=== PATIENT | male | born 1955 | race Caucasian/White ===

== ENCOUNTER 2025-06-30 06:28 | Emergency (ER) | payer MEDICARE, MEDICAID, SELFPAY ==
[2025-06-30] VITALS (9 sets, daily range): BP systolic 146–159; BP diastolic 91–108; PULSE 87–95; RESP 12–25; TEMP 36.4; O2SAT 89–96
--- NOTE | 2025-06-30 07:21 | ECG_ITS ---
Test Date: 2025-06-30 07:41:42 Measurements Intervals [place] Rate: 87 P: 46 WV: 140 QRS: 36 QRSD: 92 T: 89 QT: 381 QTc: 459 Interpretive Statements SINUS RHYTHM DELAYED PRECORDIAL R/S TRANSITION NONSPECIFIC ST & T-WAVE ABNORMALITY- LAT/HIGH LAT LEADS BASELINE ARTIFACT- I, II, AVR, AVL, V1-V2 BORDERLINE ECG Compared to ECG 06/16/2025 10:21:42 HEART RATE HAS DECREASED Possible ischemia no longer present Electronically Signed On 06-30-2025 08:00:09 CDT by Sanjeev Kellogg D.O.
[2025-06-30 07:50] LABS: Hematocrit 38.7 % (42.0-52.0); Hemoglobin 11.8 g/dL (14.0-18.0); Immature Granulocyte Percent A 0.7 % (0-0.5); Lymphocytes Absolute Auto 0.40 K/mm3 (0.9-3.2); Mean Corpuscular HGB Conc 30.5 g/dl (32-36); Mean Corpuscular Hemoglobin 27.1 pg (26-34); Mean Corpuscular Volume 88.8 fl (80-100); Nucleated Red Blood Cells Absolute Auto 0.000 K/mm3 (0.0-0.012); Nucleated Red Blood Cells Perc 0.0 % (0.0-0.2); Platelet Count Result 167 k/mm3 (150-375); Red Blood Count 4.36 M/mm3 (4.6-6.20); White Blood Count 7.5 K/mm3 (4.5-10.0)
[2025-06-30 08:20] LABS: Add Urine Microscopic? YES; Appearance Urine Clear (Clear); Glucose Urine UA Negative (Negative); Leukocyte Esterase Ur Negative LEU/UL (Negative); Nitrate Urine Negative (Negative); Non Pathogenic Casts 0-2; Specific Grav Ur 1.016 (1.001-1.035)
[2025-06-30 08:20] LABS: Alanine Aminotransferase 40 U/L (6-50); Albumin Level 3.3 g/dL (3.5-5.1); Alkaline Phosphatase 103 U/L (38-126); Anion Gap 5 mmol/L (4-12); Aspartate Amino Transferase 59 U/L (17-59); Bilirubin,Total 0.3 mg/dL (0.2-1.3); Blood Urea Nitrogen 45 mg/dL (9-20); Calcium 8.9 mg/dL (8.4-10.2); Carbon Dioxide 35 mmol/L (22-30); Chloride 100 mmol/L (98-107); Estimated CRCL calculation 47 ml/min; Estimated Glomerular Filt Rate 49; Glucose 130 mg/dL (65-110); Potassium 4.5 mmol/L (3.4-5.0); Sodium 140 mmol/L (137-145); Total Protein 6.9 g/dL (6.3-8.2)
[2025-06-30 08:40] LABS: INR 1.2; Prothrombin Time 15.3 Seconds (11.1-14.7)
[2025-06-30 08:41] LABS: Partial Thromboplastin Time 33.4 Seconds (22.3-36.8)
--- OUTSIDE RECORDS SUMMARY | 2025-06-30 09:14 | XMS_ITS | Data Portability ---
Author Organization [facility] Address [address] [place] [address] Care Team Providers Care Day Light Relief Operator Name Role Phone ANUJA BAUMAN Primary Care Provider [phone] Assessment No assessment recorded. Plan of Treatment Reminders Order Date Submit Date Provider Last Modified By Organization Details Last Modified Time Details Appointments None recorded. Lab CBC w/ auto diff 2020 PAULGABRIEL Pang, [address], [address], [place], [address], 11:11:31 ESR (erythrocy te sedimentat ion rate), blood 2020 [facility], 20[address], [address], [place], [address], 11:11:33 C reactive protein, QN, serum or plasma 2020 [facility], 20[address], [address], [place], [address], 11:11:34 HbA1c (hemoglobi n A1c), blood 2020 MARANA Bird, 2022 [address], [address], [place], [address], 11:11:32 basic metabolic 1998 panel, serum or plasma 2020 MARANA Bird, 2022 [address], [address], [place], [address], 1 11:11:31 PSA, total, serum or plasma 2020 021 [facility], 2022 [address], [address], [place], [address], 1 11:11:33 HbA1c (hemoglobi n A1c), blood 2020 021 [facility], 2022 [address] Clarke, [address], [place], [address], 1 18:46:18 BMP, serum or plasma 2020 021 [facility], 2022 Ivan Clarke, [address], [place], [address], 1 18:46:17 glucose, fasting, QN, serum or plasma 2019 020 [facility], 2022 Ivan Clarke, [address], [place], [address], 0 03:04:11 noninvasiv e colorectal cancer DNA + occult blood screening, stool 2019 020 MARANA [facility], [address], [address], [place], [address], 0 10:19:45 hemoglobin + hematocrit , blood 2019 020 [facility], 2022 Ivan Clarke, [address], [place], [address], 0 03:04:11 TSH + free T4, serum 2019 020 [facility], 2022 Ivan Clarke, [address], [place], [address], 0 03:04:11 drug screen, urine 2019 020 [facility], 2022 Ivan Clarke, [address], [place], [address], 0 13:09:03 CBC w/ auto diff 2019 020 [facility], 2022 Ivan Clarke, [address], [place], [address], 0 11:11:10 magnesium, serum or plasma 2019 [facility], 2022 Ivan Clarke, [address], [place], [address], 0 11:11:14 PSA, total, serum or plasma 2019 [facility], 2022 Ivan Clarke, [address], [place], [address], 0 11:11:13 HbA1c (hemoglobi n A1c), blood 2019 020 [facility], 2022 Ivan Clarke, [address], [place], [address], 0 11:11:12 lipid panel, serum 2019 [facility], 2022 Ivan Clarke, [address], [place], [address], 0 11:11:11 microalbum in, urine 2019 [facility], 2022 Ivan Clarke, [address], [place], [address], 0 13:09:05 CMP, serum or plasma 2019 020 [facility], 2022 Ivan Clarke, [address], [place], [address], 0 11:11:10 Referral plasma table operator referral - DM foot ulcer; Please contact pt to schedule an appointmen t. 2020 [facility], [address], [place], [address], 1 09:50:12 diabetic ophthalmol ogy referral 2020 021 kyle Durán MD, [address] , [place], [address], 2 09:03:50 diabetic ophthalmol ogy referral - Please call patient to schedule appt. Thank you 2019 020 cathy Durán MD, [address] , [place], [address], 0 12:50:[address] referral - Please call patient to schedule appt. Thank you 2019 020 cathy Merida (), [address], [place], [address], 0 11:18:45 counseling referral 2019 020 santana Olsen PROJECT ACCOUNT MANAGER, [address] [place], [address], 0 16:54:13 Procedures None recorded. Surgeries None recorded. Imaging XR, foot, 3 or more view - Ulcer, mid plantar aspect of the right foot 2020 021 [facility] ([facility]), [address] [place], [address], 1 15:46:57 LDCT, chest, for lung cancer screening [address] ([facility]), [address] [place], [address], 1 17:23:00 Medication Orders Bactrim DS 800 mg-160 mg tablet 2020 021 [facility], [address] [place], [address], 1 17:04:41 rosuvastat in 10 mg tablet 2020 [facility], [address] [place], [address], 1 17:04:21 losartan 25 mg tablet 2020 [facility], [address] [place] [address], [address], 1 06:12:42 Basaglar KwikPen U-100 Insulin 100 unit/mL (3 mL) [facility] 2020 021 INTERFACE- [id number] [facility], [address] [place] [address], [address], 1 09:37:15 Basaglar KwikPen U-100 Insulin 100 unit/mL (3 mL) [facility] 2019 INTERFACE- [id number] [facility], [address] [place] [address], [address], 1 09:37:15 venlafaxin e ER 37.5 mg capsule,ex tended release 24 hr 2019 [facility], [address] [place] [address], [address], 1 16:34:09 Viagra 100 mg tablet 2019 [facility], [address] [place] [id number], 0 12:56:05 magnesium 400 mg (as magnesium oxide) tablet 2019 [facility], [address] [place], [address], 0 12:21:49 magnesium citrate oral solution 2019 [facility], [address] [place], [address], 0 12:21:57 DOK 100 mg capsule 2019 [facility], [address] [place] [address], [address], 0 12:41:53 OneTouch Verio test strips 2019 [facility], [address] [place] [address], [address], 0 13:52:08 Patient TargetsNo targets recorded. Patient Instructions Encounter Date Encounter Id Patient Instructions Last Modified By Organization Details Last Modified Time 05/06/2020 [id number] Erection Problems: Care Instructions oajao Not available 05/06/2020 12:59:59 HH D/C summary from the October 2019 admission and the most recent discharge (April). Labs Follow up Shower chair oacheyanneo Not available 05/06/2020 13:53:00 Detailed visit oajao Not available 0 05/06/2020 13:50:43 06/10/2020 [id number] type 2 diabetes: care instructions oajao Not available 06/10/2020 12:46:07 anemia: care instructions oajao Not available 06/10/2020 12:46:07 Labs Ophthamolog y Counseling/Psychi atry Restart Effexor, side effects were discussed Increase Basaglar to 8 units HS Follow up in 2 months Follow up on the order for a ROHO cushion Addendum Cologuard oajao Not available 06/10/2020 13:02:02 Detailed visit With regards to his need for assistance at home he has contacted [facility] and the dept of Aging oacheyanneo Not available 06/10/2020 14:10:09 08/24/2020 [id number] Labs as previusl y ordered Adult pull ups Follow up in 3 months oajao Not available 08/24/2020 13:48:12 12/04/2020 [id number] type 2 diabetes: care instructions oajao Not available 12/04/2020 16:17:44 Labs, new and ol d orders Follow up in 4 weeks oajao Not available 12/04/2020 18:45:55 09/10/2021 [id number] Quitting Tobacco : Care Instructions oajao Not available 09/10/2021 17:04:21 type 2 diabetes: care instructions oajao Not available 09/10/2021 17:04:21 high blood pressure: care instructions oajao Not available 09/10/2021 17:04:22 learning about high blood pressure oajao Not available 09/10/2021 17:04:22 Podiatry RYAN Start Bactrim, side effects were discussed Labs today Follow up in 2 weeks LDCT Start Rosuvastatin Start Losartan oajao Not available 09/10/2021 19:18:02 Reason for Referral Diabetic Ophthalmology Refer ral for Uncontrolled type 2 diabetes mellitus Please call patient to schedule appt. Thank you Referring Physician: Reji Macario Internal Medicine, Encounter Date: 06/10/2020 Psychiatrist Referral for Mi xed anxiety and depressive disorder Please call patient to schedule appt. Thank you Referring Physician: Reji Macario Internal Medicine, Encounter Date: 06/10/2020 Counseling Referral for Mixe d anxiety and depressive disorder Referring Physician: Reji Macario Internal Medicine, Encounter Date: 06/10/2020 Diabetic Ophthalmology Refer ral for Uncontrolled type 2 diabetes mellitus Referring Physician: Reji Macario Internal Medicine, Encounter Date: 09/10/2021 Wood Panel Inspector Referral for 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 DM foot ulcer DM foot ulcer; Please contact pt to schedule an appointment. Referring Physician: Reji Macario Internal Medicine, Encounter Date: 09/10/2021 Results Created Date Observation Date Name Description Value Unit Range Abnormal Flag Note LastModifiedBy Organization Detail LastModifiedTime 04/08/20 20 04/08/2020 gluco se, QN, test strip , auto, blood POC glucose 142 mg/dL 70-99 high Not Available [facility] [address], [place], [address], 04/08/2020 10:49:18 05/19/20 20 05/20/2020 CBC w/ auto diff WBC 5.1 x10e3 /uL 3.4-10 .8 Not Available [facility] ([facility]) [address] [place], [address], 05/20/2020 11:11:09 05/19/20 20 05/20/2020 CBC w/ auto diff RBC 4.29 x10e6 /uL 4.14-5 .80 Not Available [facility] ([facility]) [address] [place], [address], 05/20/2020 11:11:09 05/19/20 20 05/20/2020 CBC w/ auto diff hemoglobin 11.8 g/dL 13.0-1 7.7 below low normal Not Available [facility] ([facility]) [address] [place], [address], 05/20/2020 11:11:09 05/19/20 20 05/20/2020 CBC w/ auto diff hematocrit 36.8 % 37.5-5 1.0 below low normal Not Available [facility] ([facility]) [address] [place], [address], 05/20/2020 11:11:09 05/19/20 20 05/20/2020 CBC w/ auto diff MCV 86 fL 79-97 Not Available [facility] ([facility]) [address] [place], [address], 05/20/2020 11:11:09 05/19/20 20 05/20/2020 CBC w/ auto diff MCH 27.5 pg 26.6-3 3.0 Not Available [facility] ([facility]) [address] [place], [address], 05/20/2020 11:11:09 05/19/20 20 05/20/2020 CBC w/ auto diff MCHC 32.1 g/dL 31.5-3 5.7 Not Available [facility] ([facility]) [address] [facility], [place], [address], 05/20/2020 11:11:09 05/19/20 20 05/20/2020 CBC w/ auto diff RDW 17.1 % 11.6-1 5.4 above high normal Not Available [facility] ([facility]) [address] [place], [address], 05/20/2020 11:11:09 05/19/20 20 05/20/2020 CBC w/ auto diff platelets 299 x10e3 /uL 150-45 0 Not Available [facility] ([facility]) [address] [place], [address], 05/20/2020 11:11:09 05/19/20 20 05/20/2020 CBC w/ auto diff neutrophils 50 % not estab. Not Available [facility] ([facility]) [address] [place], [address], 05/20/2020 11:11:09 05/19/20 20 05/20/2020 CBC w/ auto diff lymphs 35 % not estab. Not Available [facility] ([facility]) [address] [place], [address], 05/20/2020 11:11:09 05/19/20 20 05/20/2020 CBC w/ auto diff monocytes 9 % not estab. Not Available [facility] ([facility]) [address] [place], [address], 05/20/2020 11:11:09 05/19/20 20 05/20/2020 CBC w/ auto diff eos 5 % not estab. Not Available [facility] ([facility]) [address] [place], [address], 05/20/2020 11:11:09 05/19/20 20 05/20/2020 CBC w/ auto diff basos 1 % not estab. Not Available [facility] ([facility]) [address] [facility], [place], [address], 05/20/2020 11:11:09 05/19/20 20 05/20/2020 CBC w/ auto diff immature cells EXPRESS MANAGER Not Available [facility] ([facility]) [address] [place], [address], 05/20/2020 11:11:09 05/19/20 20 05/20/2020 CBC w/ auto diff neutrophils (absolute) 2.6 x10e3 /uL 1.4-7. 0 Not Available [facility] ([facility]) [address] [place], [address], 05/20/2020 11:11:09 05/19/20 20 05/20/2020 CBC w/ auto diff lymphs (absolute) 1.8 x10e3 /uL 0.7-3. 1 Not Available [facility] ([facility]) [address] [place], [address], 05/20/2020 11:11:09 05/19/20 20 05/20/2020 CBC w/ auto diff monocytes(ab solute) 0.4 x10e3 /uL 0.1-0. 9 Not Available [facility] ([facility]) [address] [place], [address], 05/20/2020 11:11:09 05/19/20 20 05/20/2020 CBC w/ auto diff eos (absolute) 0.3 x10e3 /uL 0.0-0. 4 Not Available [facility] ([facility]) [address] [place], [address], 05/20/2020 11:11:09 05/19/20 20 05/20/2020 CBC w/ auto diff baso (absolute) 0.0 x10e3 /uL 0.0-0. 2 Not Available [facility] ([facility]) [address] [place], [address], 05/20/2020 11:11:09 05/19/20 20 05/20/2020 CBC w/ auto diff immature granulocytes 0 % not estab. Not Available [facility] ([facility]) [address] [facility], [place], [address], 05/20/2020 11:11:09 05/19/20 20 05/20/2020 CBC w/ auto diff immature grans (abs) 0.0 x10e3 /uL 0.0-0. 1 Not Available [facility] ([facility]) [address] [place], [address], 05/20/2020 11:11:09 05/19/20 20 05/20/2020 CBC w/ auto diff NRBC EXPRESS MANAGER Not Available [facility] ([facility]) [address] [place], [address], 05/20/2020 11:11:09 05/19/20 20 05/20/2020 CBC w/ auto diff hematology comments: EXPRESS MANAGER Not Available [facility] ([facility]) [address] [place], [address], 05/20/2020 11:11:09 05/19/20 20 05/20/2020 CMP, serum or plasm a glucose 182 mg/dL 65-99 above high normal Not Available [facility] ([facility]) [address] [place], [address], 05/20/2020 11:11:10 05/19/20 20 05/20/2020 CMP, serum or plasm a BUN 18 mg/dL 8-27 Not Available [facility] ([facility]) [address] [place], [address], 05/20/2020 11:11:10 05/19/20 20 05/20/2020 CMP, serum or plasm a creatinine 0.67 mg/dL 0.76-1 .27 below low normal Not Available [facility] ([facility]) [address] [facility] [place], [address], 05/20/2020 11:11:10 05/19/20 20 05/20/2020 CMP, serum or plasm a eGFR if nonafricn AM 102 mL/mi n/1.7 3 >59 Not Available [facility] ([facility]) [address] [facility] [place], [address], 05/20/2020 11:11:10 05/19/20 20 05/20/2020 CMP, serum or plasm a eGFR if africn AM 118 mL/mi n/1.7 3 >59 Not Available [facility] ([facility]) [address] [facility] [place], [address], 05/20/2020 11:11:10 05/19/20 20 05/20/2020 CMP, serum or plasm a BUN/creatini ne ratio 27 10-24 above high normal Not Available [facility] ([facility]) [address] [facility] [place], [address], 05/20/2020 11:11:10 05/19/20 20 05/20/2020 CMP, serum or plasm a sodium 140 mmol/ L 134-14 4 Not Available [facility] ([facility]) [address] [place], [address], 05/20/2020 11:11:10 05/19/20 20 05/20/2020 CMP, serum or plasm a potassium 4.6 mmol/ L 3.5-5. 2 Not Available [facility] ([facility]) [address] [place], [address], 05/20/2020 11:11:10 05/19/20 20 05/20/2020 CMP, serum or plasm a chloride 102 mmol/ L 96-106 Not Available [facility] ([facility]) [address] [place], [address], 05/20/2020 11:11:10 05/19/20 20 05/20/2020 CMP, serum or plasm a carbon dioxide, total 23 mmol/ L Not Available [facility] ([facility]) [address] [facility] [place], [address], 05/20/2020 11:11:10 05/19/20 20 05/20/2020 CMP, serum or plasm a calcium 9.4 mg/dL 8.6-10 .2 Not Available [facility] ([facility]) [address] [facility] [place], [address], 05/20/2020 11:11:10 05/19/20 20 05/20/2020 CMP, serum or plasm a protein, total 7.7 g/dL 6.0-8. 5 Not Available [facility] ([facility]) [address] [place], [address], 05/20/2020 11:11:10 05/19/20 20 05/20/2020 CMP, serum or plasm a albumin 3.7 g/dL 3.8-4. 8 below low normal Not Available [facility] ([facility]) [address] [place], [address], 05/20/2020 11:11:10 05/19/20 20 05/20/2020 CMP, serum or plasm a globulin, total 4.0 g/dL 1.5-4. 5 Not Available [facility] ([facility]) [address] [place], [address], 05/20/2020 11:11:10 05/19/20 20 05/20/2020 CMP, serum or plasm a A/G ratio 0.9 1.2-2. 2 below low normal Not Available [facility] ([facility]) [address] [place], [address], 05/20/2020 11:11:10 05/19/20 20 05/20/2020 CMP, serum or plasm a bilirubin, total 0.2 mg/dL 0.0-1. 2 Not Available [facility] ([facility]) [address] [facility] [place], [address], 05/20/2020 11:11:10 05/19/20 20 05/20/2020 CMP, serum or plasm a alkaline phosphatase 97 IU/L 39-117 Not Available [facility] ([facility]) [address] [facility] [place], [address], 05/20/2020 11:11:10 05/19/20 20 05/20/2020 CMP, serum or plasm a AST (SGOT) 53 IU/L 0-40 above high normal Not Available [facility] ([facility]) [address] [facility] [place], [address], 05/20/2020 11:11:10 05/19/20 20 05/20/2020 CMP, serum or plasm a ALT (SGPT) 54 IU/L 0-44 above high normal Not Available [facility] ([facility]) [address] [facility] [place], [address], 05/20/2020 11:11:10 05/19/20 20 05/20/2020 lipid panel , serum cholesterol, total 146 mg/dL 100-19 9 Not Available [facility] ([facility]) [address] [facility] [place], [address], 05/20/2020 11:11:11 05/19/20 20 05/20/2020 lipid panel , serum triglyceride s 112 mg/dL 0-149 Not Available [facility] ([facility]) [address] [facility] [place], [address], 05/20/2020 11:11:11 05/19/20 20 05/20/2020 lipid panel , serum HDL cholesterol 38 mg/dL >39 below low normal Not Available [facility] ([facility]) [address] [facility] [place], [address], 05/20/2020 11:11:11 05/19/20 20 05/20/2020 lipid panel , serum VLDL cholesterol jt 22 mg/dL 5-40 Not Available [facility] ([facility]) [address] [facility], [place], [address], 05/20/2020 11:11:11 05/19/20 20 05/20/2020 lipid panel , serum LDL cholesterol calc 86 mg/dL 0-99 Eff ectiv e Augus t 2019, [facility] is imple menti ng an impro patel equat ion to calcu late Low Densi ty Lipop rotei n Saniya stero l (LDL- C) drea ntrat ions, to be used in all lipid panel s that repor t calcu lated LDL-C . This equat ion was devel oped throu gh a colla borat ion with the [facility] ([facility]) .[1] The [facility] calcu latio n overc omes the limit ation s of the exist ing Fried leo LDL-C equat ion and perfo jaxson equal ly well in both fasti ng and non-f astin g indiv idual s. 1. Nati emery M, Snehal Barbosa, Sravanthi Q, et al. A new equat ion for calcu latio n of low-d ensit y lipop rotei n saniya stero l in patie nts with normo lipid emia and/o r hyper trigl yceri demia . ROYER Cardi ol. 2019Nov 20. doi:1 0.100 Miguel/juan ramon romero io.20 20.00 13 Not Available [facility] ([facility]) [address] [facility], [place], [address], 05/20/2020 11:11:11 05/19/20 20 05/20/2020 lipid panel , serum comment: EXPRESS MANAGER Not Available [facility] ([facility]) [address] [facility], [place], [address], 05/20/2020 11:11:11 05/19/20 20 05/20/2020 lipid panel , serum LDL/HDL ratio 2.3 ratio 0.0-3. 6 LDL/H DL Ratio Men Women 1/2 Avg.R isk 1.0 1.5 Avg.R isk 3.6 3.2 2X Avg.R isk 6.2 5.0 3X Avg.R isk 8.0 6.1 Not Available [facility] ([facility]) [address] [facility], [place], [address], 05/20/2020 11:11:11 05/19/20 20 05/20/2020 HbA1c (hemo globi n A1c), blood hemoglobin A1C 7.3 % 4.8-5. 6 above high normal Predi abete s: 5.7 - 6.4 Diabe juana: >6.4 Glyce christine contr ol for adult s with diabe juana: <7.0 Not Available [facility] ([facility]) [address] [facility], [place], [address], 05/20/2020 11:11:12 05/19/20 20 05/20/2020 PSA, total , serum or plasm a prostate specific Ag, serum 0.5 NG/mL 0.0-4. 0 Tami ECLIA metho dolog y. Accor ding to the Ameri can Urolo gical Assoc iatio n, Serum PSA shoul d decre ase and remai n at undet ectab le level s after radic al prost atect silvia. The AUA defin es bioch emica l recur rence as an initi al PSA value 0.2 ng/mL or great er follo wed by a subse quent confi rmato ry PSA value 0.2 ng/mL or great er. Value s obtai gordy with diffe rent assay metho ds or kits canno t be used inter forrester eably . Resul ts canno t be inter prete d as absol jackson evide nce of the prese nce or absen ce of nolan ruby se. Not Available [facility] ([facility]) [address] [facility], [place], [address], 05/20/2020 11:11:13 05/19/20 20 05/20/2020 magne sium, serum or plasm a magnesium 1.6 mg/dL 1.6-2. 3 Not Available [facility] ([facility]) [address] [facility], [place], [address], 05/20/2020 11:11:14 05/19/20 20 05/20/2020 diabe juana patie nt educa tion pdf . Not Available [facility] ([facility]) [address] [facility], [place], [address], 05/20/2020 11:11:15 06/24/20 20 06/24/2020 nonin vasiv e color ectal cance r DNA + occul t blood scree ric, stool cologuard result reportable NEGATI VE not applic able A negat karis resul t indic ates a low likel ihood that a color ectal cance r (CRC) or an advan mariely adeno ma (shemar omato us polyp s with more advan mariely pre-m align ant featu res) is prese nt. The [facility] e that a perso n with a negat karis Colog uard test has a color ectal cance r is less than 1 in 1500 (nega tive predi ctive value >99.9 %) or has an advan mariely adeno ma is less than 5.3% (nega tive predi ctive value 94.7% ). These data are based on a prosp ectiv e cross -sect ional scree ric study of 10,00 0 indiv idual s at [facility] risk for color ectal cance r who were scree gordy with both Colog uard and colon oscop y. (Murphy Akbar et al, N Engl J Med 2014; 370(1 4):12 86-12 97) The jorge l l value (refe rence range ) for this assay is negat karis. COLOG UARD RE-SC REENI NG RECOM MENDA TION: Perio dic routi ne color ectal cance r scree ric is an impor tant part of preve ntive healt hcare for asymp tomat ic perso ns at [facility] risk for color ectal cance r. Follo wing a negat karis Colog uard resul t, the Ameri can Cance r Socie ty and U.S. Multi -Soci ety Task Force scree ric guide lines recom mend a Colog uard re-sc marcellus li inter cara of 3 years . Refer ences : Ameri can Cance r Socie ty (ACS) . Color ectal cance r preve ntion and early detec tion. Coty moreno [place]: Ameri can Cance r Socie ty; [upda reyes 2015Jan 16]. https ://ww w.can cer.o rg/ca ncer/ colon -rect al-ca ncer/ detec tion- diagn osis- stagi ng/ac s-rec ommen datio ns.ht ml. Acces sed Augus t 2017; Brendan BALDERAS, Kaushik RICH, Edouard MENJIVAR, Color ectal Cance r Scree ric: Recom menda tions for Physi cians and Patie nts from the U.S. Multi -Soci ety Task Force on Color ectal Cance r Scree ric, Abe Gar Gastr soto dunbar y 2017; 112:1 016-1 030. TEST TYPE: [place] site algor ithmi c roberto sis of stool DNA-b iojose kers with hemog lobin immun oassa y. Quant itati ve value s of indiv idual bioma rkers are not repor table and are not assoc iated with indiv idual bioma rker resul t refer ence range s. PRECA UTION S AND LIMIT ATION S: Colog uard is inten ded for color ectal cance r scree ric of adult s of eithe r sex, 45 years or older , who are at [facility] for color ectal cance r (CRC) . Colog uard has been appro patel for use by the U.S. FDA. Colog uard may produ ce a false negat karis or false posit karis resul t. A negat karis Colog uard test resul t does not guara ntee the absen ce of CRC or advan mariely adeno ma (pre- cance r). Patie nts with a negat karis Colog uard test resul t elías d be advis ed to mildred nue parti cipat ing in a color ectal cance r scree ric progr am. The scree ric inter cara for Colog uard is curre ntly recom bhavya d at an inter cara of every 3 years by the Ameri can Cance r Socie ty and [place].S. Multi -Soci ety Task Force . A false posit karis resul t occur s when Colog uard produ pradeep a posit karis resul t, even thoug h a colon oscop y may not find color ectal cance r or preca ncero us polyp s. The perfo rmanc e of Colog uard has been estab lishe d in a cross secti onal study (i.e. , singl e point in time) of [facility] adult s aged 50-84 . Colog uard perfo rmanc e in patie nts ages 45 to 49 years was estim ated by sub-g roup roberto sis of near- age group s. Colog uard perfo rmanc e data in a 10,00 0 patie nt pivot al study using colon oscop y as the refer ence metho d can be acces sed at the follo wing locat ion: www.e xactl abs.c om/re suldanelle . Addit ional descr iptio n of the Colog uard test proce ss, warni ngs and preca ution s can be found at www.[facility]. Rx only. Not Available [facility] [address], [place], [address], 06/30/2020 10:19:45 09/14/20 21 09/15/2021 CBC WITH DIFFE RENTI AL/PL ATELE T WBC 6.9 x10e3 /uL 3.4-10 .8 Not Available [facility] ([facility]) [address] [facility], [place], [address], 09/15/2021 11:11:31 09/14/20 21 09/15/2021 CBC WITH DIFFE RENTI AL/PL ATELE T RBC 5.02 x10e6 /uL 4.14-5 .80 Not Available [facility] ([facility]) [address] [facility], [place], [address], 09/15/2021 11:11:31 09/14/20 21 09/15/2021 CBC WITH DIFFE RENTI AL/PL ATELE T hemoglobin 14.7 g/dL 13.0-1 7.7 Not Available [facility] ([facility]) [address] [facility], [place], [address], 09/15/2021 11:11:31 09/14/20 21 09/15/2021 CBC WITH DIFFE RENTI AL/PL ATELE T hematocrit 43.9 % 37.5-5 1.0 Not Available [facility] ([facility]) [address] [facility], [place], [address], 09/15/2021 11:11:31 09/14/20 21 09/15/2021 CBC WITH DIFFE RENTI AL/PL ATELE T MCV 88 fL 79-97 Not Available [facility] ([facility]) [address] [facility], [place], [address], 09/15/2021 11:11:31 09/14/20 21 09/15/2021 CBC WITH DIFFE RENTI AL/PL ATELE T MCH 29.3 pg 26.6-3 3.0 Not Available [facility] ([facility]) [address] [place], [address], 09/15/2021 11:11:31 09/14/20 21 09/15/2021 CBC WITH DIFFE RENTI AL/PL ATELE T MCHC 33.5 g/dL 31.5-3 5.7 Not Available [facility] ([facility]) [address] [place], [address], 09/15/2021 11:11:31 09/14/20 21 09/15/2021 CBC WITH DIFFE RENTI AL/PL ATELE T RDW 13.3 % 11.6-1 5.4 Not Available [facility] ([facility]) [address] [facility], [place], [address], 09/15/2021 11:11:31 09/14/20 21 09/15/2021 CBC WITH DIFFE RENTI AL/PL ATELE T platelets 235 x10e3 /uL 150-45 0 Not Available [facility] ([facility]) [address] [facility], [place], [address], 09/15/2021 11:11:31 09/14/20 21 09/15/2021 CBC WITH DIFFE RENTI AL/PL ATELE T neutrophils 62 % not estab. Not Available [facility] ([facility]) [address] [facility], [place], [address], 09/15/2021 11:11:31 09/14/20 21 09/15/2021 CBC WITH DIFFE RENTI AL/PL ATELE T lymphs 25 % not estab. Not Available [facility] ([facility]) [address] [facility], [place], [address], 09/15/2021 11:11:31 09/14/20 21 09/15/2021 CBC WITH DIFFE RENTI AL/PL ATELE T monocytes 8 % not estab. Not Available [facility] ([facility]) [address] [facility], [place], [address], 09/15/2021 11:11:31 09/14/20 21 09/15/2021 CBC WITH DIFFE RENTI AL/PL ATELE T eos 4 % not estab. Not Available [facility] ([facility]) [address] [facility], [place], [address], 09/15/2021 11:11:31 09/14/20 21 09/15/2021 CBC WITH DIFFE RENTI AL/PL ATELE T basos 1 % not estab. Not Available [facility] ([facility]) [address] [facility], [place], [address], 09/15/2021 11:11:31 09/14/20 21 09/15/2021 CBC WITH DIFFE RENTI AL/PL ATELE T immature cells EXPRESS MANAGER Not Available [facility] ([facility]) [address] [place], [address], 09/15/2021 11:11:31 09/14/20 21 09/15/2021 CBC WITH DIFFE RENTI AL/PL ATELE T neutrophils (absolute) 4.3 x10e3 /uL 1.4-7. 0 Not Available [facility] ([facility]) [address] [place], [address], 09/15/2021 11:11:31 09/14/20 21 09/15/2021 CBC WITH DIFFE RENTI AL/PL ATELE T lymphs (absolute) 1.7 x10e3 /uL 0.7-3. 1 Not Available [facility] ([facility]) [address] [place], [address], 09/15/2021 11:11:31 09/14/20 21 09/15/2021 CBC WITH DIFFE RENTI AL/PL ATELE T monocytes(ab solute) 0.6 x10e3 /uL 0.1-0. 9 Not Available [facility] ([facility]) [address] [place], [address], 09/15/2021 11:11:31 09/14/20 21 09/15/2021 CBC WITH DIFFE RENTI AL/PL ATELE T eos (absolute) 0.2 x10e3 /uL 0.0-0. 4 Not Available [facility] ([facility]) [address] [place], [address], 09/15/2021 11:11:31 09/14/20 21 09/15/2021 CBC WITH DIFFE RENTI AL/PL ATELE T baso (absolute) 0.1 x10e3 /uL 0.0-0. 2 Not Available [facility] ([facility]) [address] [place], [address], 09/15/2021 11:11:31 09/14/20 21 09/15/2021 CBC WITH DIFFE RENTI AL/PL ATELE T immature granulocytes 0 % not estab. Not Available [facility] ([facility]) [address] [facility], [place], [address], 09/15/2021 11:11:31 09/14/20 21 09/15/2021 CBC WITH DIFFE RENTI AL/PL ATELE T immature grans (abs) 0.0 x10e3 /uL 0.0-0. 1 Not Available [facility] ([facility]) [address] [facility], [place], [address], 09/15/2021 11:11:31 09/14/20 21 09/15/2021 CBC WITH DIFFE RENTI AL/PL ATELE T NRBC EXPRESS MANAGER Not Available [facility] ([facility]) [address] [facility], [place], [address], 09/15/2021 11:11:31 09/14/20 21 09/15/2021 CBC WITH DIFFE RENTI AL/PL ATELE T hematology comments: EXPRESS MANAGER Not Available [facility] ([facility]) [address] [facility], [place], [address], 09/15/2021 11:11:31 09/14/20 21 09/15/2021 BASIC METAB OLIC PANEL (7) glucose 192 mg/dL 65-99 above high normal Not Available [facility] ([facility]) [address] [place], [address], 09/15/2021 11:11:31 09/14/20 21 09/15/2021 BASIC METAB OLIC PANEL (7) BUN 29 mg/dL 8-27 above high normal Not Available [facility] ([facility]) [address] [place], [address], 09/15/2021 11:11:31 09/14/20 21 09/15/2021 BASIC METAB OLIC PANEL (7) creatinine 0.85 mg/dL 0.76-1 .27 Not Available [facility] ([facility]) [address] [facility], [place], [address], 09/15/2021 11:11:31 09/14/20 21 09/15/2021 BASIC METAB OLIC PANEL (7) eGFR if nonafricn AM 92 mL/mi n/1.7 3 >59 Not Available [facility] ([facility]) [address] [facility], [place], [address], 09/15/2021 11:11:31 09/14/20 21 09/15/2021 BASIC METAB OLIC PANEL (7) eGFR if africn AM 106 mL/mi n/1.7 3 >59 In accor dance with recom menda tirodri from the NKF-A SN Task force , [facility] is in the proce ss of updat ing its eGFR calcu latio n to the 2020 CKD-E PI creat inine equat ion that estim ates kidne y funct ion witho ut a race varia ble. Not Available [facility] ([facility]) [address] [facility], [place], [address], 09/15/2021 11:11:31 09/14/20 21 09/15/2021 BASIC METAB OLIC PANEL (7) BUN/creatini ne ratio 34 10-24 above high normal Not Available [facility] ([facility]) [address] [facility], [place], [address], 09/15/2021 11:11:31 09/14/20 21 09/15/2021 BASIC METAB OLIC PANEL (7) sodium 137 mmol/ L 134-14 4 Not Available [facility] ([facility]) [address] [facility], [place], [address], 09/15/2021 11:11:31 09/14/20 21 09/15/2021 BASIC METAB OLIC PANEL (7) potassium 5.0 mmol/ L 3.5-5. 2 Not Available [facility] ([facility]) [address] [place], [address], 09/15/2021 11:11:31 09/14/20 21 09/15/2021 BASIC METAB OLIC PANEL (7) chloride 97 mmol/ L 96-106 Not Available [facility] ([facility]) [address] [place], [address], 09/15/2021 11:11:31 09/14/20 21 09/15/2021 BASIC METAB OLIC PANEL (7) carbon dioxide, total 24 mmol/ L 20-29 Not Available [facility] ([facility]) [address] [place], [address], 09/15/2021 11:11:31 09/14/20 21 09/15/2021 HEMOG LOBIN A1C hemoglobin A1C 10.5 % 4.8-5. 6 above high normal Predi abete s: 5.7 - 6.4 Diabe juana: >6.4 Glyce christine contr ol for adult s with diabe juana: <7.0 Not Available [facility] ([facility]) [address] [facility], [place], [address], 09/15/2021 11:11:32 09/14/20 21 09/15/2021 PROST ATE-S PECIF IC AG prostate specific Ag 0.8 NG/mL 0.0-4. 0 Tami ECLIA metho dolog y. Accor ding to the Ameri can Urolo gical Assoc iatio n, Serum PSA shoul d decre ase and remai n at undet ectab le level s after radic al prost atect silvia. The AUA defin es bioch emica l recur rence as an initi al PSA value 0.2 ng/mL or great er follo wed by a subse quent confi rmato ry PSA value 0.2 ng/mL or great er. Value s obtai gordy with diffe rent assay metho ds or kits canno t be used inter forrester eably . Resul ts canno t be inter prete d as absol jackson evide nce of the prese nce or absen ce of nolan ruby se. Not Available [facility] ([facility]) [address] [facility], [place], [address], 09/15/2021 11:11:33 09/14/20 21 09/15/2021 SEDIM ENTAT ION RATE- WESTE RGREN sedimentatio n rate-westerg rocio 15 mm/HR 0-30 Not Available [facility] ([facility]) [address] [facility], [place], [address], 09/15/2021 11:11:33 09/14/20 21 09/15/2021 C-MACARENA CTIVE PROTE IN, QUANT C-reactive protein, quant 6 mg/L 0-10 Not Available [facility] ([facility]) [address] [facility], [place], [address], 09/15/2021 11:11:34 09/14/20 21 09/15/2021 DIABE JUANA PATIE NT EDUCA TION pdf . Not Available [facility] ([facility]) [address] [facility], [place], [address], 09/15/2021 11:11:35 10/28/19 21 10/18/2020 XR, chest , 2 view No observ ation record ed. [address], [place], [address], 12/04/2020 16:15:37 05/24/20 21 05/17/2021 XR, foot No observ ation record ed. [place] [id number] [facility] [address], [place], [address], 06/01/2021 17:15:01 09/14/20 21 09/14/2021 XR, foot, 3 or more view No observ ation record ed. [facility] ([facility]) [address] [place], [address], 09/23/2021 10:32:21 Result Notes None recorded. Problems Name Problem SNOMED Code Status Onset Date Resolution Date Notes Provider Name and Address Organization Details Recorded Time Carcinoma of prostate 807771685 Active Not Available [facility] 1 09:37:15 Impotence Active Not Available [facility] 09:37:15 Malignant neoplasm of prostate 182772140 Active 2012 Not Available [facility] 1 09:37:15 Uncontroll ed type 2 diabetes mellitus 835804072 Active 2019 Not Available [facility] 1 09:37:15 History of heroin abuse 9718891135501 05 Active 2019 Not Available [facility] 1 09:37:15 Disorder of electrolyt es 725388179 Active 2019 Not Available [facility] 1 09:37:15 Constipati on 91125408 Active 2019 Not Available [facility] 1 09:37:15 Non-compli ant behavior 693776779 Active 2019 Not Available [facility] 1 09:37:15 Amputated below knee 805946984 Active 2019 Not Available [facility] 1 09:37:15 Influenza vaccinatio n declined 513905182 Active 2019 Not Available [facility] 1 09:37:15 Urinary incontinen ce 053656105 Active 2019 Not Available [facility] 1 09:37:15 History of malignant neoplasm of prostate 696644885 Active 2020 Not Available [facility] 1 09:37:15 Problem Notes None recorded. Procedures Surgical History Date Name Laterality Status Provider Name and Address Organization Details Recorded Time 05/01/20 20 amputation of lower limb completed Reji Macario MD Attn: Accounting,[address] [facility], [place], [address], [facility] 05/07/2020 08:34:43 04/03/20 20 amputation of hallux completed Reji Macario MD Attn: Accounting,[address] [facility], [place], [address], [facility] - [facility] 05/06/2020 12:38:22 07/19/20 13 Prostate biopsy, any mthd completed Maria De Jesus [place] - [facility] 10/20/2014 11:15:01 Appendectomy completed Radha Combs [place] - [facility] 02/01/2019 14:43:29 Imaging Results None recorded. Procedure Notes None recorded. Medical Equipment None Reported. Allergies No known drug allergies Medications Name Sig Start Date Stop Date Status Note LastModified by Organization Details LastModified Time losartan 50 mg tablet 2020 active Not Available Not Available Not Avai lable metformin 500 mg tablet Take 1 tablet every day by oral route. 03/27 completed Not Available Not Available Not Available venlafaxi ne ER 37.5 mg capsule,e xtended release 24 hr TAKE 1 CAPSULE BY MOUTH ONCE DAILY 09/10 completed Not Available Not Available Not Available atorvasta tin 20 mg tablet 02/01 completed Not Available Not Available Not Available hydrocodo ne 5 mg-acetam inophen 325 mg tablet 06/10 completed Not Available Not Available Not Available glipizide ER 10 mg tablet, extended release 24 hr 02/01 completed Not Available Not Available Not Available lisinopri l 20 mg tablet active Not Available Not Available Not Available glipizide 10 mg tablet 02/01 completed Not Available Not Available Not Available atenolol 25 mg tablet 02/01 completed Not Available Not Available Not Available Lantus U-100 Insulin 100 unit/mL subcutane ous solution 6 units HS 08/24 completed Not Available Not Available Not Available metronida zole 500 mg tablet 05/06 completed Not Available Not Available Not Available ciproflox acin 500 mg tablet 02/01 completed Not Available Not Available Not Available sulfameth oxazole 800 mg-trimet hoprim 160 mg tablet Take 1 tablet every 12 hours by oral route as directed for 7 days. active Not Available Not Available No t Available magnesium oxide 400 mg (241.3 mg magnesium ) tablet 06/10 completed Not Available Not Available Not Available pravastat in 10 mg tablet TAKE 1 TABLET BY MOUTH ONCE DAILY DIRECTED FOR 90 DAYS 09/10 completed Not Available Not Available Not Available DOK 100 mg capsule Take 1 capsule every day by oral route around the clock for 30 days. 06/10 completed Not Available Not Available Not Available Humalog U-100 Insulin 100 unit/mL subcutane ous solution 05/06 completed Not Available Not Available Not Available metformin 1,000 mg tablet TAKE 1 TABLET BY MOUTH TWICE DAILY DIRECTED FOR 90 DAYS 09/10 completed GI symptoms Not Available Not Available Not Available glimepiri de 4 mg tablet Take 1 tablet every day by oral route as directed for 90 days. 05/06 completed Not Available Not Available Not Available losartan 25 mg tablet Take 1 tablet every day by oral route as directed for 90 days. 2020 active Not Available Not Available Not Avai lable magnesium citrate oral solution Take 150 mL every day by oral route as directed for 2 days. 06/10 completed Not Available Not Available Not Available Viagra 100 mg tablet Take 1 TABLET 1 HOUR PRIOR TO SEXUAL ACTIVITY DIRECTED , BUT NOT TO EXCEED MORE THAN 1 IN 24 HOURS. MUST LAST 30 DAYS active Not Available Not Available No t Available levofloxa pete 500 mg tablet 12/04 completed Not Available Not Available Not Available amoxicill in 500 mg-potass ium clavulana te 125 mg tablet 05/06 completed Not Available Not Available Not Available insulin lispro (U-100) 100 unit/mL subcutane ous pen 7 units with meals active Not Available Not Available No t Available rosuvasta tin 10 mg tablet Take 1 tablet every day by oral route as directed for 90 days. active Not Available Not Available No t Available oxycodone 10 mg tablet Take 1 tablet every 6 hours by oral route as directed for 5 days. 06/10 completed Not Available Not Available Not Available Suprep Bowel Prep Kit 17.5 gram-3.13 gram-1.6 gram oral solution Take 300 mL by oral route for 1 day. 05/06 completed Not Available Not Available Not Available OneTouch Verio test strips USE 1 STRIP TO CHECK GLUCOSE THREE TIMES DAILY active Not Available Not Available No t Available Narcan 4 mg/actuat ion nasal spray 08/24 completed Not Available Not Available Not Available Basaglhanna SotoPen U-100 Insulin 100 unit/mL (3 mL) subcutane ous INJECT 13 UNITS SUBCUTAN EOUSLY ONCE DAILY DIRECTED active 11 Not Available Not Available No t Available TRUEplus Pen Needle 31 gauge x 02/07 USE 1 ONCE DAILY active Not Available Not Available No t Available Dexcom G6 Sensor device 2020 active Not Available Not Available Not Avai lable Dexcom G6 Insert Operator 2020 active Not Available Not Available Not Avai lable Dexcom G6 Transmitt er device 2020 active Not Available Not Available Not Avai lable magnesium 400 mg (as magnesium oxide) tablet Take 1 tablet twice a day by oral route as directed for 5 days. 06/10 completed Not Available Not Available Not Available OneTouch Delica Plus Lancet 33 gauge active Not Available Not Available Not Available Vitals Date Recorded Body height Provider Name an d Address Organization Details Last Updated DateTime 01/14/2021 185.42 cm Radha Combs MA [facility] 021 15:19:44 Date Recorded Systolic And Diastolic Provider Name and Address Organization Details Last Updated DateTime 09/10/2021 130/90 mm[Hg] Reji Macario MD Attn: Accounting,[address] [place], [address], [facility] 09/10/2021 16:47:25 Date Recorded Body height Body mass index (BMI) Body weight Heart rate Oxygen saturation Oxygen saturation in Arterial blood by Pulse oximetry Respiratory rate Body temperature Systolic And Diastolic Provider Name and Address Organization Details Last Updated DateTime 185.42 cm 25.1 kg/m2 83080.9 9 g 106 /min 97 % 97 % 14 /min 97.8 [degF] 146/80 mm[Hg] Radha Combs MA [facility] 1 16:21:49 Social History Question Answer Notes LastModified by Organizat ion Details LastModified Time Tobacco Smoking Status Current Every Day Smoker Maria De Jesus [place], [facility] 10/20/2014 11:15:00 Are You Blind Or Do You Have Difficulty Seeing? No Information not available 12/04/2020 What Is Your Level Of Caffeine Consumption? Occasional Information not available 05/06/2020 How Much Tobacco Do You Chew? None Information not available 05/06/2020 Have You Been To An Area Known To Be High Risk For COVID-19? No Information not available 05/06/2020 Are You Deaf Or Do You Have Serious Difficulty Hearing? No Information not available 12/04/2020 What Type Of Diet Are You Following? REGULAR Information not available 02/01/2019 Are There Any Guns Present In Your Home? No Information not available 02/01/2019 Hard Of Hearing Or Deaf In One Or Both Ears? No Information not available 02/01/2019 Legally Blind In One Or Both Eyes? No Information not available 02/01/2019 What Was The Date Of Your Most Recent Tobacco Screening? 09/10/2021 Information not available 09/10/2021 Performs Monthly Self-breast Exam? No Information not available 05/06/2020 Seat Belts Used Routinely Yes Information not available 02/01/2019 Smoke Alarm In Home Yes Information not available 02/01/2019 Do You Have Smoke And Carbon Monoxide Detectors In Your Home? Yes Information not available 12/04/2020 How Much Tobacco Do You Smoke? 1 PPD [email or web address] Information not available 10/20/2014 Has Tobacco Cessation Counseling Been Provided? Yes [email or web address] Information not available 02/01/2019 On What Date Was Tobacco Cessation Counseling Provided? 09/10/2021 Information not available 09/10/2021 How Many Years Have You Smoked Tobacco? 51 Information not available 02/01/2019 Sex: Unknown Functional Status Question Answer Note LastModified by Organizat ion Details LastModified Time What is your level of alcohol consumption? None Information not available 02/01/2019 Are you currently employed? No Information not available 12/04/2020 Do you or have you ever used e-cigarettes or vape? Never used electronic cigarettes Information not available 05/06/2020 Mental Status None recorded. Family History Relationship Description Onset Age of this Age Resolved Age Notes LastModified by Organization Details LastModified Time Unspecified Relation Diabetes mellitus [email or web address] Not available 2014 11:15:00 Medical History Condition Response Cancer Y Diabetes Y Hepatitis Y Immunizations Vaccine Type Date Status Note Provider Nam e and Address Organization Details Recorded Time pneumococcal polysaccharide PPV23 05/10/201 9 completed Not Available [facility] 10/12/2019 02:50:30 Tdap 1 completed Radha Combs MA [facility] 09/10/2021 17:21:25 Past Encounters Encounter ID Performer Location Encounter Start Date Encounter Closed Date Diagnosis/Indication Diagnosis SNOMED-CT Code Diagnosis ICD10 Code Diagnosis IMO Codes Diagnosis Note [id number] James Siegel MD [facility] [address] [place] [address] 10/20/2014 10:46:25 10/20/2014 11:45:01 Carcinoma of prostate 790600240 Impotence 800606522 [id number] MD Geno Clark (Adult Med) [address] [place] [id number] 02/01/2019 14:28:05 02/04/2019 11:01:37 General examination of patient 002119237 Z00.01 Carcinoma of prostate 25 8833125 C61 Type 2 janell betes mellitus without complication 816251048 E11.9 Nicotine dependence 5629 4008 F17.200 Chronic hepatitis C 1283 40964 B18.2 Nicotine user 789695031 Z87.891 Administra tion of pneumococcal vaccine 83674854 Z23 Screening for malignant neoplasm of colon 930343802 Z12.11 Abscess 360869743 L02.91 Foot callus 761244542 L8 4 Thyroid di sorder screening 864515912 Z13.29 [id number] MD Geno Clark (Adult Med) [address] [place] [id number] 03/27/2019 15:44:02 03/27/2019 16:33:16 Uncontrolled type 2 diabetes mellitus 382977895 E11.65 Continue MetforminS tart AmarylStar t Basaglar 6 units HSStart Pravastati [facility] was very reluctant about SGLT2-Brenda tor blood sugarsEndo crinologis t to see Carcinoma of prostate 25 3807010 C61 Impotence 675678033 N52. 9 Chronic hepatitis C 1283 76623 B18.2 [id number] MD Geno Clark (Adult Med) [address] [place] [id number] 05/06/2020 08:23:27 05/07/2020 12:23:13 Constipation 21778120 K59.00 Possibly related to the Oxycodone, although he is yet to get the colonoscop y done as previously ordered. Disorder o f electrolytes 605563866 E87.8 History of heroin abuse 1406124457 42670 F11.11 Not a candidate for narcotics, he was advised that he needs to be discontinu e this. My impression is that this is for his post op pain. Non-compli ant behavior 497756101 R46.89 Impotence 898651882 N52. 9 Amputated below knee 299 149287 Z89.519 Uncontroll ed type 2 diabetes mellitus 234177709 E11.65 Continue MetforminEstiven chavez was discontinu ed as an inpatientC ontinue Pravastati n Continue Lantus Medication monitoring 39 1063438 Z51.81 Follow-up visit 49182991 9 Z09 Carcinoma of prostate 25 8784472 C61 [id number] MD Geno Clark (Adult Med) [address] [place] [id number] 06/10/2020 08:13:55 06/15/2020 17:50:21 Anemia [id number] D64.9 Multifacto rial Uncontroll ed type 2 diabetes mellitus [id number] E11.65 Continue MetforminEstiven chavez was discontinu ed as an inpatientC margarita Prasiobhan n Increase Basaglar to 8 units, he apparently has been taking 6 units and not 4. Influenza vaccination declined [id number] Z28.21 Impotence [id number] N52. 9 Mixed anxi ety and depressive disorder [id number] F41.8 Screening for malignant neoplasm of colon [id number] Z12.11 [id number] MD Geno Clark (Adult Med) [address] [place] [phone] 08/24/2020 09:47:38 08/25/2020 07:40:01 Needs influenza immunization 259238122 Z28.3 Urinary incontinence 165 628849 R32 Carcinoma of prostate 25 2690893 C61 S/p radiation [id number] MD Geno Clark (Adult Med) [address] [place] [address] 12/04/2020 08:01:08 12/07/2020 11:01:02 Uncontrolled type 2 diabetes mellitus [id number] E11.65 Continue MetforminA kathy was discontinu ed as an inpatientC ontinue Pravastati n Increase Basaglar to 13 units, he apparently has been taking 8 units and on his discharge summary, they recommende d 24 units. Medication monitoring 39 1730576 Z51.81 [id number] MD Geno [facility] (Adult Med) [address] [place] [phone] 09/10/2021 16:06:32 09/10/2021 17:22:57 Uncontrolled type 2 diabetes mellitus [id number] E11.65 He has discontinu ed his Metformin due to GI intoleranc Amira was discontinu ed as an inpatientH e discontinu ed the Pravastati n on his ownHe needs to start Rosuvastat in, side effects were discussedO n his last PV, he was told to increase Basaglar to 13 units, he apparently has been taking 11units as well as 7 units of short acting InsulinLab s as previously orderedCGM to help him monitor his blood sugars Immunization advised 310 557070 Z71.9 Influenza vaccination declined 888390151 Z28.21 Requires a tetanus booster 551127414 Z28.3 History of malignant neoplasm of prostate 647130394 Z85.46 Nicotine dependence 5629 4008 Z87.891 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 [id number] 100 E11.621 Benign ess ential hypertension 0870943 I10 Start Losartan, side effects were discussed Amputated below knee 299 076007 Z89.512 See the message from 05/11/2020 Non-compli ant behavior [id number] R46.89 Urinary incontinence 165 249905 R32 Health Concerns Section Related Observation LastModified by Organization Detai ls LastModified Time None Recorded Concern Status LastModified by Organization Details LastModified Time None Recorded Advance Directives Directive None Recorded Payers Insurance Date Sequence Insurance Name Policy Number Policy Yuan Covered Member ID Yuan Member ID Guarantor Name 09/13/2021 1 [facility] - DOS PRIOR TO 2021 (MEDICAID REPLACEMENT - HMO) David Pires [id number] David Pires 10/03/2021 1 [facility] - DOS ON OR AFTER 21 (MEDICAID REPLACEMENT - HMO) David Pires [id number] David Pires Notes Date Note Type Note Provider Name and Address Organization Details Recorded Time 0 text/html ROS as noted in the HPI Phone visit due to the Covid 19 pandemic I spoke to the patient, and he also handed the phone to his Granddaughter, Nicole and another gentleman. I am just calling in, I need some referralsI had my leg amputatedI went to rehab and the redness, they decided to take me off below the kneeConstipation Mr Pires was last seen in the office on 03/27/2019, in the interim he was in the ER/admitted;04/[place]/2019 [place] [address]/26/2019-10/30/2019 Cellulitis of the toe, Anxiety03/29/2020 Heroin addiction, Diabetic foot infection and he signed out AMA04/01/2020-04/18/2020 OM s/p amputation of the left hallux?-? OM s/p L BKA He needs home health nursing to resume his care and a medication for his constipation as well as a prescription for Pen needles and MgOx. He is also requesting a refill of his Sildenafil. He has an appointment with his Vascular surgeon, Dr Alfredo on 05/16/2020 I do not have the most recent discharge summary, but the one from his 04/18/2020 discharge confirms electrolyte abnormalities (Hyponatremia & Hypomagnesemia), Osteomyelitis of the toe, s/p amputation.It appears that after his discharge to rehab/long term, his OM worsened prompting a readmission to [facility] and a left BKA. Reji Macario MD Attn: Accounting,[address] [facility], [place], [address], [facility] 05/06/2020 13:55:28 0 text/html Diabetes F/UReported by PatientHPIFor review finger sticks, patient reportsfastin (mid 100's). For context, patient reportstaking aspirin daily,not missing doses of medications, andno side effects from medications. For associated symptoms, patient reportsno weight gain,no weight loss,no dizziness,no sweats,no headaches,no confusion,no increased thirst,no increased appetite,no increased urination,no blurred vision,no numbness of feet, andno calluses on feet.ROS as noted in the HPI Phone visit due to the Covid 19 pandemic As good as I can Paul don't take Flu shotsI need home help and I have talked o [facility] and the Dept of AgingMy depression and anxiety is worse Mr Pires is doing well but his MDD/CARLOS are both worse, his space officer has encouraged him to get back in at [facility]. His eyesight is also not the best and he needs refills of his Sildenafil. Reji Macario MD Attn: Accounting, [address] [facility], [place], [address], [facility] 06/10/2020 14:10:19 0 text/html ROS as noted in the HPI Phone visit due to the Covid pandemic I am alrightI got my legs last I go through a pack a weekSince I had the Prostate radiation... Mr Pires has had urinary incontinence since he had radiation for his prostate cancer, he currently uses ~ 5 pull ups a day. Reji Macario MD Attn: Accounting, [address] [facility], [place], [address], [facility] 08/24/2020 13:48:28 1 text/html Diabetes F/UReported by PatientHPIFor context, patient reportshome blood sugar range highbut reportsseeing eye doctor regularlyandchecking feet regularly. For review finger sticks, patient reportspost dinner: 250. For labs, patient reportslast a1c result: 7.3. For associated symptoms, patient reportsno weight gain,no weight loss,no dizziness,no sweats,no headaches,no confusion,no increased thirst,no increased appetite,no increased urination,no blurred vision,no numbness of feet, andno calluses on feet.ROS as noted in the HPI Phone visit due to the Covid 19 pandemic I am alrightA while back I had a urinary tract and it messed up my Diabetes a little bitThey are still high In the interim, Mr Pires was admitted to 10/18/20-10/20/20? with Klebsiella UTI and Uncontrolled DM. Reji Macario MD Attn: Accounting,[address] [facility], [place], [address], [facility] 12/04/2020 18:46:08 1 text/html ROS as noted in the HPI They took my leg, they took the middle toe. Now, I got something going on on the sideReferral to the dentist or something, I am losing my teethI pee myself a lot, I had that Prostate cancerJust about the testing equipment, can I get that? Mr Pires developed an ulcer on the plantar aspect of his right foot about three weeks ago. He would also like a CGM to monitor his blood sugars and adult diapers as he has urinary incontinence ever since he had treatment of his prostate cancer. Reji Macario MD Attn: Accounting,[address] [facility], [place], [address], [facility] 09/10/2021 19:31:05
--- NOTE | 2025-06-30 11:42 | ED_ITS ---
HPI - General Adult General Chief complaint: Recheck/Abnormal Lab/Rx Stated complaint: AMS, hypoglycemic Time Seen by Provider: 06/30/25 07:37 History of Present Illness HPI narrative: Patient is a 69-year-old male who presents ER with low blood sugar. Patient was given his morning insulin and then found unresponsive. Blood sugar was in the 30s. He received oral correction at the facility and also IV dextrose by EMS. Here he is awake and alert at his normal baseline which is x2. Has no complaints of pain. Related Data Home Medications ?Medication ?Instructions ?Recorded ?Confirmed ?Last Taken ?Type metformin 500 mg tablet 500 mg PO BID 03/17/2306/16 Unknown History Allergies Allergy/AdvReac Type Severity Reaction Status Date / Time No Known Allergies Allergy Mild Verified 06/16/25 18:35 Review of Systems 2 Review of Systems: ROS unobtainable: Yes unobtainable due to mental status PMFSH Past Medical History Medical History Insulin dependent diabetes mellitus Hyperlipidemia Hypertension Tobacco dependence Polysubstance abuse Paroxysmal atrial fibrillation Prostate cancer Status post radiation. Gastroesophageal reflux disease Tuberculosis (2014) Diabetic retinopathy Hepatitis C Anxiety Depression Surgical History Surgical History History of right below knee amputation History of appendectomy History of tonsillectomy History of left below knee amputation Family History Family History Father Diabetes mellitus Son Heart disease Mother Heart disease Sibling Cerebral aneurysm Social History Social History Social History: Surrogate medical decision maker: Margarita Vegas, daughter. Code status: Full code. Smoking packs per day: 0.5 Smoking cigarettes per day: 10.0 Years smoked: 54 Smoking pack-years: 27.00 Smoking status: Light tobacco smoker Tobacco type: cigarettes Second hand tobacco smoke exposure: Yes Alcohol intake: never Drinks per week: 14 Substance use: never Substance use type: marijuana and amphetamines Lack of Transportation: YES Lack of Food: Often True Current Housing: I Have Housing Concerned About Future Housing: YES Difficulty Paying Gas/Electric Bills: YES Difficulty Paying for Meds: YES Currently Unemployed: No Education: High School Diploma/GED Difficulty w/ Childcare or Family Care: No Living arrangements: with friend(s) Additional living arrangements comments: Currently staying with a friend. Occupation/Education: retired Additional occupation/education comments: [employer]. Spiritual care concerns: No Agree to blood products: Yes Exam 2 Narrative: GENERAL: Well-appearing, well-nourished, and in no acute distress. HEAD: Normocephalic, atraumatic. ENT: Mucous membranes moist. CHEST: Clear to auscultation. No respiratory distress. HEART: Regular rate and rhythm. Normal peripheral pulses. ABDOMEN: Soft, nontender, nondistended. EXTREMITIES: Normal range of motion. No edema. SKIN: Warm, dry, no rash. NEURO: Alert and oriented x2. PSYCH: Normal mood and affect. Course Course Emergency Course: Patient resting comfortably. He has been eating and drinking. Blood sugars stable. Appropriate for discharge back to his facility. Vital Signs Vital signs: Vital Signs Pulse Rate 92 06/30/25 06:30 Respiratory Rate 25 H 06/30/25 06:30 Blood Pressure 157/108 H 06/30/25 06:30 Pulse Oximetry 89 L 06/30/25 06:30 Oxygen Delivery Room Air 06/30/25 06:30 Temperature 97.6 F 06/30/25 07:45 Pulse Rate 92 06/30/25 11:15 Respiratory Rate 17 06/30/25 11:15 Blood Pressure 159/99 H 06/30/25 11:15 Pulse Oximetry 95 06/30/25 11:15 Oxygen Delivery Nasal Cannula 06/30/25 06:39 Oxygen Flow Rate 2 06/30/25 06:41 Medical Decision Making Vital Signs Vital Signs: Vital Signs Pulse Rate 92 06/30/25 06:30 Respiratory Rate 25 H 06/30/25 06:30 Blood Pressure 157/108 H 06/30/25 06:30 Pulse Oximetry 89 L 06/30/25 06:30 Oxygen Delivery Room Air 06/30/25 06:30 Temperature 97.6 F 06/30/25 07:45 Pulse Rate 92 06/30/25 11:15 Respiratory Rate 17 06/30/25 11:15 Blood Pressure 159/99 H 06/30/25 11:15 Pulse Oximetry 95 06/30/25 11:15 Oxygen Delivery Nasal Cannula 06/30/25 06:39 Oxygen Flow Rate 2 06/30/25 06:41 Lab Data 06/30/25 07:44 06/30/25 07:44 Labs: Lab Results 06/30/25 06/30/25 06/30/25 Range/Units 06:38 07:44 08:08 WBC 7.5 (4.5-10.0) K/mm3 RBC 4.36 L (4.6-6.20) M/mm3 Hgb 11.8 L (14.0-18.0) g/dL Hct 38.7 L (42.0-52.0) % MCV 88.8 (80-100) fl MCH 27.1 (26-34) pg MCHC 30.5 L (32-36) g/dl RDW 15.3 H (11.5-14.5) % Plt Count 167 (150-375) k/mm3 MPV 11.1 H (7.4-10.4) fl Immature Gran % (Auto) 0.7 H (0-0.5) % Neut % (Auto) 88.7 H (45.5-73.1) % Lymph % (Auto) 5.3 L (18.3-44.2) % [place] % (Auto) 4.9 (2.6-8.5) % Eos % (Auto) 0.0 (0-4.4) % Baso % (Auto) 0.4 (0.2-1.2) % Lymph # (Auto) 0.40 L (0.9-3.2) K/mm3 [place] # (Auto) 0.4 (0.1-0.6) K/mm3 Eos # (Auto) 0.0 (0-0.3) K/mm3 Baso # (Auto) 0.0 (0.0-0.1) K/mm3 Abs Immat Gran (auto) 0.05 H (0.00-0.031) K/mm3 Absolute Neuts (auto) 6.6 (1.3-6.7) K/mm3 Absolute Nucleated RBC 0.000 (0.0-0.012) K/mm3 Nucleated RBC % 0.0 (0.0-0.2) % PT 15.3 H (11.1-14.7) Seconds INR 1.2 APTT 33.4 (22.3-36.8) Seconds Sodium 140 (137-145) mmol/L Potassium 4.5 (3.4-5.0) mmol/L Chloride 100 (98-107) mmol/L Carbon Dioxide 35 H (22-30) mmol/L Anion Gap 5 (4-12) mmol/L BUN 45 H (9-20) mg/dL Creatinine 1.43 H (0.7-1.3) mg/dL Estim Creat Clear Calc 47 ml/min Estimated GFR 49 L (59 - ) Glucose 130 H (65-110) mg/dL POC Capillary Glucose 154 H (65-105) mg/dl Calcium 8.9 (8.4-10.2) mg/dL Total Bilirubin 0.3 (0.2-1.3) mg/dL AST 59 (17-59) U/L ALT 40 (6-50) U/L Alkaline Phosphatase 103 (38-126) U/L Total Protein 6.9 (6.3-8.2) g/dL Albumin 3.3 L (3.5-5.1) g/dL Urine Color Yellow (Yellow) Urine Appearance Clear (Clear) Urine pH 7.0 (5.0-9.0) Ur Specific [place] 1.016 (1.001-1.035) Urine Protein 3+ H (Negative) mg/dL Urine Glucose (UA) Negative (Negative) mg/dL Urine Ketones Negative (Negative) mg/dL Ur Blood (Man) Negative (Negative) Urine Nitrate Negative (Negative) Urine Bilirubin Negative (Negative) Urine Urobilinogen 1.0 (<2.0) mg/dL Leukocyte Esterase Rfl Negative (Negative) LEONARDO/UL Urine RBC 0-2 (0-2) /hpf Urine WBC 0-5 (0-3) /hpf Ur Squamous Epith Cells None seen (Few) /hpf Urine Bacteria None seen /hpf Urine Casts 0-2 06/30/25 06/30/25 06/30/25 Range/Units 10:03 10:32 11:26 WBC (4.5-10.0) K/mm3 RBC (4.6-6.20) M/mm3 Hgb (14.0-18.0) g/dL Hct (42.0-52.0) % MCV (80-100) fl MCH (26-34) pg MCHC (32-36) g/dl RDW (11.5-14.5) % Plt Count (150-375) k/mm3 MPV (7.4-10.4) fl Immature Gran % (Auto) (0-0.5) % Neut % (Auto) (45.5-73.1) % Lymph % (Auto) (18.3-44.2) % [place] % (Auto) (2.6-8.5) % Eos % (Auto) (0-4.4) % Baso % (Auto) (0.2-1.2) % Lymph # (Auto) (0.9-3.2) K/mm3 [place] # (Auto) (0.1-0.6) K/mm3 Eos # (Auto) (0-0.3) K/mm3 Baso # (Auto) (0.0-0.1) K/mm3 Abs Immat Gran (auto) (0.00-0.031) K/mm3 Absolute Neuts (auto) (1.3-6.7) K/mm3 Absolute Nucleated RBC (0.0-0.012) K/mm3 Nucleated RBC % (0.0-0.2) % PT (11.1-14.7) Seconds INR APTT (22.3-36.8) Seconds Sodium (137-145) mmol/L Potassium (3.4-5.0) mmol/L Chloride (98-107) mmol/L Carbon Dioxide (22-30) mmol/L Anion Gap (4-12) mmol/L BUN (9-20) mg/dL Creatinine (0.7-1.3) mg/dL Estim Creat Clear Calc ml/min Estimated GFR (59 - ) Glucose (65-110) mg/dL POC Capillary Glucose 61 L 89 109 H (65-105) mg/dl Calcium (8.4-10.2) mg/dL Total Bilirubin (0.2-1.3) mg/dL AST (17-59) U/L ALT (6-50) U/L Alkaline Phosphatase (38-126) U/L Total Protein (6.3-8.2) g/dL Albumin (3.5-5.1) g/dL Urine Color (Yellow) Urine Appearance (Clear) Urine pH (5.0-9.0) Ur Specific [place] (1.001-1.035) Urine Protein (Negative) mg/dL Urine Glucose (UA) (Negative) mg/dL Urine Ketones (Negative) mg/dL Ur Blood (Man) (Negative) Urine Nitrate (Negative) Urine Bilirubin (Negative) Urine Urobilinogen (<2.0) mg/dL Leukocyte Esterase Rfl (Negative) LEONARDO/UL Urine RBC (0-2) /hpf Urine WBC (0-3) /hpf Ur Squamous Epith Cells (Few) /hpf Urine Bacteria /hpf Urine Casts ECG Data EKG #1: ECG completion date: 06/30/25 ECG completion time: 07:41 EKG Interpretation: normal rate (87), sinus rhythm, no ectopy, non- specific ST changes, normal QRS, normal QT and NL axis Discharge Plan Discharge Clinical Impression: Hypoglycemia Patient Disposition: Home Condition: Stable Instructions: Hypoglycemia in a Person with Diabetes (ED) Additional Instructions: Return the ER if he continue have issues with low blood sugars, you develop fever over 100.4? F, or you have additional concerns. Patient Language: Croatian Prescriptions: No Action metformin 500 mg tablet 500 mg PO BID sertraline [Zoloft] 50 mg Tablet 25 mg PO QAM Qty: 30 0RF insulin glargine [Lantus Solostar U-100 Insulin] 100 unit/mL (3 mL) insulin pen 15 unit subcut HS Qty: 15 0RF insulin lispro 100 unit/mL insulin pen 4 unit subcut AC Qty: 15 0RF Rx Instructions: Before meals, hold for a glucose <150 amlodipine [Norvasc] 5 mg Tablet 5 mg PO DAILY 30 Days Qty: 30 0RF Eliquis 5 mg Tablet 5 mg PO Q12HR 30 Days Qty: 60 0RF furosemide 40 mg Tablet 40 mg PO DAILY 30 Days Qty: 30 0RF umeclidinium-vilanterol [Anoro Ellipta] 62.5-25 mcg/actuation Blister With Device 1 inh inhalation DAILYRT 30 Days Qty: 1 2RF Follow-up/Referrals: UNKNOWN,DOCTOR [Primary Care Provider] - 1 Week
== END 2025-06-30 14:40 | disposition home or self-care (01) ==
PROVIDERS: Emergency Provider Emergency Medicine
DX: E11.649 Type 2 diabetes mellitus with hypoglycemia without coma (principal); I10 Essential (primary) hypertension; I48.0 Paroxysmal atrial fibrillation; E78.5 Hyperlipidemia, unspecified; E11.319 Type 2 diabetes mellitus with unspecified diabetic retinopathy without macular edema; K21.9 Gastro-esophageal reflux disease without esophagitis; F41.9 Anxiety disorder, unspecified; F32.A Depression, unspecified; F17.210 Nicotine dependence, cigarettes, uncomplicated; Z85.038 Personal history of other malignant neoplasm of large intestine; Z86.19 Personal history of other infectious and parasitic diseases; Z89.511 Acquired absence of right leg below knee; Z89.512 Acquired absence of left leg below knee; R94.31 Abnormal electrocardiogram [ECG] [EKG]; Z79.4 Long term (current) use of insulin; Z79.84 Long term (current) use of oral hypoglycemic drugs; Z79.01 Long term (current) use of anticoagulants; Z79.899 Other long term (current) drug therapy
CPT/HCPCS: 36415; 80053; 81001; 82948; 85025; 85610; 85730; 93005; 99284

== ENCOUNTER 2025-08-14 16:54 | Inpatient (IN) | payer MEDICARE, MEDICAID, SELFPAY ==
[2025-08-14] VITALS (21 sets, daily range): BP systolic 132–160; BP diastolic 56–99; PULSE 89–94; RESP 13–20; TEMP 36.6; O2SAT 96–100
--- NOTE | ~2025-08-14 | XR_ITS ---
MODIFIED ESOPHAGRAM HISTORY: Referred from bedside swallow evaluation TECHNIQUE: Modified barium esophagram was performed on 08/18/2025. I administered fluoroscopy and performed the exam with speech pathologist. Patient was seated for lateral fluoroscopic imaging for ingestion of thin liquids, pudding, solids and quantified amounts, followed by thin liquids in uncontrolled amounts. This was recorded on tape. A single fluoroscopic spot image was also recorded. The DAP for this procedure was 0.883 Gycm2. The amount of fluoroscopy time used during this procedure was 1.6 minutes. FINDINGS: Oral stage: Adequate function. Pharyngeal stage: Adequate function. Cervical/esophageal stage: Adequate function. IMPRESSION: Patient tolerated regular consistency oral feedings in the upright position. Please correlate with speech pathologist findings and specific feeding recommendations. Reviewed, dictated and finalized at location A. ER ASSEMBLER IMPRESSION: Patient tolerated regular consistency oral feedings in the upright position. Please correlate with speech pathologist findings and specific feedi ng recommendations.
--- NOTE | ~2025-08-14 | CT_ITS ---
EXAMINATION:CT diagnostic chest wo con DATE: 08/14/2025 20:51 INDICATION: History of heart failure. Possible pneumonia TECHNIQUE: Computed tomography (CT) of the chest was performed without intravenous contrast. Automated exposure control and iterative reconstruction technique were employed. The dose-length product (DLP) was 218.36 mGy-cm. COMPARISON: Chest x-ray dated 08/14/2025. FINDINGS: Evidence of large right pleural effusion. Moderate size left pleural effusion. No pulmonary consolidation. Cardiomegaly with severe multivessel coronary artery calcifications. No pericardial effusion. Severe degenerative disc disease at multiple thoracic disc levels. IMPRESSION: 1. Cardiomegaly with severe multivessel coronary artery calcifications. 2. Large right pleural effusion and moderate left pleural effusion due to congestive heart failure. 3. No evidence of pulmonary consolidation or atelectasis, except for compression atelectasis of right lower lobe due to the pleural effusion. Reviewed, dictated and finalized at location T. CTOR OF SUPPLY CHAIN IMPRESSION: 1. Cardiomegaly with severe multivessel coronary artery calcifications. 2. Large right pleural effusion and moderate left pleural effusion due to conge stive heart failure. 3. No evidence of pulmonary consolidation or atelectasis, except for compressio n atelectasis of right lower lobe due to the pleural effusion.
--- NOTE | ~2025-08-14 | XR_ITS ---
EXAMINATION: XR chest 1V portable DATE: 08/14/2025 17:40 INDICATION: Shortness of breath. TECHNIQUE: A single frontal view of the chest was obtained. COMPARISON: Chest x-ray dated 06/07/2025. FINDINGS: Cardiomegaly and atherosclerotic aorta. Congestion of the lung bases with small to moderate bilateral pleural effusions right more than the left. Airspace opacity of the perihilar region of the lungs especially on the right side. IMPRESSION: 1. Cardiomegaly, bilateral pleural effusion and congestion of the lungs with possible pulmonary edema in the perihilar region on both sides. Findings suggestive of congestive heart failure. Reviewed, dictated and finalized at location T. CULTURAL APPRAISER IMPRESSION: 1. Cardiomegaly, bilateral pleural effusion and congestion of the lungs with po ssible pulmonary edema in the perihilar region on both sides. Findings suggesti ve of congestive heart failure.
--- NOTE | ~2025-08-14 | US_ITS ---
EXAMINATION: US thoracentesis DATE: 08/15/2025 14:55 INDICATION: Right pleural effusion TECHNIQUE: The procedure and its risks and benefits were discussed with the patient. Potential risks discussed included bleeding, infection, and pneumothorax. The patient understood the risks and agreed to proceed. The skin was prepped and draped in sterile fashion. 1% lidocaine was used for local anes thesia. Under ultrasound guidance, a 5 Fr catheter with trochar was advanced into the right pleural effusion. Fluid was aspirated. The catheter was removed, and a dressing was applied. There were no immediate complications. FINDINGS: Ultrasound images demonstrate a moderate-sized right pleural effusion and the catheter within the fluid. IMPRESSION: 1. Successful ultrasound-guided thoracentesis yielding 1100 mL of clear straw- colored fluid. Reviewed, dictated and finalized at location A. UCTION INSPECTOR
--- NOTE | ~2025-08-14 | XR_ITS ---
EXAMINATION: AP portable chest: DATE: 08/15/2025 INDICATION: Postthoracentesis, right side with ultrasound guidance TECHNIQUE: Portable AP upright chest were obtained. COMPARISON: CT dated 08/14/2025. FINDINGS: Cardiomegaly is noted again. Patchy airspace opacities of lower lung garcia on both sides suggesting possible pulmonary edema. Reduction in the amount of pleural effusion on the right side compared with prior CT. No evidence of pneumothorax. IMPRESSION: 1. No evidence of pneumothorax on the right side. Reduction in the amount of pleural effusion compared with CT scan. 2. Cardiomegaly. Patchy airspace opacity in the lower lung garcia, suspicious of pulmonary edema. Reviewed, dictated and finalized at location T. CAL INSURANCE VERIFIER IMPRESSION: 1. No evidence of pneumothorax on the right side. Reduction in the amount of pl eural effusion compared with CT scan. 2. Cardiomegaly. Patchy airspace opacity in the lower lung garcia, suspicious o f pulmonary edema.
--- NOTE | ~2025-08-14 | CT_ITS ---
CT HEAD NON-CONTRAST Clinical History: AMS Comparison: CT head 06/16/2025 Technique: Unenhanced axial images skull base to vertex Coronal, sagittal reformats CT images acquired with automatic exposure control for dose reduction DLP: 681 mGy-cm Findings: Chronic white matter microvascular ischemic changes. Small chronic infarct right centrum semiovale, posterior left temporal lobe, right cerebellum. Sulci, ventricles: Unremarkable. No intracerebral hemorrhage. No evidence acute territorial infarct. No mass effect, midline shift. Bony calvarium intact. Visualized paranasal sinuses: Clear. Mastoid air cells: Fluid left side. IMPRESSION: 1. No acute intracranial findings. Reviewed, dictated and finalized at location R. E WEIGHER
--- NOTE | 2025-08-14 17:14 | ECG_ITS ---
Test Date: 2025-08-14 19:19:59 Measurements Intervals [place] Rate: 90 P: 59 DC: 149 QRS: 31 QRSD: 88 T: 133 QT: 354 QTc: 435 Interpretive Statements SINUS RHYTHM ST DEVIATION AND MODERATE T-WAVE ABNORMALITY, CONSIDER LATERAL ISCHEMIA [-0.1+ mV T-WAVE IN I/aVL/V5/V6] ABNORMAL ECG No previous ECG available for comparison Electronically Signed On 08-15-2025 07:53:24 [employer]ANDSCAPE ARTIST by Gerard Mabry M.D.
[2025-08-14 17:59] LABS: Hematocrit 35.8 % (42.0-52.0); Hemoglobin 10.7 g/dL (14.0-18.0); Immature Granulocyte Percent A 0.5 % (0-0.5); Lymphocytes Absolute Auto 0.53 K/mm3 (0.9-3.2); Mean Corpuscular HGB Conc 29.9 g/dl (32-36); Mean Corpuscular Hemoglobin 26.3 pg (26-34); Mean Corpuscular Volume 88.0 fl (80-100); Nucleated Red Blood Cells Absolute Auto 0.000 K/mm3 (0.0-0.012); Nucleated Red Blood Cells Perc 0.0 % (0.0-0.2); Platelet Count Result 167 k/mm3 (150-375); Red Blood Count 4.07 M/mm3 (4.6-6.20); White Blood Count 4.3 K/mm3 (4.5-10.0)
[2025-08-14 18:10] LABS: INR 1.1; Prothrombin Time 14.0 Seconds (11.1-14.7)
[2025-08-14 18:11] LABS: Partial Thromboplastin Time 30.6 Seconds (22.3-36.8)
[2025-08-14 18:16] LABS: Hypochromasia 1+; Schistocytes None Seen
[2025-08-14 18:20] LABS: Alanine Aminotransferase 25 U/L (6-50); Albumin Level 4.0 g/dL (3.5-5.1); Alkaline Phosphatase 144 U/L (38-126); Anion Gap 9 mmol/L (4-12); Aspartate Amino Transferase 31 U/L (17-59); Bilirubin,Total 0.4 mg/dL (0.2-1.3); Blood Urea Nitrogen 56 mg/dL (9-20); Calcium 8.9 mg/dL (8.4-10.2); Carbon Dioxide 25 mmol/L (22-30); Chloride 106 mmol/L (98-107); Estimated CRCL calculation 43 ml/min; Estimated Glomerular Filt Rate 44; Glucose 150 mg/dL (65-110); Potassium 5.1 mmol/L (3.4-5.0); Sodium 140 mmol/L (137-145); Total Protein 8.1 g/dL (6.3-8.2)
[2025-08-14 18:27] LABS: NT Pro B Type Natriuretic Pept 21300 pg/mL (19.9-100); Troponin I 0.014 ng/mL (0.000-0.034)
[2025-08-14 18:33] LABS: Add Urine Microscopic? YES; Appearance Urine Cloudy (Clear); Glucose Urine UA Negative (Negative); Leukocyte Esterase Ur Negative LEU/UL (Negative); Need Manual Microscopic Reviewed; Nitrate Urine Negative (Negative); Specific Grav Ur 1.020 (1.001-1.035)
--- NOTE | 2025-08-14 21:39 | ED.GENADULT ---
HPI - General Adult General Chief complaint: Shortness of Breath/Dyspnea Stated complaint: increased SOB x days Time Seen by Provider: 08/14/25 19:38 History of Present Illness HPI narrative: 69-year-old male with history of CHF and bilateral BKA. Family states patient has been more fatigued and confused lately. Patient is ill-appearing at time of evaluation. Patient states he prefers to be discharged home but daughter states she does not feel he can be cared for at home in this state. Patient is normally on 3 L of oxygen by nasal cannula. Related Data Home Medications ?Medication ?Instructions ?Recorded ?Confirmed ?Last Taken ?Type metformin 500 mg tablet 500 mg PO BID 03/17/23 07/22/25 Unknown History amlodipine 5 mg tablet 5 mg PO DAILY 08/15/25 08/15/25 Unknown History apixaban 5 mg tablet (Eliquis) 5 mg PO Q12H 08/15/25 08/15/25 Unknown History furosemide 40 mg tablet (Lasix) 40 mg PO DAILY 08/15/25 08/15/25 Unknown History insulin glargine 100 unit/mL (3 15 unit subcut HS 08/15/25 08/15/25 Unknown History mL) subcutaneous pen (Basaglar KwikPen U-100 Insulin) insulin lispro 100 unit/mL 4 unit subcut TIDWM 08/15/25 08/15/25 Unknown History subcutaneous pen metformin 500 mg tablet 500 mg PO BID 08/15/25 08/15/25 Unknown History sertraline 25 mg tablet 25 mg PO DAILY 08/15/25 08/15/25 Unknown History umeclidinium 62.5 mcg-vilanterol 1 inh inhalation DAILY 08/15/25 08/15/25 Unknown History 25 mcg/actuation powdr for inhalation (Anoro Ellipta) Allergies Allergy/AdvReac Type Severity Reaction Status Date / Time No Known Allergies Allergy Verified 08/15/25 08:59 Review of Systems Review of Systems: All systems reviewed & are unremarkable except as noted in HPI and below PMFSH Past Medical History Medical History (Updated 08/17/25 @ 08:12 by Mesfin Whitley MD) Tobacco dependence Polysubstance abuse Paroxysmal atrial fibrillation Prostate cancer Status post radiation. Gastroesophageal reflux disease Tuberculosis (2014) Hyperlipidemia Hypertension Insulin dependent diabetes mellitus Diabetic retinopathy Hepatitis C Anxiety Depression Hypertension COPD (chronic obstructive pulmonary disease) Below knee amputation Bilateral Congestive heart failure Diabetic acidosis, type II Surgical History Surgical History History of right below knee amputation History of appendectomy History of tonsillectomy History of left below knee amputation Family History Family History Mother Congestive heart failure Father Diabetes mellitus Son Myocardial infarction Son Diabetes mellitus Sibling Myocardial infarction Father Diabetes mellitus Son Heart disease Mother Heart disease Sibling Cerebral aneurysm Social History Social History Social History: The patient stated that he has 3 children. He lives with his daughter. He is retired. Code status: Full code Smoking packs per day: 1 Smoking cigarettes per day: 20.0 Years smoked: 59 Smoking pack-years: 59.00 Smoking status: Current every day smoker Tobacco type: cigarettes Second hand tobacco smoke exposure: Yes Alcohol intake: never Drinks per week: 14 Substance use: never Lack of Transportation: YES Lack of Food: Often True Current Housing: I Have Housing Concerned About Future Housing: YES Difficulty Paying Gas/Electric Bills: YES Difficulty Paying for Meds: YES Currently Unemployed: No Education: High School Diploma/GED Difficulty w/ Childcare or Family Care: No Living arrangements: with friend(s) Occupation/Education: retired Spiritual care concerns: No Agree to blood products: Yes Exam Narrative: APPEARANCE: Ill-appearing HEAD: normocephalic, atraumatic. EYES: PERRLA/EOMI, conjunctivae clear. NOSE: Normal no drainage EARS:TMS clear with good light reflex. THROAT: Pharynx clear, no exudate. NECK: Supple. No adenopathy, no masses. RESPIRATORY: Congestive block sounds bilaterally CARDIOVASCULAR: Regular rate and rhythm without murmurs rubs or gallops. ABDOMINAL: Soft, nontender, nondistended, normal bowel sounds MUSCULOSKELETAL: Bilateral BKA with pitting bilateral stumps NEURO: Alert. Cranial nerves II through XII intact. SKIN: Warm, dry. Normal Color Course Vital Signs Vital signs: Vital Signs Temperature 97.9 F 08/14/25 16:56 Pulse Rate 90 08/14/25 16:56 Respiratory Rate 19 08/14/25 16:56 Blood Pressure 151/89 H 08/14/25 16:56 Pulse Oximetry 97 08/14/25 16:56 Oxygen Delivery Nasal Cannula 08/14/25 16:56 Oxygen Flow Rate 3 08/14/25 16:56 Temperature 97.5 F L 08/17/25 08:00 Pulse Rate 87 08/17/25 08:00 Respiratory Rate 22 H 08/17/25 08:00 Blood Pressure 157/76 H 08/17/25 08:00 Pulse Oximetry 93 08/17/25 08:00 Oxygen Delivery High Flow Nasal Cannula 08/17/25 07:57 Oxygen Flow Rate 5 08/17/25 07:57 Medical Decision Making MDM Narrative Medical decision making narrative: 69-year-old male present to the emergency department for evaluation for worsening fatigue. Patient is currently afebrile with no leukocytosis hemoglobin of 10.7. Patient has an INR 1.1. Patient's ABG does show hypercapnia and hypoxia. Patient was placed on BiPAP. Patient does have a hyperkalemia 5.1 but patient was treated with IV Lasix. Patient's creatinine is 1.59 with no known baseline. Patient's proBNP is elevated 21,000. UA was negative for infection. Chest x-ray does show pulmonary edema. Chest CT was ordered to evaluate for underlying pneumonia and does confirm pulmonary edema. Case was discussed with the hospitalist, patient will be admitted to the IMU. Patient was agreeable with plan for admission. At time of sign-out CT head is pending. Differential Diagnosis Differential Diagnosis: Pneumonia, CHF, hypercapnia, UTI, COVID, RSV, influenza Vital Signs Vital Signs: Vital Signs Temperature 97.9 F 08/14/25 16:56 Pulse Rate 90 08/14/25 16:56 Respiratory Rate 19 08/14/25 16:56 Blood Pressure 151/89 H 08/14/25 16:56 Pulse Oximetry 97 08/14/25 16:56 Oxygen Delivery Nasal Cannula 08/14/25 16:56 Oxygen Flow Rate 3 08/14/25 16:56 Temperature 97.5 F L 08/17/25 08:00 Pulse Rate 87 08/17/25 08:00 Respiratory Rate 22 H 08/17/25 08:00 Blood Pressure 157/76 H 08/17/25 08:00 Pulse Oximetry 93 08/17/25 08:00 Oxygen Delivery High Flow Nasal Cannula 08/17/25 07:57 Oxygen Flow Rate 5 08/17/25 07:57 Lab Data 08/17/25 03:52 08/17/25 03:52 Labs: Lab Results 08/14/25 08/14/25 08/14/25 Range/Units 17:48 18:15 22:02 WBC 4.3 L (4.5-10.0) K/mm3 RBC 4.07 L (4.6-6.20) M/mm3 Hgb 10.7 L (14.0-18.0) g/dL Hct 35.8 L (42.0-52.0) % MCV 88.0 (80-100) fl MCH 26.3 (26-34) pg MCHC 29.9 L (32-36) g/dl RDW 16.2 H (11.5-14.5) % Plt Count 167 (150-375) k/mm3 MPV 10.4 (7.4-10.4) fl Immature Gran % (Auto) 0.5 (0-0.5) % Neut % (Auto) 81.3 H (45.5-73.1) % Lymph % (Auto) 12.3 L (18.3-44.2) % Bennett % (Auto) 4.9 (2.6-8.5) % Eos % (Auto) 0.5 (0-4.4) % Baso % (Auto) 0.5 (0.2-1.2) % Lymph # (Auto) 0.53 L (0.9-3.2) K/mm3 Bennett # (Auto) 0.2 (0.1-0.6) K/mm3 Eos # (Auto) 0.0 (0-0.3) K/mm3 Baso # (Auto) 0.0 (0.0-0.1) K/mm3 Abs Immat Gran (auto) 0.02 (0.00-0.031) K/mm3 Absolute Neuts (auto) 3.5 (1.3-6.7) K/mm3 Absolute Nucleated RBC 0.000 (0.0-0.012) K/mm3 Band Neutrophils % Not Reportable Nucleated RBC % 0.0 (0.0-0.2) % Platelet Estimate Adequate (Adequate) Hypochromasia 1+ Schistocytes None seen PT 14.0 (11.1-14.7) Seconds INR 1.1 APTT 30.6 (22.3-36.8) Seconds Methemoglobin 0.3 (0-1.5) %THb Sodium 140 (137-145) mmol/L Potassium 5.1 H (3.4-5.0) mmol/L Chloride 106 (98-107) mmol/L Carbon Dioxide 25 (22-30) mmol/L Anion Gap 9 (4-12) mmol/L BUN 56 H (9-20) mg/dL Creatinine 1.59 H (0.7-1.3) mg/dL Estim Creat Clear Calc 43 ml/min Estimated GFR 44 L (59 - ) Glucose 150 H (65-110) mg/dL POC Capillary Glucose (65-105) mg/dl Hemoglobin A1c 7.0 H (<5.7) % Calcium 8.9 (8.4-10.2) mg/dL Phosphorus (2.5-4.5) mg/dL Magnesium (1.6-2.3) mg/dL Total Bilirubin 0.4 (0.2-1.3) mg/dL AST 31 (17-59) U/L ALT 25 (6-50) U/L Alkaline Phosphatase 144 H (38-126) U/L Troponin I 0.014 (0.000-0.034) ng/mL NT-Pro-B Natriuret Pep 18232 H (19.9-100) pg/mL Total Protein 8.1 (6.3-8.2) g/dL Albumin 4.0 (3.5-5.1) g/dL Vitamin B12 (239-931) pg/mL Vitamin D 25-Hydroxy ng/mL Folate (2.76->20) ng/mL TSH (Reflex) (0.465-4.68) uIU/mL Urine Color Yellow (Yellow) Urine Appearance Cloudy H (Clear) Urine pH 5.0 (5.0-9.0) Ur Specific [place] 1.020 (1.001-1.035) Urine Protein 3+ H (Negative) mg/dL Urine Glucose (UA) Negative (Negative) mg/dL Urine Ketones Negative (Negative) mg/dL Ur Blood (Man) Trace (Negative) Urine Nitrate Negative (Negative) Urine Bilirubin Negative (Negative) Urine Urobilinogen 1.0 (<2.0) mg/dL Add Ur Microanalysis Reviewed Leukocyte Esterase Rfl Negative (Negative) LEONARDO/UL Urine RBC 0-2 (0-2) /hpf Urine WBC 0-5 (0-3) /hpf Ur Squamous Epith Cells None seen (Few) /hpf Urine Bacteria None seen /hpf Urine Casts -08/15/25 08/15/25 08/15/25 Range/Units 07:12 08:15 11:15 WBC 4.3 L (4.5-10.0) K/mm3 RBC 3.41 L (4.6-6.20) M/mm3 Hgb 9.1 L (14.0-18.0) g/dL Hct 30.0 L (42.0-52.0) % MCV 88.0 (80-100) fl MCH 26.7 (26-34) pg MCHC 30.3 L (32-36) g/dl RDW 16.1 H (11.5-14.5) % Plt Count 148 L (150-375) k/mm3 MPV 10.5 H (7.4-10.4) fl Immature Gran % (Auto) 0.5 (0-0.5) % Neut % (Auto) 74.8 H (45.5-73.1) % Lymph % (Auto) 15.7 L (18.3-44.2) % Bennett % (Auto) 7.1 (2.6-8.5) % Eos % (Auto) 1.4 (0-4.4) % Baso % (Auto) 0.5 (0.2-1.2) % Lymph # (Auto) 0.68 L (0.9-3.2) K/mm3 Bennett # (Auto) 0.3 (0.1-0.6) K/mm3 Eos # (Auto) 0.1 (0-0.3) K/mm3 Baso # (Auto) 0.0 (0.0-0.1) K/mm3 Abs Immat Gran (auto) 0.02 (0.00-0.031) K/mm3 Absolute Neuts (auto) 3.3 (1.3-6.7) K/mm3 Absolute Nucleated RBC 0.000 (0.0-0.012) K/mm3 Band Neutrophils % Nucleated RBC % 0.0 (0.0-0.2) % Platelet Estimate (Adequate) Hypochromasia Schistocytes PT (11.1-14.7) Seconds INR APTT (22.3-36.8) Seconds Methemoglobin (0-1.5) %THb Sodium 138 (137-145) mmol/L Potassium 4.8 (3.4-5.0) mmol/L Chloride 108 H (98-107) mmol/L Carbon Dioxide 24 (22-30) mmol/L Anion Gap 6 (4-12) mmol/L BUN 57 H (9-20) mg/dL Creatinine 1.52 H (0.7-1.3) mg/dL Estim Creat Clear Calc 43 ml/min Estimated GFR 46 L (59 - ) Glucose 137 H (65-110) mg/dL POC Capillary Glucose 110 H 138 H (65-105) mg/dl Hemoglobin A1c (<5.7) % Calcium 8.9 (8.4-10.2) mg/dL Phosphorus 4.7 H (2.5-4.5) mg/dL Magnesium 1.7 (1.6-2.3) mg/dL Total Bilirubin 0.4 (0.2-1.3) mg/dL AST 30 (17-59) U/L ALT 23 (6-50) U/L Alkaline Phosphatase 139 H (38-126) U/L Troponin I (0.000-0.034) ng/mL NT-Pro-B Natriuret Pep (19.9-100) pg/mL Total Protein 6.5 (6.3-8.2) g/dL Albumin 3.1 L (3.5-5.1) g/dL Vitamin B12 643.0 (239-931) pg/mL Vitamin D 25-Hydroxy < 12.8 ng/mL Folate 5.0 (2.76->20) ng/mL TSH (Reflex) 1.590 (0.465-4.68) uIU/mL Urine Color (Yellow) Urine Appearance (Clear) Urine pH (5.0-9.0) Ur Specific [place] (1.001-1.035) Urine Protein (Negative) mg/dL Urine Glucose (UA) (Negative) mg/dL Urine Ketones (Negative) mg/dL Ur Blood (Man) (Negative) Urine Nitrate (Negative) Urine Bilirubin (Negative) Urine Urobilinogen (<2.0) mg/dL Add Ur Microanalysis Leukocyte Esterase Rfl (Negative) LEONARDO/UL Urine RBC (0-2) /hpf Urine WBC (0-3) /hpf Ur Squamous Epith Cells (Few) /hpf Urine Bacteria /hpf Urine Casts ABG Data ABG results: 08/14/25 22:02 Puncture Site Left radial ABG pH 7.286 L* ABG pCO2 48.6 H ABG pO2 55.0 L ABG PO2/FiO2 Ratio 2.29 ABG HCO3 22.6 ABG O2 Saturation 84.7 L* ABG O2 Content 12.1 L ABG Base Excess -4.0 A-a Gradient 58.3 Oxyhemoglobin 84.9 L* Carboxyhemoglobin 1.7 Reduced Hemoglobin 13.1 H Total Hemoglobin 10.1 L O2 Delivery Device Nasal cannula O2 Liters/Min 1.0 FiO2 24 Discharge Plan Discharge Clinical Impression: CHF (congestive heart failure), Adult failure to thrive, Pleural effusion Patient Disposition: Still a Patient Condition: Serious
--- NOTE | 2025-08-14 21:52 | PCRCNOTE ---
ABG delayed due to patient being at CT.
[2025-08-14] MEDS: FUROSEMIDE INJ 40 MG/4 ML VIAL IV PUSH (21:56)
[2025-08-14 22:20] LABS: Alveolar/Arterial O2 Gradient 58.3 mmHg; Carboxyhemoglobin 1.7 % THb (0-2.0); Fractional Inspired Oxygen 24 %; HCO3 ABG 22.6 mEq/l (22.0-26.0); Methemoglobin ABG 0.3 %THb (0-1.5); Oxygen Content ABG 12.1 %vol (16.0-22.0); PCO2 ABG 48.6 mmHg (35.0-45.0); PO2 ABG 55.0 mmHg (80.0-100.0); PO2 FiO2 Ratio Arterial Blood 2.29 %; Reduced Hemoglobin 13.1 %THb (0-5.0)
[2025-08-14 22:36] LABS: Liters per Minute 1.0 LPM; Modified Allen's Test Pass; Oxygen Saturation ABG 84.7 % (95.0-100.0); Site Drawn LEFT RADIAL
--- NOTE | 2025-08-14 23:16 | PC.NURSE ---
Report to breanna LOGAN
--- NOTE | 2025-08-14 23:23 | PC.NURSE ---
Report received from Missy LOGAN
[2025-08-15] VITALS (27 sets, daily range): BP systolic 146–156; BP diastolic 72–96; PULSE 83–91; RESP 14–22; TEMP 36.4–36.8; O2SAT 91–98; BMI 21.2
--- NOTE | 2025-08-15 | ECHO_ITS ---
Patient Info Name: David Pires Age: 69 years : 1955 Gender: Male Ht: 71 in Wt: 161 lbs BSA: 1.91 m2 HR: 87 bpm BP: 150 / 81 mmHg Technical Quality: Good Exam Date: 08/15/2025 8:57 AM Patient Status: I Admit Date: 08/14/2025 Exam Type: CA echo doppler color flow Complete two-dimensional, color flow and Doppler transthoracic echocardiogram is performed. Staff Referring Physician: Mariel Garnica NP High Speed Warper Tender: Denis Eudardo III Attending Provider: Blair Zuluaga MD Summary 1. Complete two-dimensional, color flow and Doppler transthoracic echocardiogram is performed. 2. Left ventricular chamber dimension is moderately enlarged. 3. Left ventricular systolic function is moderately globally reduced, estimated at 40-45. 4. There is mild concentric increased left ventricular wall thickness. 5. The left ventricular diastolic function is grade III diastolic dysfunction. 6. E/e' 22 is elevated. 7. Left atrial chamber dimension is moderately enlarged. 8. There is moderate aortic valve sclerosis. 9. The mitral valve has a mildly calcified annulus. 10. There is mild to moderate mitral valve regurgitation. 11. There is trace tricuspid valve regurgitation. 12. There is small circumferential pericardial effusion. 13. Pleural effusion noted. Left Ventricle E/e' 22 is elevated. Left ventricular chamber dimension is moderately enlarged. Left ventricular systolic function is moderately globally reduced, estimated at 40-45. There is mild concentric increased left ventricular wall thickness. The left ventricular diastolic function is grade III diastolic dysfunction. Right Ventricle Right ventricular chamber dimension is not well visualized. Right ventricular systolic function is normal based on normal TAPSE 2.2 cm. Left Atria Left atrial chamber dimension is moderately enlarged. Right Atria Right atrial chamber dimension is normal. Aortic Valve The aortic valve is trileaflet. There is moderate aortic valve sclerosis. There is no aortic valve stenosis. There is no aortic valve regurgitation. Pulmonic Valve There is no pulmonic regurgitation. Mitral Valve The mitral valve has a mildly calcified annulus. There is no mitral valve stenosis. There is mild to moderate mitral valve regurgitation. Tricuspid Valve There is trace tricuspid valve regurgitation. RVSP is not measured due to an inadequate TR jet. Pericardium/Pleural There is small circumferential pericardial effusion. No cardiac tamponade. Pleural effusion noted. Inferior Vena Cava Normal inferior vena cava with >50% collapse upon inspiration consistent with normal right atrial pressure, 5 mmHg. Aorta The aortic root size at the sinus of Valsalva is normal. Left Ventricular Outflow Tract Name Value Normal LVOT 2D LVOT Diameter 2.3 cm LVOT Doppler LVOT Peak Velocity 74 cm/s LVOT Peak Gradient 2 mmHg LVOT Mean Gradient 1 mmHg LVOT VTI 13 cm LVOT VTI/AV VTI Ratio 0.7 LVOT Stroke Volume 56 ml Pulmonic Valve Name Value Normal PV Doppler PV Peak Velocity 82 cm/s PV Peak Gradient 3 mmHg PV Mean Gradient 1 mmHg Mitral Valve Name Value Normal MV Doppler MV Peak Gradient 7 mmHg MV Mean Gradient 3 mmHg MV Area (Cont Eq VTI) 2.3 cm2 MV Regurgitation Doppler MR Peak Gradient 42 mmHg MV Diastolic Function MV E Peak Velocity 133 cm/s MV A Peak Velocity 64 cm/s MV E/A 2.1 MV Decel Time (PW) 168 ms MV Annular TDI MV E/e' (Septal) 31.0 MV E/e' (Lateral) 18.3 MV E/e' (Average) 24.6 Tricuspid Valve Name Value Normal Estimated PAP/RSVP RA Pressure 5 mmHg <=5 TV Annular TDI TV Lateral Nancy s' Velocity 11.4 cm/s >=9.5 Aortic Valve Name Value Normal AV Doppler AV Peak Velocity 124 cm/s AV Peak Gradient 6 mmHg AV Mean Gradient 3 mmHg AV VTI 20 cm AV Area (Cont Eq VTI) 2.8 cm2 >=3.0 AV Area (Cont Eq Jaron) 2.5 cm2 AV DI (Jaron) 0.60 AV Regurgitation 2D LVOT Area 4.2 cm2 Ventricles Name Value Normal LV Dimensions 2D/MM IVS Diastolic Thickness (2D) 1.2 cm 0.6-1.0 LVID Diastole (2D) 4.7 cm 4.2-5.8 LVIW Diastolic Thickness (2D) 1.3 cm 0.6-1.0 LVID Systole (2D) 3.8 cm 2.5-4.0 LVOT Diameter 2.3 cm LV Mass (2D Cubed) 235.45 g 88.00-224.00 LV Mass Index (2D Cubed) 123 g/m2 49-115 Relative Wall Thickness (2D) 0.57 <=0.42 LV Fractional Shortening/Ejection Fraction 2D/MM LV Fractional Shortening (2D) 20 % 25-43 LV EF (2D Teichholz) 41 % LV Diastolic Volume (4C MOD) 152 ml LV EF (4C MOD) 34 % LV Diastolic Volume (2C MOD) 170 ml LV EF (2C MOD) 25 % LV Diastolic Volume (BP MOD) 161 ml 62-150 LV Diastolic Volume Index (BP MOD) 84 ml/m2 34-74 LV Systolic Volume (BP MOD) 112 ml 21-61 LV Systolic Volume Index (BP MOD) 59 ml/m2 11-31 LV EF (BP MOD) 30 % 52-72 LV Diastolic Length (4C) 9.2 cm LV Systolic Length (4C) 8.6 cm LV Stroke Volume (4C MOD) 52 ml Atria Name Value Normal LA Dimensions LA Volume (4C A-L) 77 ml LA Volume (BP A-L) 81 ml RA Dimensions RA Systolic Major [place] Length (4C) 5.8 cm 2.1-2.7 RA Area (4C) 18.9 cm2 <=18.0 Report Signatures
--- NOTE | 2025-08-15 00:50 | WPCEDHO ---
ED Hand Off Checklist All vitals saved:Y IV Site documented:Y All med administrations documented:Y Triage Note Triage Note Patient here from home by Chau 08/14/25 17:34 EMS with increasing Shortness of breath, weakness. Is on home O2 at 3L-patient is a smoker and has no plans to stop. Alleged sepsis history back in May with Pneumonia family told EMS 1720--update by family--patient has been more confused and not acting right-she reported last time he was like this he also had a UTI---patient does have a strong urine smell Family also reported that patient fell 2 days ago and was complaining of left stump pain. Family reports when they tried to reposition him they felt a pop in his left side Administered/Completed Medications Discontinued Medications Furosemide (Furosemide Inj 40 Mg/4 Ml Vial) 40 mg IV PUSH ONCE STA Stop: 08/14/25 21:40 Last Admin: 08/14/25 21:56 Dose: 40 mg Documented By: TLB Notes 08/14/25 23:23 Nurse Note by Asia Brown Report received from Missy LOGAN Initialized on 08/14/25 23:23 - END OF NOTE 08/14/25 23:16 Nurse Note by Missy Snider Report to asia LOGAN Initialized on 08/14/25 23:16 - END OF NOTE 08/14/25 21:52 Respiratory Therapy Note by Diego Kaufman ABG delayed due to patient being at CT. Initialized on 08/14/25 21:52 - END OF NOTE Interventions/Assessments Cardiac Monitoring Start: 08/14/25 16:55 Freq: Status: Active Protocol: Document 08/14/25 17:10 TLB (Rec: 08/14/25 17:10 TLB [id number]) Chief Gauger Assessment Chief Gauger Yes Applied Pulse Rate (60-100) 94 EKG Rythm Sinus Rhythm IV / Saline Lock, Insert Start: 08/14/25 16:55 Freq: Status: Active Protocol: Document 08/14/25 17:32 TLB (Rec: 08/14/25 17:33 TLB [id number]) IV Assessment Peripheral Access Right Distal Forearm IV Catheter Access Initiated IV Insertion Date 08/14/25 IV Insertion Time 17:30 Catheter Gauge 18 IV Insertion 1 Attempts IV Site Assessment WNL IV Care and Access Locked Maintenance PA: Cardiovascular Assessment Start: 08/14/25 16:55 Freq: Status: Active Protocol: Document 08/14/25 17:10 TLB (Rec: 08/14/25 17:13 TLB [id number]) Cardiovascular Assessment Cardiovascular Dyspnea Symptoms Skin Description Normal Color Jugular Vein None Distention PA: Integumentary Assessment Start: 08/14/25 18:23 Freq: Status: Active Protocol: Document 08/14/25 18:23 TLB (Rec: 08/14/25 18:25 TLB [id number]) Closed Skin Problem Scrotum Color Red Description Tender Distribution Diffuse Exudate Amount Scant Exudate Color Clear Additional Closed Perianal area also reddened Skin Problem Comment PA: Respiratory Assessment Start: 08/14/25 16:55 Freq: Status: Active Protocol: Document 08/14/25 17:10 TLB (Rec: 08/14/25 17:13 TLB [id number]) Respiratory Assessment Symptoms Shortness of Breath at Rest,Shortness of Breath With Exertion Effort Short of Breath Chest Expansion Symmetrical Posterior Right Bases Lung Sounds Diminished Cough Description None Additional Patient reports that he smokes 1 pack cigarettes per Respiratory Comments day Oxygen Delivery Oxygen Delivery Nasal Cannula Oxygen Flow Rate 3 Pulse Oximetry (90- 97 100) Last Vital Signs Temperature 97.9 F 08/14/25 16:56 Pulse Rate 88 08/15/25 00:45 Respiratory Rate 17 08/15/25 00:45 Pulse Oximetry 92 08/15/25 00:06 Blood Pressure 149/88 H 08/15/25 00:16 Blood Pressure Mean 106 08/15/25 00:16 Oxygen Delivery Nasal Cannula 08/14/25 23:26 Oxygen Flow Rate 3 08/14/25 17:15 Weight 76.2 kg 08/14/25 17:34 Last Result - Abnormals Only WBC 4.3 K/mm3 (4.5-10.0) L 08/14/25 17:48 RBC 4.07 M/mm3 (4.6-6.20) L 08/14/25 17:48 Hgb 10.7 g/dL (14.0-18.0) L 08/14/25 17:48 Hct 35.8 % (42.0-52.0) L 08/14/25 17:48 MCHC 29.9 g/dl (32-36) L 08/14/25 17:48 RDW 16.2 % (11.5-14.5) H 08/14/25 17:48 Neut % (Auto) 81.3 % (45.5-73.1) H 08/14/25 17:48 Lymph % (Auto) 12.3 % (18.3-44.2) L 08/14/25 17:48 Lymph # (Auto) 0.53 K/mm3 (0.9-3.2) L 08/14/25 17:48 ABG pH 7.286 (7.350-7.450) L* 08/14/25 22:02 ABG pCO2 48.6 mmHg (35.0-45.0) H 08/14/25 22:02 ABG pO2 55.0 mmHg (80.0-100.0) L 08/14/25 22:02 ABG O2 Saturation 84.7 % (95.0-100.0) L* 08/14/25 22:02 ABG O2 Content 12.1 %vol (16.0-22.0) L 08/14/25 22:02 Oxyhemoglobin 84.9 % THb (90.0-100.0) L* 08/14/25 22:02 Reduced Hemoglobin 13.1 %THb (0-5.0) H 08/14/25 22:02 Total Hemoglobin 10.1 g/dL (12.0-18.0) L 08/14/25 22:02 Potassium 5.1 mmol/L (3.4-5.0) H 08/14/25 17:48 BUN 56 mg/dL (9-20) H 08/14/25 17:48 Creatinine 1.59 mg/dL (0.7-1.3) H 08/14/25 17:48 Estimated GFR 44 (59-) L 08/14/25 17:48 Glucose 150 mg/dL (65-110) H 08/14/25 17:48 Alkaline Phosphatase 144 U/L (38-126) H 08/14/25 17:48 NT-Pro-B Natriuret Pep 28258 pg/mL (19.9-100) H 08/14/25 17:48 Urine Appearance Cloudy (Clear) H 08/14/25 18:15 Urine Protein 3+ mg/dL (Negative) H 08/14/25 18:15 Most Recent Suicide Severity Rating Suicide Severity Rating NO RISK INDICATED 08/14/25 17:34
--- NOTE | 2025-08-15 01:59 | ADMGEN ---
This patient, David Pires, was admitted to IMU Room 203-01. Patient/family oriented to hospital policies and general routines including ID bracelet, bed and alarms, visiting hours, pain management, procedures, bathroom and other care routines, personal items, smoking policy, room service/diet, and visiting hours. Information on how to activate the Rapid Response Team has been discussed. Patient/Family are encouraged to report perceived risks to care and to ask questions if they do not understand what they are told or what they should do.
--- NOTE | 2025-08-15 05:48 | PC.NURSE ---
This RN offered BiPAP to patient many times, pt refusing to wear BiPAP.
--- NOTE | 2025-08-15 06:26 | PM.IMHP ---
H&P: HPI History of Present Illness Date/Time: 08/15/25 06:26 Chief Complaint: Shortness breath and dyspnea Narrative: This is 69-year-old male patient who is very hard of hearing and is a poor historian. The patient has a history of bilateral BKA and congestive heart failure. Patient has been more fatigued and confused lately. As per ed ,the daughter stated that she is not able to take care of him at this time. The patient is normally on oxygen at 3 L per nasal cannula. His white count was low at 4.2. H&H is 10.7 and 35.8. I have no previous labs for comparison. His pH was 7.286, CO2 was 48.6, PO2 was 55, O2 saturation 84.7. The patient was placed on a BiPAP and the patient refused. However after I talked to the patient again he stated he would wear it. Chest CT was read as a followingMPRESSION: 1. Cardiomegaly with severe multivessel coronary artery calcifications. 2. Large right pleural effusion and moderate left pleural effusion due to congestive heart failure. 3. No evidence of pulmonary consolidation or atelectasis, except for compression atelectasis of right lower lobe due to the pleural effusion. Chest x-ray was read as. Cardiomegaly, bilateral pleural effusion and congestion of the lungs with possible pulmonary edema in the perihilar region on both sides. Findings suggestive of congestive heart failure. Head CT was taken. Preliminary was read as no acute intracranial abnormality. The patient is being admitted to observation status on the date of service of 04/14/2025 Review of Systems Review of Systems: The patient was having difficulty talking in full sentences. ROS unobtainable: Yes unobtainable due to medical condition [facility] Past Medical History Medical History (Updated 08/16/25 @ 00:28 by Mariel Garnica APRN) Tobacco dependence Polysubstance abuse Paroxysmal atrial fibrillation Prostate cancer Status post radiation. Gastroesophageal reflux disease Tuberculosis (2015) Hyperlipidemia Hypertension Insulin dependent diabetes mellitus Diabetic retinopathy Hepatitis C Anxiety Depression Hypertension COPD (chronic obstructive pulmonary disease) Below knee amputation Bilateral Congestive heart failure Diabetic acidosis, type II Surgical History Surgical History History of right below knee amputation History of appendectomy History of tonsillectomy History of left below knee amputation Family History Family History Mother Congestive heart failure Father Diabetes mellitus Son Myocardial infarction Son Diabetes mellitus Sibling Myocardial infarction Father Diabetes mellitus Son Heart disease Mother Heart disease Sibling Cerebral aneurysm Social History Social History Social History: The patient stated that he has 3 children. He lives with his daughter. He is retired. Code status: Full code Smoking packs per day: 1 Smoking cigarettes per day: 20.0 Years smoked: 59 Smoking pack-years: 59.00 Smoking status: Current every day smoker Tobacco type: cigarettes Second hand tobacco smoke exposure: Yes Alcohol intake: never Drinks per week: 14 Substance use: never Lack of Transportation: YES Lack of Food: Often True Current Housing: I Have Housing Concerned About Future Housing: YES Difficulty Paying Gas/Electric Bills: YES Difficulty Paying for Meds: YES Currently Unemployed: No Education: High School Diploma/GED Difficulty w/ Childcare or Family Care: No Living arrangements: with friend(s) Occupation/Education: retired Spiritual care concerns: No Agree to blood products: Yes Comments The patient is a poor historian it was difficult to get information from the patient Meds Home Medications and Allergies Home Medications ?Medication ?Instructions ?Recorded ?Confirmed ?Type metformin 500 mg tablet 500 mg PO BID 03/17/23 07/22/25 History insulin glargine 100 unit/mL (3 15 unit (0.15 mL) subcut HS #15 mL 03/24/23 07/22/25 Rx mL) subcutaneous pen (Lantus Solostar U-100 Insulin) insulin lispro 100 unit/mL 4 unit (0.04 mL) subcut AC #15 mL 03/24/23 07/22/25 Rx subcutaneous pen sertraline 50 mg tablet (Zoloft) 25 mg (1/2 x 50 mg) PO QAM #30 tabs 03/24/23 07/22/25 Rx amlodipine 5 mg tablet (Norvasc) 5 mg PO DAILY 30 days #30 tabs 06/26/25 07/22/25 Rx apixaban 5 mg tablet (Eliquis) 5 mg PO Q12HR 30 days #60 tabs 06/26/25 07/22/25 Rx furosemide 40 mg tablet 40 mg PO DAILY 30 days #30 tabs 06/26/25 07/22/25 Rx umeclidinium 62.5 mcg-vilanterol 1 inh inhalation DAILYRT 30 days 06/26/25 07/22/25 Rx 25 mcg/actuation powdr for #1 ea inhalation (Anoro Ellipta) amlodipine 5 mg tablet 5 mg PO DAILY 08/15/25 08/15/25 History apixaban 5 mg tablet (Eliquis) 5 mg PO Q12H 08/15/25 08/15/25 History furosemide 40 mg tablet (Lasix) 40 mg PO DAILY 08/15/25 08/15/25 History insulin glargine 100 unit/mL (3 15 unit subcut HS 08/15/25 08/15/25 History mL) subcutaneous pen (Basaglar KwikPen U-100 Insulin) insulin lispro 100 unit/mL 4 unit subcut TIDWM 08/15/25 08/15/25 History subcutaneous pen metformin 500 mg tablet 500 mg PO BID 08/15/25 08/15/25 History sertraline 25 mg tablet 25 mg PO DAILY 08/15/25 08/15/25 History umeclidinium 62.5 mcg-vilanterol 1 inh inhalation DAILY 08/15/25 08/15/25 History 25 mcg/actuation powdr for inhalation (Anoro Ellipta) Allergies Allergy/AdvReac Type Severity Reaction Status Date / Time No Known Allergies Allergy Verified 08/15/25 08:59 Vital Signs Vital Signs - 24 hr 08/14/25 16:56 08/14/25 17:10 08/14/25 17:10 Temperature 97.9 F Pulse Rate 90 94 Respiratory Rate 19 Blood Pressure 151/89 H Pulse Oximetry 97 97 Oxygen Delivery Nasal Cannula Nasal Cannula Oxygen Flow Rate 3 3 08/14/25 17:15 08/14/25 18:00 08/14/25 18:30 Temperature Pulse Rate 92 90 Respiratory Rate 17 20 Blood Pressure 152/87 H 135/56 L Pulse Oximetry 97 96 99 Oxygen Delivery Nasal Cannula Oxygen Flow Rate 3 08/14/25 19:00 08/14/25 19:31 08/14/25 20:16 Temperature Pulse Rate 92 91 92 Respiratory Rate 15 13 16 Blood Pressure 150/86 H 160/95 H 145/99 H Pulse Oximetry 98 Oxygen Delivery Oxygen Flow Rate 08/14/25 20:41 08/14/25 20:55 08/14/25 21:00 Temperature Pulse Rate 92 91 Respiratory Rate 18 18 Blood Pressure 143/79 H 154/92 H Pulse Oximetry 98 100 Oxygen Delivery Oxygen Flow Rate 08/14/25 21:01 08/14/25 21:30 08/14/25 21:46 Temperature Pulse Rate 91 91 93 Respiratory Rate 15 17 14 Blood Pressure 154/90 H 149/86 H Pulse Oximetry 96 100 99 Oxygen Delivery Oxygen Flow Rate 08/14/25 22:30 08/14/25 22:30 08/14/25 22:40 Temperature Pulse Rate 91 90 90 Respiratory Rate 18 15 16 Blood Pressure 152/95 H Pulse Oximetry 96 96 98 Oxygen Delivery BiPAP Oxygen Flow Rate 08/14/25 22:45 08/14/25 22:47 08/14/25 23:00 Temperature Pulse Rate 89 89 89 Respiratory Rate 18 16 17 Blood Pressure 132/76 Pulse Oximetry 97 97 98 Oxygen Delivery Oxygen Flow Rate 08/14/25 23:26 08/14/25 23:30 08/14/25 23:50 Temperature Pulse Rate 91 90 Respiratory Rate 15 15 Blood Pressure Pulse Oximetry 99 Oxygen Delivery Nasal Cannula Oxygen Flow Rate 08/15/25 00:01 08/15/25 00:06 08/15/25 00:15 Temperature Pulse Rate 90 91 90 Respiratory Rate 19 16 14 Blood Pressure 153/96 H Pulse Oximetry 92 Oxygen Delivery Oxygen Flow Rate 08/15/25 00:16 08/15/25 00:30 08/15/25 00:45 Temperature Pulse Rate 90 87 88 Respiratory Rate 17 14 17 Blood Pressure 149/88 H Pulse Oximetry Oxygen Delivery Oxygen Flow Rate 08/15/25 01:00 08/15/25 01:01 08/15/25 01:35 Temperature 97.8 F Pulse Rate 90 90 90 Respiratory Rate 17 17 18 Blood Pressure 150/92 H 151/85 H Pulse Oximetry 91 Oxygen Delivery Oxygen Flow Rate 08/15/25 02:00 08/15/25 03:48 08/15/25 03:57 Temperature 98.2 F Pulse Rate 89 87 Respiratory Rate 18 Blood Pressure 150/81 H Pulse Oximetry 98 93 Oxygen Delivery Nasal Cannula Oxygen Flow Rate 3 08/15/25 04:00 08/15/25 06:00 Temperature Pulse Rate 88 87 Respiratory Rate Blood Pressure Pulse Oximetry Oxygen Delivery Oxygen Flow Rate Exam Const: General: cooperative, no acute distress, well developed, awake, Physically active, average body habitus and well nourished Nutritional Appearance: average body habitus and well nourished Orientation/consciousness: oriented to person HENMT: Head: normal to inspection, No palpable skull fracture present, normocephalic, atraumatic and abrasion Ears: hearing grossly normal bilaterally Eyes: General: appearance normal, both eyes and all related structures Alignment and Position: alignment normal Periorbital: periorbital findings normal Eyelids: eyelids normal Neck: Neck: normal visual inspection and full ROM Chest: Chest palpation & inspection: normal inspection of the chest Resp: Effort & Inspection: normal respiratory effort Cardio: Palpation: normal PMI Rate: regular rate Rhythm: regular rhythm Heart sounds: S1 normal heart sound present and S2 normal heart sound present GI: Inspection: normal to inspection Percussion: Yes normal to percussion Auscultation: normal bowel sounds Rectal Exam: deferred : General: Yes no CVA tenderness Skin: General skin exam: normal color Lesions: no lesions Rashes: no rashes Trauma: no lacerations or abrasions Neuro: General: oriented to person Extrem: General: normal to inspection Right upper extremity: normal to inspection and shoulder/upper arm Left upper extremity: normal to inspection and shoulder/upper arm Other: Bilateral [id number] amputation Psych: Appearance: grossly normal Mental Status: mental status grossly normal Affect: normal affect H&P: Results Labs Labs: Short CBC 08/14/25 Range/Units 17:48 WBC 4.3 L (4.5-10.0) K/mm3 Hgb 10.7 L (14.0-18.0) g/dL Hct 35.8 L (42.0-52.0) % Plt Count 167 (150-375) k/mm3 BMP 08/14/25 17:48 Sodium 140 Potassium 5.1 H Chloride 106 Carbon Dioxide 25 BUN 56 H Creatinine 1.59 H Glucose 150 H Calcium 8.9 Cardiac Enzymes 08/14/25 Range/Units 17:48 Troponin I 0.014 (0.000-0.034) ng/mL Liver Function 08/14/25 Range/Units 17:48 Total Bilirubin 0.4 (0.2-1.3) mg/dL AST 31 (17-59) U/L ALT 25 (6-50) U/L Alkaline Phosphatase 144 H (38-126) U/L Albumin 4.0 (3.5-5.1) g/dL Urine 08/14/25 Range/Units 18:15 Urine Color Yellow (Yellow) Urine Appearance Cloudy H (Clear) Urine pH 5.0 (5.0-9.0) Ur Specific [place] 1.020 (1.001-1.035) Urine Protein 3+ H (Negative) mg/dL Urine Glucose (UA) Negative (Negative) mg/dL ECG Interpretation: SINUS RHYTHM ST DEVIATION AND MODERATE T-WAVE ABNORMALITY, CONSIDER LATERAL ISCHEMIA [-0.1+ mV T-WAVE IN I/aVL/V5/V6] No previous ECG available for comparison Imaging CT scan - head: Radiologist's impression: Impressions Chest X-Ray 08/14/25 17:41 IMPRESSION: 1. Cardiomegaly, bilateral pleural effusion and congestion of the lungs with possible pulmonary edema in the perihilar region on both sides. Findings suggestive of congestive heart failure. Chest CT 08/14/25 21:02 IMPRESSION: 1. Cardiomegaly with severe multivessel coronary artery calcifications. 2. Large right pleural effusion and moderate left pleural effusion due to congestive heart failure. 3. No evidence of pulmonary consolidation or atelectasis, except for compression atelectasis of right lower lobe due to the pleural effusion. Head CT 08/15/25 06:33 IMPRESSION: 1. No acute intracranial findings. Assessment and Plan Assessment and plan (1) Congestive heart failure: Code(s): I50.9 - Heart failure, unspecified Status: Acute Assessment and Plan: -an echo has been ordered. -continue IV Lasix. -patient has a large pleural effusion I did order for a thoracentesis. -however the patient is currently on Eliquis for unknown reasons. The Eliquis was placed on hold for possible thoracentesis. -the patient has been ordered a BiPAP. It was reported that he refused earlier. I explained to him about his ABGs and he stated that he would allow the placement of the bipap. However when staff attempted to place the BiPAP the patient again refused. He also refused repeat ABGs. He cussed at the respiratory clinician when she attempted to draw the ABGs. -ABG on admission 7.286/49/55 on 1L. Normally wears 3L O2 chronically. (2) Diabetic acidosis, type II: Code(s): E11.10 - Type 2 diabetes mellitus with ketoacidosis without coma Status: Acute Assessment and Plan: -check A1c. -hold metformin. -Pharmacy to titrate his long-acting insulin to 20% of his home dose. --Accu-Cheks AC and HS. (3) COPD (chronic obstructive pulmonary disease): Code(s): J44.9 - Chronic obstructive pulmonary disease, unspecified Status: Acute Assessment and Plan: -continue with home inhalers. (4) Hypertension: Code(s): I10 - Essential (primary) hypertension Status: Acute Assessment and Plan: -continue with amlodipine if blood pressure allows. -current blood pressure 150/81. (5) Atrial fibrillation: Code(s): I48.91 - Unspecified atrial fibrillation Status: Acute Assessment and Plan: -the patient is currently in sinus rhythm. -his paroxysmal atrial fibrillation. The patient is not on any rate lowering agents. Patient is on telemetry. Continue to monitor on telemetry. The patient has been on Eliquis but is on hold for a thoracentesis pain (6) DVT (deep venous thrombosis): Code(s): I82.409 - Acute embolism and thrombosis of unspecified deep veins of unspecified lower extremity Status: Acute Assessment and Plan: -the patient has Eliquis 2 ordered but is currently on hold for thoracentesis. (7) CKD (chronic kidney disease): Code(s): N18.9 - Chronic kidney disease, unspecified Status: Acute Assessment and Plan: -Baseline Cr around 1.4-1.8 range. Cr here 1.5 and stable on Lasix. COntinue to monitor. Quality VTE Prophylaxis VTE prophylaxis: pharmacologic ordered (When able to go back on Eliquis.)
--- NOTE | 2025-08-15 07:28 | PCRCNOTE ---
Addendum entered by Jaye Pete, [employer] 08/15/25 07:43: Provider aware. Original Note: Attempted one time to draw 0730 ABG, patient refused any other attempts. RN aware.
[2025-08-15] MEDS: UMECLIDINIUM/VILANTEROL 62.5-25 MCG ELLIPTA 1 PUFF INHALATION (07:40)
[2025-08-15 08:22] LABS: Hematocrit 30.0 % (42.0-52.0); Hemoglobin 9.1 g/dL (14.0-18.0); Immature Granulocyte Percent A 0.5 % (0-0.5); Lymphocytes Absolute Auto 0.68 K/mm3 (0.9-3.2); Mean Corpuscular HGB Conc 30.3 g/dl (32-36); Mean Corpuscular Hemoglobin 26.7 pg (26-34); Mean Corpuscular Volume 88.0 fl (80-100); Nucleated Red Blood Cells Absolute Auto 0.000 K/mm3 (0.0-0.012); Nucleated Red Blood Cells Perc 0.0 % (0.0-0.2); Platelet Count Result 148 k/mm3 (150-375); Red Blood Count 3.41 M/mm3 (4.6-6.20); White Blood Count 4.3 K/mm3 (4.5-10.0)
[2025-08-15 08:42] LABS: Alanine Aminotransferase 23 U/L (6-50); Albumin Level 3.1 g/dL (3.5-5.1); Alkaline Phosphatase 139 U/L (38-126); Anion Gap 6 mmol/L (4-12); Aspartate Amino Transferase 30 U/L (17-59); Bilirubin,Total 0.4 mg/dL (0.2-1.3); Blood Urea Nitrogen 57 mg/dL (9-20); Calcium 8.9 mg/dL (8.4-10.2); Carbon Dioxide 24 mmol/L (22-30); Chloride 108 mmol/L (98-107); Estimated CRCL calculation 43 ml/min; Estimated Glomerular Filt Rate 46; Glucose 137 mg/dL (65-110); Magnesium 1.7 mg/dL (1.6-2.3); Potassium 4.8 mmol/L (3.4-5.0); Sodium 138 mmol/L (137-145); Total Protein 6.5 g/dL (6.3-8.2)
[2025-08-15] MEDS: FUROSEMIDE INJ 40 MG/4 ML VIAL IV PUSH ×2 (09:09→21:41)
[2025-08-15] MEDS: SERTRALINE HCL 25 MG TABLET PO (09:09)
[2025-08-15 09:12] LABS: Thyroid Stimulating Hormone Reflex 1.590 uIU/mL (0.465-4.68)
[2025-08-15 09:16] LABS: Hemoglobin A1C 7.0 % (<5.7)
[2025-08-15 09:53] LABS: Vitamin B12 643.0 pg/mL (239-931)
--- NOTE | 2025-08-15 14:20 | CY_PTH ---
PATIENT: David Pires LOC: [id number] U#:[id number] AGE/SX: 69/M ROOM: 341 RE08/15/[address]: Ervin Marcum MD : [id number] BED: 01 DIS: 08/22/2025 SPEC #: [id number] RECD: 08/18/25 08:43 STATUS: SHAMA REQ #: [id number] SVETLANA: 08/15/25 14:[address]: Mariel Garnica DEPT: [facility] Cytology RECD BY: Maricarmen Olsen ENTERED: 08/18/25 08:44 SP TYPE: Cytology OTHR DR: MD Jeff Roger MD Todd R. Mitchell, MD Tissues: A - Pleural Fluid Procedures: Hematoxylin and Eosin Stain Cell Block Cytopathology Cytospin
[2025-08-15 16:10] LABS: Appearance Pleural Fluid Clear (Clear); Color Pleural Fluid Yellow (Colorless); Nucleated Cell Pleural Fluid 152 /uL (0-1000)
[2025-08-15 16:11] LABS: Lymphocytes Pleural Fluid 33 %; Macrophages Pleural Fluid 11 %; Monocytes Pleural Fluid 48 %; Neutrophils Pleural Fluid 8 % (0-25)
--- NOTE | 2025-08-15 16:22 | PM.IMPN ---
Progress Note: A&P Assessment and Plan (1) Congestive heart failure: Code(s): I50.9 - Heart failure, unspecified Status: Acute Assessment and Plan: Patient presents with SOB. BNP 21K. CXR showing cardiomegaly, bilateral pleural effusion and congestion of the lungs with possible pulmonary edema CT Chest showing cardiomegaly with severe multivessel coronary artery calcifications, R>L pleural effusions but no pulm consolidation or atelectasis, except for compression atelectasis of RLL due to the pleural effusion. Started on IV Lasix. Echo showing EF 40-45% with G3DD, mild concentric LVH, mild-moderate MR and small pericardial effusion. Renal function stable. Continue IV Lasix today. Cardiology consult Monitor urine output, daily weights and I/Os. (2) Acute on chronic respiratory failure with hypoxia and hypercapnia: Code(s): J96.21 - Acute and chronic respiratory failure with hypoxia; J96.22 - Acute and chronic respiratory failure with hypercapnia Status: Acute Assessment and Plan: ABG on admission 7.286/49/55 on 1L. Normally wears 3L O2 chronically. BiPAP started last night but now refusing this. Repeat ABG (3) COPD (chronic obstructive pulmonary disease): Code(s): J44.9 - Chronic obstructive pulmonary disease, unspecified Status: Acute Assessment and Plan: No wheezing. Stable on his 3L. Continue with home inhalers. (4) Pleural effusion: Code(s): J90 - Pleural effusion, not elsewhere classified Status: Acute Assessment and Plan: Patient with bilateral R>L pleural effusions. [place] related to CHF Thoracentesis this morning with removal of 1100mL of straw colored urine. Studies sent. pH normal. <2000 RBC and 152 WBC with normal differential. Plan home with diuretics. (5) Altered mental status: Code(s): R41.82 - Altered mental status, unspecified Status: Acute Assessment and Plan: Patient confused today. Not clear on his baseline mental function. No focal weakness. B12, folate and TSH normal. Vit D low so will replace Repeat ABG (6) Paroxysmal atrial fibrillation: Code(s): I48.0 - Paroxysmal atrial fibrillation Status: Chronic Assessment and Plan: Patient with pAFib on Eliquis. ALso has hx of DVT. Not on rate lowering agents. Monitor on tele (7) Diabetic acidosis, type II: Code(s): E11.10 - Type 2 diabetes mellitus with ketoacidosis without coma Status: Acute Assessment and Plan: A1c 7.0%. The patient's blood glucose was reviewed on 08/15 Glucose remains well controlled. Lantus resumed at lower dose. Continue AccuCheks covering with sliding scale. Hypoglycemia protocol available as needed. Continue to monitor (8) Hypertension: Code(s): I10 - Essential (primary) hypertension Status: Acute Assessment and Plan: Patient's blood pressure was reviewed on 08/15 Blood pressure remains mildly elevated Will continue to monitor for now (9) CKD (chronic kidney disease): Code(s): N18.9 - Chronic kidney disease, unspecified Status: Acute Assessment and Plan: Baseline Cr around 1.4-1.8 range. Cr here 1.5 and stable on Lasix. COntinue to monitor. Plan Code status - full DVT prophylaxis - Subjective Date/time seen: 08/15/25 16:22 Interval history: 69yo male with CHF, COPD, HTN, Chronic resp failure on 3L, DM and bilateral BKAs here for shortness of breath. Patient refusing BiPAP now. No problems overnight. No nausea or vomiting. No chest pain or shortness of breath. Patient is awake, alert but confused. Exam Narrative: AF 97.6 148/72 86 22 96% 3L Gen - NARD Chest -decreased breath sounds left greater than right bases. CV - RRR S1/S2. Telemetry showing no significant dysrhythmias Abd - Soft, NT/ND, Positive BS Ext -bilateral BKA. Neuro - Alert but confused. Appears slow to respond. Follows commands. No focal weakness. Psych -normal mood. Skin - Warm and dry. Small dried around eschar right BKA site. Objective Data Vital Signs Vital Signs: Vital Signs - 24 hr 08/14/25 16:56 08/14/25 17:10 08/14/25 17:10 Temperature 97.9 F Pulse Rate 90 94 Respiratory Rate 19 Blood Pressure 151/89 H Pulse Oximetry 97 97 Oxygen Delivery Nasal Cannula Nasal Cannula Oxygen Flow Rate 3 3 08/14/25 17:15 08/14/25 18:00 08/14/25 18:30 Temperature Pulse Rate 92 90 Respiratory Rate 17 20 Blood Pressure 152/87 H 135/56 L Pulse Oximetry 97 96 99 Oxygen Delivery Nasal Cannula Oxygen Flow Rate 3 08/14/25 19:00 08/14/25 19:31 08/14/25 20:16 Temperature Pulse Rate 92 91 92 Respiratory Rate 15 13 16 Blood Pressure 150/86 H 160/95 H 145/99 H Pulse Oximetry 98 Oxygen Delivery Oxygen Flow Rate 08/14/25 20:41 08/14/25 20:55 08/14/25 21:00 Temperature Pulse Rate 92 91 Respiratory Rate 18 18 Blood Pressure 143/79 H 154/92 H Pulse Oximetry 98 100 Oxygen Delivery Oxygen Flow Rate 08/14/25 21:01 08/14/25 21:30 08/14/25 21:46 Temperature Pulse Rate 91 91 93 Respiratory Rate 15 17 14 Blood Pressure 154/90 H 149/86 H Pulse Oximetry 96 100 99 Oxygen Delivery Oxygen Flow Rate 08/14/25 22:30 08/14/25 22:30 08/14/25 22:40 Temperature Pulse Rate 91 90 90 Respiratory Rate 18 15 16 Blood Pressure 152/95 H Pulse Oximetry 96 96 98 Oxygen Delivery BiPAP Oxygen Flow Rate 08/14/25 22:45 08/14/25 22:47 08/14/25 23:00 Temperature Pulse Rate 89 89 89 Respiratory Rate 18 16 17 Blood Pressure 132/76 Pulse Oximetry 97 97 98 Oxygen Delivery Oxygen Flow Rate 08/14/25 23:26 08/14/25 23:30 08/14/25 23:50 Temperature Pulse Rate 91 90 Respiratory Rate 15 15 Blood Pressure Pulse Oximetry 99 Oxygen Delivery Nasal Cannula Oxygen Flow Rate 08/15/25 00:01 08/15/25 00:06 08/15/25 00:15 Temperature Pulse Rate 90 91 90 Respiratory Rate 19 16 14 Blood Pressure 153/96 H Pulse Oximetry 92 Oxygen Delivery Oxygen Flow Rate 08/15/25 00:16 08/15/25 00:30 08/15/25 00:45 Temperature Pulse Rate 90 87 88 Respiratory Rate 17 14 17 Blood Pressure 149/88 H Pulse Oximetry Oxygen Delivery Oxygen Flow Rate 08/15/25 01:00 08/15/25 01:01 08/15/25 01:35 Temperature 97.8 F Pulse Rate 90 90 90 Respiratory Rate 17 17 18 Blood Pressure 150/92 H 151/85 H Pulse Oximetry 91 Oxygen Delivery Oxygen Flow Rate 08/15/25 02:00 08/15/25 03:48 08/15/25 03:57 Temperature 98.2 F Pulse Rate 89 87 Respiratory Rate 18 Blood Pressure 150/81 H Pulse Oximetry 98 93 Oxygen Delivery Nasal Cannula Oxygen Flow Rate 3 08/15/25 04:00 08/15/25 06:00 08/15/25 08:00 Temperature Pulse Rate 88 87 88 Respiratory Rate Blood Pressure Pulse Oximetry Oxygen Delivery Oxygen Flow Rate 08/15/25 08:12 08/15/25 10:00 08/15/25 11:29 Temperature 97.8 F Pulse Rate 87 87 83 Respiratory Rate 20 Blood Pressure 156/80 H Pulse Oximetry 97 Oxygen Delivery Oxygen Flow Rate 08/15/25 11:57 08/15/25 14:00 Temperature 97.6 F Pulse Rate 87 86 Respiratory Rate 22 H Blood Pressure 148/72 H Pulse Oximetry 96 Oxygen Delivery Oxygen Flow Rate Intake/Output Intake/Output: Intake & Output 08/12/25 08/13/25 08/14/25 08/15/25 23:59 23:59 23:59 23:59 Intake Total 236 Output Total 1250 Balance -1014 Meds/Results Medications: Active Medications Generic Name Dose Route Start Last Admin Trade Name Freq PRN Reason Stop Dose Admin Amlodipine Besylate 5 mg 08/15/25 09:00 08/15/25 09:09 Amlodipine Besylate 5 Mg Tablet PO 5 mg DAILY KAYCE Administration Dextrose 12.5 gm 08/15/25 06:34 Dextrose 50% 25 Gm/50 Ml Syringe IV PUSH PRN PRN Hypoglycemia Protocol Furosemide 40 mg 08/15/25 09:00 08/15/25 09:09 Furosemide Inj 40 Mg/4 Ml Vial IV PUSH 40 mg Q12HR KAYCE Administration Glucagon 1 mg 08/15/25 06:34 Glucagon For Inj 1 Mg Vial IM PRN PRN Hypoglycemia Protocol Glucose 15 gm 08/15/25 06:34 Glucose Oral Gel 15 Gm Of Glucse In 37.5 Gm Tube PO PRN PRN Hypoglycemia Protocol Dextrose 1,000 mls @ 100 mls/hr 08/15/25 06:34 Dextrose 5% 1,000 Ml IVPB PRN PRN Hypoglycemia Protocol Insulin Aspart 2 - 5 units 08/15/25 08:00 08/15/25 12:22 Insulin Aspart (*Bkc) 100 Units/Ml SUB-Q Not Given TIDWM KAYCE Protocol Insulin Glargine 12 units 08/15/25 21:00 Insulin Glargine (*Bkc) 100 Units/Ml SUB-Q HS KAYCE Perflutren Lipid Microsphere 0 ml 08/15/25 06:42 Perflutren Lipid Microspheres 1.5 Ml Vial Diluted To 10 Ml Total Volume IV PUSH 08/18/25 06:42 ONCE PRN adequate visualization Protocol Sertraline HCl 25 mg 08/15/25 09:00 08/15/25 09:09 Sertraline Hcl 25 Mg Tablet PO 25 mg DAILY KAYCE Administration Umeclidinium/Vilanterol 1 puff 08/15/25 08:00 08/15/25 07:40 Umeclidinium/Vilanterol 62.5-25 Mcg Ellipta INHALATION 1 puff DAILYRT KAYCE Administration Radiology Results: ITS Impressions Chest CT 08/14/25 21:02 IMPRESSION: 1. Cardiomegaly with severe multivessel coronary artery calcifications. 2. Large right pleural effusion and moderate left pleural effusion due to congestive heart failure. 3. No evidence of pulmonary consolidation or atelectasis, except for compression atelectasis of right lower lobe due to the pleural effusion. Head CT 08/15/25 06:33 IMPRESSION: 1. No acute intracranial findings. Chest X-Ray 08/15/25 14:48 IMPRESSION: 1. No evidence of pneumothorax on the right side. Reduction in the amount of pleural effusion compared with CT scan. 2. Cardiomegaly. Patchy airspace opacity in the lower lung garcia, suspicious of pulmonary edema. Thoracentesis Ultrasound 08/15/25 15:06 IMPRESSION: 1. Successful ultrasound-guided thoracentesis yielding 1100 mL of clear straw-colored fluid. Labs Labs: Laboratory Results - last 24 hr 08/14/25 08/14/25 08/14/25 17:48 18:15 22:02 WBC 4.3 L RBC 4.07 L Hgb 10.7 L Hct 35.8 L MCV 88.0 MCH 26.3 MCHC 29.9 L RDW 16.2 H Plt Count 167 MPV 10.4 Immature Gran % (Auto) 0.5 Neut % (Auto) 81.3 H Lymph % (Auto) 12.3 L [place] % (Auto) 4.9 Eos % (Auto) 0.5 Baso % (Auto) 0.5 Lymph # (Auto) 0.53 L [place] # (Auto) 0.2 Eos # (Auto) 0.0 Baso # (Auto) 0.0 Abs Immat Gran (auto) 0.02 Absolute Neuts (auto) 3.5 Absolute Nucleated RBC 0.000 Band Neutrophils % Not Reportable Nucleated RBC % 0.0 Platelet Estimate Adequate Hypochromasia 1+ Schistocytes None seen PT 14.0 INR 1.1 APTT 30.6 Puncture Site Left radial ABG pH 7.286 L* ABG pCO2 48.6 H ABG pO2 55.0 L ABG PO2/FiO2 Ratio 2.29 ABG HCO3 22.6 ABG O2 Saturation 84.7 L* ABG O2 Content 12.1 L ABG Base Excess -4.0 A-a Gradient 58.3 Oxyhemoglobin 84.9 L* Carboxyhemoglobin 1.7 Methemoglobin 0.3 Reduced Hemoglobin 13.1 H Total Hemoglobin 10.1 L O2 Delivery Device Nasal cannula O2 Liters/Min 1.0 FiO2 24 Sodium 140 Potassium 5.1 H Chloride 106 Carbon Dioxide 25 Anion Gap 9 BUN 56 H Creatinine 1.59 H Estim Creat Clear Calc 43 Estimated GFR 44 L Glucose 150 H POC Capillary Glucose Hemoglobin A1c 7.0 H Calcium 8.9 Phosphorus Magnesium Total Bilirubin 0.4 AST 31 ALT 25 Alkaline Phosphatase 144 H Troponin I 0.014 NT-Pro-B Natriuret Pep 63372 H Total Protein 8.1 Albumin 4.0 Vitamin B12 Vitamin D 25-Hydroxy Folate TSH (Reflex) Urine Color Yellow Urine Appearance Cloudy H Urine pH 5.0 Ur Specific [place] 1.020 Urine Protein 3+ H Urine Glucose (UA) Negative Urine Ketones Negative Ur Blood (Man) Trace Urine Nitrate Negative Urine Bilirubin Negative Urine Urobilinogen 1.0 Add Ur Microanalysis Reviewed Leukocyte Esterase Rfl Negative Urine RBC 0-2 Urine WBC 0-5 Ur Squamous Epith Cells None seen Urine Bacteria None seen Urine Casts 11-20 Pleural Fluid Source Pleural Color Pleural Appearance Pleural pH Pleural RBC Pleural Nuc Cells Pleural Neutrophils Pleural Lymphocytes Pleural Monocytes Pleural Macrophages 08/15/25 08/15/25 08/15/25 07:12 08:15 11:15 WBC 4.3 L RBC 3.41 L Hgb 9.1 L Hct 30.0 L MCV 88.0 MCH 26.7 MCHC 30.3 L RDW 16.1 H Plt Count 148 L MPV 10.5 H Immature Gran % (Auto) 0.5 Neut % (Auto) 74.8 H Lymph % (Auto) 15.7 L [place] % (Auto) 7.1 Eos % (Auto) 1.4 Baso % (Auto) 0.5 Lymph # (Auto) 0.68 L [place] # (Auto) 0.3 Eos # (Auto) 0.1 Baso # (Auto) 0.0 Abs Immat Gran (auto) 0.02 Absolute Neuts (auto) 3.3 Absolute Nucleated RBC 0.000 Band Neutrophils % Nucleated RBC % 0.0 Platelet Estimate Hypochromasia Schistocytes PT INR APTT Puncture Site ABG pH ABG pCO2 ABG pO2 ABG PO2/FiO2 Ratio ABG HCO3 ABG O2 Saturation ABG O2 Content ABG Base Excess A-a Gradient Oxyhemoglobin Carboxyhemoglobin Methemoglobin Reduced Hemoglobin Total Hemoglobin O2 Delivery Device O2 Liters/Min FiO2 Sodium 138 Potassium 4.8 Chloride 108 H Carbon Dioxide 24 Anion Gap 6 BUN 57 H Creatinine 1.52 H Estim Creat Clear Calc 43 Estimated GFR 46 L Glucose 137 H POC Capillary Glucose 110 H 138 H Hemoglobin A1c Calcium 8.9 Phosphorus 4.7 H Magnesium 1.7 Total Bilirubin 0.4 AST 30 ALT 23 Alkaline Phosphatase 139 H Troponin I NT-Pro-B Natriuret Pep Total Protein 6.5 Albumin 3.1 L Vitamin B12 643.0 Vitamin D 25-Hydroxy < 12.8 Folate 5.0 TSH (Reflex) 1.590 Urine Color Urine Appearance Urine pH Ur Specific [place] Urine Protein Urine Glucose (UA) Urine Ketones Ur Blood (Man) Urine Nitrate Urine Bilirubin Urine Urobilinogen Add Ur Microanalysis Leukocyte Esterase Rfl Urine RBC Urine WBC Ur Squamous Epith Cells Urine Bacteria Urine Casts Pleural Fluid Source Pleural Color Pleural Appearance Pleural pH Pleural RBC Pleural Nuc Cells Pleural Neutrophils Pleural Lymphocytes Pleural Monocytes Pleural Macrophages 08/15/25 08/15/25 14:49 16:16 WBC RBC Hgb Hct MCV MCH MCHC RDW Plt Count MPV Immature Gran % (Auto) Neut % (Auto) Lymph % (Auto) [place] % (Auto) Eos % (Auto) Baso % (Auto) Lymph # (Auto) [place] # (Auto) Eos # (Auto) Baso # (Auto) Abs Immat Gran (auto) Absolute Neuts (auto) Absolute Nucleated RBC Band Neutrophils % Nucleated RBC % Platelet Estimate Hypochromasia Schistocytes PT INR APTT Puncture Site ABG pH ABG pCO2 ABG pO2 ABG PO2/FiO2 Ratio ABG HCO3 ABG O2 Saturation ABG O2 Content ABG Base Excess A-a Gradient Oxyhemoglobin Carboxyhemoglobin Methemoglobin Reduced Hemoglobin Total Hemoglobin O2 Delivery Device O2 Liters/Min FiO2 Sodium Potassium Chloride Carbon Dioxide Anion Gap BUN Creatinine Estim Creat Clear Calc Estimated GFR Glucose POC Capillary Glucose 105 Hemoglobin A1c Calcium Phosphorus Magnesium Total Bilirubin AST ALT Alkaline Phosphatase Troponin I NT-Pro-B Natriuret Pep Total Protein Albumin Vitamin B12 Vitamin D 25-Hydroxy Folate TSH (Reflex) Urine Color Urine Appearance Urine pH Ur Specific [place] Urine Protein Urine Glucose (UA) Urine Ketones Ur Blood (Man) Urine Nitrate Urine Bilirubin Urine Urobilinogen Add Ur Microanalysis Leukocyte Esterase Rfl Urine RBC Urine WBC Ur Squamous Epith Cells Urine Bacteria Urine Casts Pleural Fluid Source Pleural fluid Pleural Color Yellow Pleural Appearance Clear Pleural pH 7.393 Pleural RBC < 2000 Pleural Nuc Cells 152 Pleural Neutrophils 8 Pleural Lymphocytes 33 Pleural Monocytes 48 Pleural Macrophages 11
--- NOTE | 2025-08-15 20:31 | PCRCNOTE ---
Patient refused ABG again.
[2025-08-15] MEDS: APIXABAN 5 MG TABLET PO (21:41)
[2025-08-15] MEDS: INSULIN GLARGINE (*BKC) 100 UNITS/ML 12 UNITS SUB-Q (21:43)
[2025-08-16] VITALS (22 sets, daily range): BP systolic 128–147; BP diastolic 62–77; PULSE 83–112; RESP 16–24; TEMP 36.1–37.1; O2SAT 92–98
[2025-08-16 04:45] LABS: Hematocrit 30.8 % (42.0-52.0); Hemoglobin 9.1 g/dL (14.0-18.0); Immature Granulocyte Percent A 0.5 % (0-0.5); Lymphocytes Absolute Auto 0.88 K/mm3 (0.9-3.2); Mean Corpuscular HGB Conc 29.5 g/dl (32-36); Mean Corpuscular Hemoglobin 26.4 pg (26-34); Mean Corpuscular Volume 89.3 fl (80-100); Nucleated Red Blood Cells Absolute Auto 0.000 K/mm3 (0.0-0.012); Nucleated Red Blood Cells Perc 0.0 % (0.0-0.2); Platelet Count Result 173 k/mm3 (150-375); Red Blood Count 3.45 M/mm3 (4.6-6.20); White Blood Count 4.4 K/mm3 (4.5-10.0)
[2025-08-16 05:12] LABS: Albumin Level 3.2 g/dL (3.5-5.1); Anion Gap 6 mmol/L (4-12); Blood Urea Nitrogen 61 mg/dL (9-20); Calcium 8.4 mg/dL (8.4-10.2); Carbon Dioxide 24 mmol/L (22-30); Chloride 107 mmol/L (98-107); Estimated CRCL calculation 39 ml/min; Estimated Glomerular Filt Rate 41; Glucose 122 mg/dL (65-110); Magnesium 1.7 mg/dL (1.6-2.3); Potassium 4.7 mmol/L (3.4-5.0); Sodium 137 mmol/L (137-145)
[2025-08-16 05:51] LABS: Anisocytosis 1+; Hypochromasia 1+
[2025-08-16 05:52] LABS: Macrocytosis Occasional (NORMAL); Schistocytes None Seen
[2025-08-16] MEDS: UMECLIDINIUM/VILANTEROL 62.5-25 MCG ELLIPTA 1 PUFF INHALATION (08:17)
[2025-08-16] MEDS: CHOLECALCIFEROL (VITAMIN D3) 25 MCG (1,000 UNITS) TABLET PO (08:34)
[2025-08-16] MEDS: SERTRALINE HCL 25 MG TABLET PO (08:34)
[2025-08-16] MEDS: FUROSEMIDE INJ 40 MG/4 ML VIAL IV PUSH (08:34)
[2025-08-16] MEDS: APIXABAN 5 MG TABLET PO ×2 (08:34→20:47)
[2025-08-16 09:06] LABS: Alveolar/Arterial O2 Gradient 97.4 mmHg; Fractional Inspired Oxygen 32 %; HCO3 ABG 23.8 mEq/l (22.0-26.0); Oxygen Content ABG 13.3 %vol (16.0-22.0); Oxygen Saturation ABG 92.6 % (95.0-100.0); PCO2 ABG 50.2 mmHg (35.0-45.0); PO2 ABG 72.0 mmHg (80.0-100.0); PO2 FiO2 Ratio Arterial Blood 2.25 %
[2025-08-16 09:08] LABS: Liters per Minute 3.0 LPM; Modified Allen's Test Pass; Site Drawn LEFT RADIAL
--- NOTE | 2025-08-16 10:47 | PM.CNCAR ---
Assessment and Plan Assessment and plan (1) Congestive heart failure: Qualifiers: Heart failure type: unspecified Heart failure chronicity: acute Qualified Code(s): I50.9 - Heart failure, unspecified Code(s): I50.9 - Heart failure, unspecified Status: Suspected Plan Acute on chronic diastolic heart failure chronic currently compensated ejection fraction 40-45% grade 3 diastolic dysfunction Acute hypoxemic hypercapnic respiratory failure likely related to underlying COPD Proximal atrial fibrillation Hypertension controlled CKD stage 3 Diabetes mellitus type 2 Plan DC IV Lasix start oral diuretic 40 mg p.o. b.i.d. Follow-up kidney function electrolytes Continue Eliquis Management of respiratory failure per primary team Amlodipine 5 mg daily History of Present Illness History of Present Illness Consult date/time: 08/16/25 10:47 Reason For Visit: Hypoxia, hypercapnia, CHF Narrative: 69-year-old male patient presented to the hospital with altered mental status. Patient was on BiPAP during examination cannot give any history. History obtained from chart review. Patient was noted to have hypoxemia with CO2 retention started on BiPAP. Workup including chest x-ray was suggestive of pulmonary congestion. Patient has history of atrial fibrillation oral anticoagulation has been on diuretics at home. Has history of diabetes mellitus type 2. [facility] Past Medical History Medical History (Updated 08/16/25 @ 00:28 by Mariel Garnica APRN) Tobacco dependence Polysubstance abuse Paroxysmal atrial fibrillation Prostate cancer Status post radiation. Gastroesophageal reflux disease Tuberculosis (2015) Hyperlipidemia Hypertension Insulin dependent diabetes mellitus Diabetic retinopathy Hepatitis C Anxiety Depression Hypertension COPD (chronic obstructive pulmonary disease) Below knee amputation Bilateral Congestive heart failure Diabetic acidosis, type II Surgical History Surgical History History of right below knee amputation History of appendectomy History of tonsillectomy History of left below knee amputation Family History Family History Mother Congestive heart failure Father Diabetes mellitus Son Myocardial infarction Son Diabetes mellitus Sibling Myocardial infarction Father Diabetes mellitus Son Heart disease Mother Heart disease Sibling Cerebral aneurysm Social History Social History Social History: The patient stated that he has 3 children. He lives with his daughter. He is retired. Code status: Full code Smoking packs per day: 1 Smoking cigarettes per day: 20.0 Years smoked: 59 Smoking pack-years: 59.00 Smoking status: Current every day smoker Tobacco type: cigarettes Second hand tobacco smoke exposure: Yes Alcohol intake: never Drinks per week: 14 Substance use: never Lack of Transportation: YES Lack of Food: Often True Current Housing: I Have Housing Concerned About Future Housing: YES Difficulty Paying Gas/Electric Bills: YES Difficulty Paying for Meds: YES Currently Unemployed: No Education: High School Diploma/GED Difficulty w/ Childcare or Family Care: No Living arrangements: with friend(s) Occupation/Education: retired Spiritual care concerns: No Agree to blood products: Yes Meds Home Medications and Allergies Home Medications ?Medication ?Instructions ?Recorded ?Confirmed ?Type metformin 500 mg tablet 500 mg PO BID 03/17/23 07/22/25 History insulin glargine 100 unit/mL (3 15 unit (0.15 mL) subcut HS #15 mL 03/24/23 07/22/25 Rx mL) subcutaneous pen (Lantus Solostar U-100 Insulin) insulin lispro 100 unit/mL 4 unit (0.04 mL) subcut AC #15 mL 03/24/23 07/22/25 Rx subcutaneous pen sertraline 50 mg tablet (Zoloft) 25 mg (1/2 x 50 mg) PO QAM #30 tabs 03/24/23 07/22/25 Rx amlodipine 5 mg tablet (Norvasc) 5 mg PO DAILY 30 days #30 tabs 06/26/25 07/22/25 Rx apixaban 5 mg tablet (Eliquis) 5 mg PO Q12HR 30 days #60 tabs 06/26/25 07/22/25 Rx furosemide 40 mg tablet 40 mg PO DAILY 30 days #30 tabs 06/26/25 07/22/25 Rx umeclidinium 62.5 mcg-vilanterol 1 inh inhalation DAILYRT 30 days 06/26/25 07/22/25 Rx 25 mcg/actuation powdr for #1 ea inhalation (Anoro Ellipta) amlodipine 5 mg tablet 5 mg PO DAILY 08/15/25 08/15/25 History apixaban 5 mg tablet (Eliquis) 5 mg PO Q12H 08/15/25 08/15/25 History furosemide 40 mg tablet (Lasix) 40 mg PO DAILY 08/15/25 08/15/25 History insulin glargine 100 unit/mL (3 15 unit subcut HS 08/15/25 08/15/25 History mL) subcutaneous pen (Basaglar KwikPen U-100 Insulin) insulin lispro 100 unit/mL 4 unit subcut TIDWM 08/15/25 08/15/25 History subcutaneous pen metformin 500 mg tablet 500 mg PO BID 08/15/25 08/15/25 History sertraline 25 mg tablet 25 mg PO DAILY 08/15/25 08/15/25 History umeclidinium 62.5 mcg-vilanterol 1 inh inhalation DAILY 08/15/25 08/15/25 History 25 mcg/actuation powdr for inhalation (Anoro Ellipta) Allergies Allergy/AdvReac Type Severity Reaction Status Date / Time No Known Allergies Allergy Verified 08/15/25 08:59 Vital Signs Vital Signs - 24 hr 08/15/25 11:29 08/15/25 11:57 08/15/25 14:00 Temperature 36.4 C Pulse Rate 83 87 86 Respiratory Rate 22 H Blood Pressure 148/72 H Pulse Oximetry 96 Oxygen Delivery Oxygen Flow Rate 08/15/25 16:00 08/15/25 16:00 08/15/25 18:00 Temperature 36.7 C Pulse Rate 85 86 86 Respiratory Rate 16 Blood Pressure 151/81 H Pulse Oximetry 96 Oxygen Delivery Oxygen Flow Rate 08/15/25 19:43 08/15/25 20:00 08/15/25 20:36 Temperature 36.8 C Pulse Rate 85 86 87 Respiratory Rate 18 Blood Pressure 146/75 H Pulse Oximetry 91 92 Oxygen Delivery Nasal Cannula Oxygen Flow Rate 3 08/15/25 21:40 08/15/25 22:00 08/16/25 00:00 Temperature 37.1 C Pulse Rate 88 86 Respiratory Rate 18 Blood Pressure 135/77 Pulse Oximetry 97 94 Oxygen Delivery Nasal Cannula Oxygen Flow Rate 3 08/16/25 00:00 08/16/25 00:00 08/16/25 02:00 Temperature Pulse Rate 88 85 Respiratory Rate Blood Pressure Pulse Oximetry 98 Oxygen Delivery Nasal Cannula Oxygen Flow Rate 3 08/16/25 04:00 08/16/25 04:00 08/16/25 04:10 Temperature 36.2 C L Pulse Rate 85 85 Respiratory Rate 18 Blood Pressure 133/72 Pulse Oximetry 98 96 Oxygen Delivery Nasal Cannula Oxygen Flow Rate 3 08/16/25 06:00 08/16/25 08:00 08/16/25 08:00 Temperature 36.4 C L Pulse Rate 84 85 88 Respiratory Rate 20 Blood Pressure 128/62 Pulse Oximetry 97 Oxygen Delivery Oxygen Flow Rate 08/16/25 08:19 08/16/25 08:19 08/16/25 08:20 Temperature Pulse Rate 88 88 Respiratory Rate 16 16 Blood Pressure Pulse Oximetry 98 Oxygen Delivery Nasal Cannula Oxygen Flow Rate 3 08/16/25 09:16 08/16/25 09:18 08/16/25 09:19 Temperature Pulse Rate 88 89 Respiratory Rate 24 H Blood Pressure Pulse Oximetry 95 96 96 Oxygen Delivery BiPAP BiPAP BiPAP Oxygen Flow Rate 2 08/16/25 10:00 Temperature Pulse Rate 88 Respiratory Rate Blood Pressure Pulse Oximetry Oxygen Delivery Oxygen Flow Rate Exam Const: General: comfortable and no acute distress ( On BiPAP) Other: Able to lie flat HENMT: Face/Nose/Sinus: Normal nares present and no epistaxis Mouth: Yes moist mucous membranes Eyes: Sclera: sclerae normal Pupils: Equal, round and reactive pupils present Neck: Neck: supple and no JVD Carotids: no bruits Resp: Auscultation: rhonchi ( diffuse) and lung sounds not diminished Other: No chest wall tenderness Cardio: Rate: regular rate Rhythm: regular rhythm Heart sounds: no gallops, no murmurs and no rubs GI: GI Palp: Yes Soft to palpation and No Tenderness to palpation present (GI) Auscultation: normal bowel sounds Skin: General skin exam: normal color, rashes and/or lesions noted and no erythema Other: Warm Neuro: Cranial nerves: Yes Equal, round and reactive pupils present Speech: normal speech Other: No obvious focal deficit or facial asymmetry Extrem: General: no edema Other: Normal capillary refills Intact distal pulses. Results Labs and Meds 08/16/25 04:00 08/16/25 04:00 Lab results: CBC 08/16/25 Range/Units 04:00 WBC 4.4 L (4.5-10.0) K/mm3 RBC 3.45 L (4.6-6.20) M/mm3 Hgb 9.1 L (14.0-18.0) g/dL Hct 30.8 L (42.0-52.0) % Plt Count 173 (150-375) k/mm3 Lymph # (Auto) 0.88 L (0.9-3.2) K/mm3 [place] # (Auto) 0.4 (0.1-0.6) K/mm3 Eos # (Auto) 0.1 (0-0.3) K/mm3 Baso # (Auto) 0.0 (0.0-0.1) K/mm3 Comprehensive Metabolic Panel 08/16/25 Range/Units 04:00 Sodium 137 (137-145) mmol/L Potassium 4.7 (3.4-5.0) mmol/L Chloride 107 (98-107) mmol/L Carbon Dioxide 24 (22-30) mmol/L BUN 61 H (9-20) mg/dL Creatinine 1.69 H (0.7-1.3) mg/dL Glucose 122 H (65-110) mg/dL Calcium 8.4 (8.4-10.2) mg/dL Albumin 3.2 L (3.5-5.1) g/dL Intake and Output 08/15/25 08/16/25 08/16/25 23:59 07:59 15:59 Intake Total 490 0 Output Total 300 500 Balance 190 -500 0 Intake: Oral 490 0 Output: Urine 300 500 Other: # Incontinent Voids 1 Number of Bowel Movements Today 1 Patient Weight 08/16/25 23:59 Weight 72.8 kg
[2025-08-16 11:53] LABS: Alveolar/Arterial O2 Gradient 90.2 mmHg; Fractional Inspired Oxygen 28 %; HCO3 ABG 23.6 mEq/l (22.0-26.0); PCO2 ABG 46.4 mmHg (35.0-45.0); PO2 ABG 54.7 mmHg (80.0-100.0); PO2 FiO2 Ratio Arterial Blood 1.95 %
[2025-08-16 11:54] LABS: Liters per Minute 2.0 LPM; Modified Allen's Test Pass; Oxygen Saturation ABG 86.0 % (95.0-100.0); Site Drawn LEFT RADIAL
[2025-08-16 11:55] LABS: Non-Invasive Expiratory Pressure 6 CMH2O; Non-Invasive Inspiratory Pressure 12 CMH2O; Non-Invasive Vent Rate 18 /MIN
[2025-08-16 13:08] LABS: Glucose, Body Fluid 132 mg/dL (.); LD, Body Fluid 64 IU/L (.); Triglycerides, Body Fluid 14 mg/dL (Not Estab.)
[2025-08-16 13:08] LABS: Albumin, Body Fluid 1.4 g/dL (Not Estab.)
--- NOTE | 2025-08-16 14:52 | P.PNIM_ITS ---
Progress Note: A&P Assessment and Plan (1) Congestive heart failure: Code(s): I50.9 - Heart failure, unspecified Status: Acute Assessment and Plan: Patient presents with SOB and found to have acute on chronic systolic and diastolic CHF. BNP 21K. CXR showing cardiomegaly, bilateral pleural effusion and congestion with possible pulmonary edema CT Chest showing cardiomegaly with severe multivessel coronary artery calcifications, R>L pleural effusions but no pulm consolidation or atelectasis, except for compression atelectasis of RLL due to the pleural effusion. Started on IV Lasix. Echo showing EF 40-45% with G3DD, mild concentric LVH, mild-moderate MR and small pericardial effusion. Renal function stable. Cardiology following Change to oral Lasix. Monitor urine output, daily weights and I/Os. (2) Acute on chronic respiratory failure with hypoxia and hypercapnia: Code(s): J96.21 - Acute and chronic respiratory failure with hypoxia; J96.22 - Acute and chronic respiratory failure with hypercapnia Status: Acute Assessment and Plan: ABG on admission 7.286/49/55 on 1L. Normally wears 3L O2 chronically. BiPAP started but only wearing intermittently Repeat ABG better 7.32/46/55 on 2L. Encourage BiPAP use. Speech therapy evaluation. (3) COPD (chronic obstructive pulmonary disease): Code(s): J44.9 - Chronic obstructive pulmonary disease, unspecified Status: Acute Assessment and Plan: No wheezing. Stable on his 3L. Continue with home inhalers. (4) Pleural effusion: Code(s): J90 - Pleural effusion, not elsewhere classified Status: Acute Assessment and Plan: Patient with bilateral R>L pleural effusions. [place] related to CHF Thoracentesis 08/15 with removal of 1100mL of straw colored urine. Studies sent. pH normal. <2000 RBC and 152 WBC with normal differential. Diuretic therapy as above. (5) Altered mental status: Code(s): R41.82 - Altered mental status, unspecified Status: Acute Assessment and Plan: Patient remains confused but better today. Not clear on his baseline mental function. Head CT showing no acute intracranial findings. No focal weakness. B12, folate and TSH normal. Vit D low so replacement ordered Repeat ABG noted and improved. Follow (6) Paroxysmal atrial fibrillation: Code(s): I48.0 - Paroxysmal atrial fibrillation Status: Chronic Assessment and Plan: Patient with pAFib on Eliquis. Also has hx of DVT. Not on rate lowering agents. Monitor on tele (7) Diabetic acidosis, type II: Code(s): E11.10 - Type 2 diabetes mellitus with ketoacidosis without coma Status: Acute Assessment and Plan: A1c 7.0%. The patient's blood glucose was reviewed on 08/16 Glucose remains well controlled. Continue Lantus at lower dose. Continue AccuCheks covering with sliding scale. Hypoglycemia protocol available as needed. Continue to monitor (8) Hypertension: Code(s): I10 - Essential (primary) hypertension Status: Acute Assessment and Plan: Patient's blood pressure was reviewed on 08/16 Blood pressure better controlled Will continue to monitor for now (9) CKD (chronic kidney disease): Code(s): N18.9 - Chronic kidney disease, unspecified Status: Acute Assessment and Plan: Baseline Cr around 1.4-1.8 range. Cr here 1.5-1.7 and stable on Lasix. Continue to monitor. Plan Code status - full DVT prophylaxis - Eliquis Subjective Date/time seen: 08/16/25 14:52 Interval history: 69yo male with CHF, COPD, HTN, Chronic resp failure on 3L, DM and bilateral BKAs here for shortness of breath. Patient refusing bipap and ABGs overnight. Alert but still confused. Patient slept poorly. Denies chest pain or shortness of breath. Cough nonproductive. Denies odynophagia or dysphagia. Exam Narrative: AF 96.9 147/77 85 24 96% 3L Gen - NARD HEENT -poor dentition with broken teeth Chest -coarse breath sounds diffusely. CV - RRR S1/S2. Telemetry showing no significant dysrhythmias Abd - Soft, NT/ND, Positive BS Ext -bilateral BKA. Neuro - Alert but confused. Oriented to location and month. Slow to respond. Follows commands. No focal weakness. Psych - dull affect Skin - Warm and dry. Objective Data Vital Signs Vital Signs: Vital Signs - 24 hr 08/15/25 16:00 08/15/25 16:00 08/15/25 18:00 Temperature 98.0 F Pulse Rate 85 86 86 Respiratory Rate 16 Blood Pressure 151/81 H Pulse Oximetry 96 Oxygen Delivery Oxygen Flow Rate 08/15/25 19:43 08/15/25 20:00 08/15/25 20:36 Temperature 98.2 F Pulse Rate 85 86 87 Respiratory Rate 18 Blood Pressure 146/75 H Pulse Oximetry 91 92 Oxygen Delivery Nasal Cannula Oxygen Flow Rate 3 08/15/25 21:40 08/15/25 22:00 08/16/25 00:00 Temperature 98.8 F Pulse Rate 88 86 Respiratory Rate 18 Blood Pressure 135/77 Pulse Oximetry 97 94 Oxygen Delivery Nasal Cannula Oxygen Flow Rate 3 08/16/25 00:00 08/16/25 00:00 08/16/25 02:00 Temperature Pulse Rate 88 85 Respiratory Rate Blood Pressure Pulse Oximetry 98 Oxygen Delivery Nasal Cannula Oxygen Flow Rate 3 08/16/25 04:00 08/16/25 04:00 08/16/25 04:10 Temperature 97.2 F L Pulse Rate 85 85 Respiratory Rate 18 Blood Pressure 133/72 Pulse Oximetry 98 96 Oxygen Delivery Nasal Cannula Oxygen Flow Rate 3 08/16/25 06:00 08/16/25 08:00 08/16/25 08:00 Temperature 97.5 F L Pulse Rate 84 85 88 Respiratory Rate 20 Blood Pressure 128/62 Pulse Oximetry 97 Oxygen Delivery Oxygen Flow Rate 08/16/25 08:19 08/16/25 08:19 08/16/25 08:20 Temperature Pulse Rate 88 88 Respiratory Rate 16 16 Blood Pressure Pulse Oximetry 98 Oxygen Delivery Nasal Cannula Oxygen Flow Rate 3 08/16/25 09:16 08/16/25 09:18 08/16/25 09:19 Temperature Pulse Rate 88 89 Respiratory Rate 24 H Blood Pressure Pulse Oximetry 95 96 96 Oxygen Delivery BiPAP BiPAP BiPAP Oxygen Flow Rate 2 08/16/25 10:00 08/16/25 11:51 08/16/25 12:00 Temperature 96.9 F L Pulse Rate 88 86 85 Respiratory Rate 24 H Blood Pressure 147/77 H Pulse Oximetry 96 Oxygen Delivery Oxygen Flow Rate Intake/Output Intake/Output: Intake & Output 08/13/25 08/14/25 08/15/25 08/16/25 23:59 23:59 23:59 23:59 Intake Total 726 240 Output Total 1550 500 Balance -825 -738 Meds/Results Medications: Active Medications Generic Name Dose Route Start Last Admin Trade Name Freq PRN Reason Stop Dose Admin Amlodipine Besylate 5 mg 08/15/25 09:00 08/16/25 08:34 Amlodipine Besylate 5 Mg Tablet PO 5 mg DAILY KAYCE Administration Apixaban 5 mg 08/15/25 21:00 08/16/25 08:34 Apixaban 5 Mg Tablet PO 5 mg Q12HR KAYCE Administration Dextrose 12.5 gm 08/15/25 06:34 Dextrose 50% 25 Gm/50 Ml Syringe IV PUSH PRN PRN Hypoglycemia Protocol Furosemide 40 mg 08/15/25 09:00 08/16/25 08:34 Furosemide Inj 40 Mg/4 Ml Vial IV PUSH 40 mg Q12HR KAYCE Administration Glucagon 1 mg 08/15/25 06:34 Glucagon For Inj 1 Mg Vial IM PRN PRN Hypoglycemia Protocol Glucose 15 gm 08/15/25 06:34 Glucose Oral Gel 15 Gm Of Glucse In 37.5 Gm Tube PO PRN PRN Hypoglycemia Protocol Dextrose 1,000 mls @ 100 mls/hr 08/15/25 06:34 Dextrose 5% 1,000 Ml IVPB PRN PRN Hypoglycemia Protocol Insulin Aspart 2 - 5 units 08/15/25 08:00 08/16/25 11:54 Insulin Aspart (*Bkc) 100 Units/Ml SUB-Q Not Given TIDWM KAYCE Protocol Insulin Glargine 12 units 08/15/25 21:00 08/15/25 21:43 Insulin Glargine (*Bkc) 100 Units/Ml SUB-Q 12 units HS KAYCE Administration Perflutren Lipid Microsphere 0 ml 08/15/25 06:42 Perflutren Lipid Microspheres 1.5 Ml Vial Diluted To 10 Ml Total Volume IV PUSH 08/18/25 06:42 ONCE PRN adequate visualization Protocol Sertraline HCl 25 mg 08/15/25 09:00 08/16/25 08:34 Sertraline Hcl 25 Mg Tablet PO 25 mg DAILY KAYCE Administration Umeclidinium/Vilanterol 1 puff 08/15/25 08:00 08/16/25 08:17 Umeclidinium/Vilanterol 62.5-25 Mcg Ellipta INHALATION 1 puff DAILYRT KAYCE Administration Vitamin D 25 mcg 08/16/25 09:00 08/16/25 08:34 Cholecalciferol (Vitamin D3) 25 Mcg (1,000 Units) Tablet PO 25 mcg DAILY KAYCE Administration Radiology Results: ITS Impressions Chest CT 08/14/25 21:02 IMPRESSION: 1. Cardiomegaly with severe multivessel coronary artery calcifications. 2. Large right pleural effusion and moderate left pleural effusion due to congestive heart failure. 3. No evidence of pulmonary consolidation or atelectasis, except for compression atelectasis of right lower lobe due to the pleural effusion. Head CT 08/15/25 06:33 IMPRESSION: 1. No acute intracranial findings. Chest X-Ray 08/15/25 14:48 IMPRESSION: 1. No evidence of pneumothorax on the right side. Reduction in the amount of pleural effusion compared with CT scan. 2. Cardiomegaly. Patchy airspace opacity in the lower lung garcia, suspicious of pulmonary edema. Thoracentesis Ultrasound 08/15/25 15:06 IMPRESSION: 1. Successful ultrasound-guided thoracentesis yielding 1100 mL of clear straw- colored fluid. Labs Labs: Laboratory Results - last 24 hr 08/15/25 08/15/25 08/15/25 14:14 14:49 16:16 WBC RBC Hgb Hct MCV MCH MCHC RDW Plt Count MPV Immature Gran % (Auto) Neut % (Auto) Lymph % (Auto) Hubbard % (Auto) Eos % (Auto) Baso % (Auto) Lymph # (Auto) Hubbard # (Auto) Eos # (Auto) Baso # (Auto) Abs Immat Gran (auto) Absolute Neuts (auto) Absolute Nucleated RBC Band Neutrophils % Nucleated RBC % Platelet Estimate Hypochromasia Anisocytosis Macrocytosis Schistocytes Puncture Site ABG pH ABG pCO2 ABG pO2 ABG PO2/FiO2 Ratio ABG HCO3 ABG O2 Saturation ABG O2 Content ABG Base Excess A-a Gradient Oxyhemoglobin Total Hemoglobin O2 Delivery Device O2 Liters/Min Vent Rate FiO2 Expiratory Pressure Inspiratory Pressure Sodium Potassium Chloride Carbon Dioxide Anion Gap BUN Creatinine Estim Creat Clear Calc Estimated GFR Glucose POC Capillary Glucose 105 Calcium Phosphorus Magnesium Albumin Fluid Glucose 132 Fluid Total Protein 2.3 Fluid Albumin 1.4 Fluid LDH 64 Fluid Amylase 121 Fluid Triglycerides 14 Pleural Fluid Source Pleural fluid Pleural Color Yellow Pleural Appearance Clear Pleural pH 7.393 Pleural RBC < 2000 Pleural Nuc Cells 152 Pleural Neutrophils 8 Pleural Lymphocytes 33 Pleural Monocytes 48 Pleural Macrophages 11 Pleural Total Protein Cancelled 08/15/25 08/16/25 08/16/25 20:47 04:00 07:40 WBC 4.4 L RBC 3.45 L Hgb 9.1 L Hct 30.8 L MCV 89.3 MCH 26.4 MCHC 29.5 L RDW 15.9 H Plt Count 173 MPV 11.2 H Immature Gran % (Auto) 0.5 Neut % (Auto) 69.8 Lymph % (Auto) 19.8 Hubbard % (Auto) 8.1 Eos % (Auto) 1.1 Baso % (Auto) 0.7 Lymph # (Auto) 0.88 L Hubbard # (Auto) 0.4 Eos # (Auto) 0.1 Baso # (Auto) 0.0 Abs Immat Gran (auto) 0.02 Absolute Neuts (auto) 3.1 Absolute Nucleated RBC 0.000 Band Neutrophils % Not Reportable Nucleated RBC % 0.0 Platelet Estimate Adequate Hypochromasia 1+ Anisocytosis 1+ Macrocytosis Occasional Schistocytes None seen Puncture Site ABG pH ABG pCO2 ABG pO2 ABG PO2/FiO2 Ratio ABG HCO3 ABG O2 Saturation ABG O2 Content ABG Base Excess A-a Gradient Oxyhemoglobin Total Hemoglobin O2 Delivery Device O2 Liters/Min Vent Rate FiO2 Expiratory Pressure Inspiratory Pressure Sodium 137 Potassium 4.7 Chloride 107 Carbon Dioxide 24 Anion Gap 6 BUN 61 H Creatinine 1.69 H Estim Creat Clear Calc 39 Estimated GFR 41 L Glucose 122 H POC Capillary Glucose 137 H 121 H Calcium 8.4 Phosphorus 5.1 H Magnesium 1.7 Albumin 3.2 L Fluid Glucose Fluid Total Protein Fluid Albumin Fluid LDH Fluid Amylase Fluid Triglycerides Pleural Fluid Source Pleural Color Pleural Appearance Pleural pH Pleural RBC Pleural Nuc Cells Pleural Neutrophils Pleural Lymphocytes Pleural Monocytes Pleural Macrophages Pleural Total Protein 08/16/25 08/16/25 08:14 11:13 WBC RBC Hgb Hct MCV MCH MCHC RDW Plt Count MPV Immature Gran % (Auto) Neut % (Auto) Lymph % (Auto) [place] % (Auto) Eos % (Auto) Baso % (Auto) Lymph # (Auto) Hubbard # (Auto) Eos # (Auto) Baso # (Auto) Abs Immat Gran (auto) Absolute Neuts (auto) Absolute Nucleated RBC Band Neutrophils % Nucleated RBC % Platelet Estimate Hypochromasia Anisocytosis Macrocytosis Schistocytes Puncture Site Left radial Left radial ABG pH 7.293 L* 7.324 L ABG pCO2 50.2 H 46.4 H ABG pO2 72.0 L 54.7 L ABG PO2/FiO2 Ratio 2.25 1.95 ABG HCO3 23.8 23.6 ABG O2 Saturation 92.6 L 86.0 L* ABG O2 Content 13.3 L ABG Base Excess -2.9 -2.7 A-a Gradient 97.4 90.2 Oxyhemoglobin 92.4 Total Hemoglobin 10.2 L O2 Delivery Device Nasal cannula Non-invasive vent O2 Liters/Min 3.0 2.0 Vent Rate 18 FiO2 32 28 Expiratory Pressure 6 Inspiratory Pressure 12 Sodium Potassium Chloride Carbon Dioxide Anion Gap BUN Creatinine Estim Creat Clear Calc Estimated GFR Glucose POC Capillary Glucose 130 H Calcium Phosphorus Magnesium Albumin Fluid Glucose Fluid Total Protein Fluid Albumin Fluid LDH Fluid Amylase Fluid Triglycerides Pleural Fluid Source Pleural Color Pleural Appearance Pleural pH Pleural RBC Pleural Nuc Cells Pleural Neutrophils Pleural Lymphocytes Pleural Monocytes Pleural Macrophages Pleural Total Protein
--- NOTE | 2025-08-16 17:37 | PCRCNOTE ---
THE STAT ABG AT 11:13 WAS DELAYED BECAUSE PATIENT REFUSED, LATER ON PATIENT DECIDED TO GO ON WITH ABG
[2025-08-16] MEDS: INSULIN GLARGINE (*BKC) 100 UNITS/ML 12 UNITS SUB-Q (20:47)
[2025-08-16] MEDS: WATER FOR IRRIGATION, STERILE 1,000 ML BOTTLE 1000 ML (23:35)
[2025-08-17] VITALS (21 sets, daily range): BP systolic 131–159; BP diastolic 65–84; PULSE 85–89; RESP 21–28; TEMP 35.8–36.7; O2SAT 92–95
[2025-08-17 04:17] LABS: Hematocrit 32.6 % (42.0-52.0); Hemoglobin 9.7 g/dL (14.0-18.0); Mean Corpuscular HGB Conc 29.8 g/dl (32-36); Mean Corpuscular Hemoglobin 26.6 pg (26-34); Mean Corpuscular Volume 89.3 fl (80-100); Platelet Count Result 164 k/mm3 (150-375); Red Blood Count 3.65 M/mm3 (4.6-6.20); White Blood Count 4.7 K/mm3 (4.5-10.0)
[2025-08-17 04:32] LABS: Anion Gap 7 mmol/L (4-12); Blood Urea Nitrogen 65 mg/dL (9-20); Calcium 8.7 mg/dL (8.4-10.2); Carbon Dioxide 25 mmol/L (22-30); Chloride 106 mmol/L (98-107); Estimated CRCL calculation 39 ml/min; Estimated Glomerular Filt Rate 41; Glucose 106 mg/dL (65-110); Magnesium 1.9 mg/dL (1.6-2.3); Potassium 4.8 mmol/L (3.4-5.0); Sodium 138 mmol/L (137-145)
[2025-08-17] MEDS: UMECLIDINIUM/VILANTEROL 62.5-25 MCG ELLIPTA 1 PUFF INHALATION (07:56)
[2025-08-17] MEDS: SERTRALINE HCL 25 MG TABLET PO (08:44)
[2025-08-17] MEDS: APIXABAN 5 MG TABLET PO (08:44)
[2025-08-17] MEDS: CHOLECALCIFEROL (VITAMIN D3) 25 MCG (1,000 UNITS) TABLET PO (08:44)
[2025-08-17] MEDS: FUROSEMIDE 40 MG TABLET PO ×2 (08:44→17:08)
--- NOTE | 2025-08-17 09:57 | PCSTNOTE ---
Please refer to the Bedside Swallow Evaluation in the EMR. Please note, silent aspiration cannot be ruled out at bedside. Pt is a 69 year old male who presents this admission for an increase in shortness of breath. Pt with a notable past medical history of CHF and bilateral BKA. Bedside swallow orders completed due to pt with decline in respiratory status and possible pneumonia. RN agreeable to evaluation and stated that pt was weak overall and demonstrates a weak cough. Upon ST arrival, pt was only oriented to his name and stated related but inaccurate information for all other orientation questions. Throughout the evaluation, pt followed all commands and inconsistently self-fed trials. An oral mechanism exam was completed this date and was remarkable for notable missing dentition, weak cough, and consistent open mouth posture throughout the evaluation. PO trials included ice chips x3, thin liquids via tsp, cup edge, and straw, and pudding x4. Pt seen with a timely and unremarkable oral phase of swallowing. With cup edge drink x2 and large volume straw drink, pt noted with immediate coughing. This could be indicative of penetration or aspiration. Of note, pt was coughing throughout the evaluation; however, these instances were noted to be directly following the PO trial. No other overt s/s of aspiration were noted with ice chips, puree, or small volume thin liquid trails. Pt denied globus sensation following all trials. Given this information the following recommendations have been made: Recommendations: 1. NPO pending completion of MBS to further evaluate pt swallow safety. MBS to be completed tomorrow. 2. Ice chips for comfort with RN supervision. Okay for medications in puree if required
[2025-08-17 11:56] LABS: Alveolar/Arterial O2 Gradient 70.6 mmHg; Fractional Inspired Oxygen 28 %; HCO3 ABG 24.4 mEq/l (22.0-26.0); Oxygen Content ABG 13.7 %vol (16.0-22.0); Oxygen Saturation ABG 91.6 % (95.0-100.0); PCO2 ABG 51.3 mmHg (35.0-45.0); PO2 ABG 68.5 mmHg (80.0-100.0); PO2 FiO2 Ratio Arterial Blood 2.45 %
[2025-08-17 12:01] LABS: Site Drawn LEFT BRACHIAL
[2025-08-17 12:02] LABS: Liters per Minute 0.0 LPM; Non-Invasive Expiratory Pressure 6 CMH2O; Non-Invasive Inspiratory Pressure 12 CMH2O; Non-Invasive Vent Rate 18 /MIN
--- NOTE | 2025-08-17 12:23 | P.PNCA_ITS ---
Progress Note: A&P Assessment and Plan (1) Congestive heart failure: Code(s): I50.9 - Heart failure, unspecified Status: Acute Plan Acute on chronic diastolic heart failure chronic currently compensated ejection fraction 40-45% grade 3 diastolic dysfunction Acute hypoxemic hypercapnic respiratory failure likely related to underlying COPD Proximal atrial fibrillation Hypertension controlled CKD stage 3 Diabetes mellitus type 2 Plan Start oral diuretic 40 mg p.o. b.i.d. Follow-up kidney function electrolytes Continue Eliquis Management of respiratory failure per primary team Amlodipine 5 mg daily Subjective Date/time seen: 08/17/25 12:23 Interval history: follow up for CHF Tele: NSR No acute events Review of Systems Review of Systems: ROS unobtainable: Yes other (on BiPAP) Exam Const: General: comfortable and no acute distress ( On BiPAP) Other: Able to lie flat HENMT: Face/Nose/Sinus: Normal nares present and no epistaxis Mouth: Yes moist mucous membranes Eyes: Sclera: sclerae normal Pupils: Equal, round and reactive pupils present Neck: Neck: supple and no JVD Carotids: no bruits Resp: Auscultation: rhonchi ( diffuse) and lung sounds not diminished Other: No chest wall tenderness Cardio: Rate: regular rate Rhythm: regular rhythm Heart sounds: no gallops, no murmurs and no rubs GI: GI Palp: Yes Soft to palpation and No Tenderness to palpation present (GI) Auscultation: normal bowel sounds Skin: General skin exam: normal color, rashes and/or lesions noted and no erythema Other: Warm Neuro: Cranial nerves: Yes Equal, round and reactive pupils present Speech: normal speech Other: No obvious focal deficit or facial asymmetry Extrem: General: no edema Other: Normal capillary refills Intact distal pulses. Objective Data Vital Signs Vital Signs: Vital Signs - 24 hr 08/16/25 14:00 08/16/25 15:56 08/16/25 16:00 Temperature 36.6 C Pulse Rate 112 H 83 85 Respiratory Rate 23 H Blood Pressure 139/71 Pulse Oximetry 94 Oxygen Delivery Oxygen Flow Rate 08/16/25 18:00 08/16/25 20:00 08/16/25 20:00 Temperature 36.7 C Pulse Rate 86 88 87 Respiratory Rate 22 H Blood Pressure 141/64 H Pulse Oximetry 94 Oxygen Delivery Oxygen Flow Rate 08/16/25 20:45 08/16/25 21:06 08/16/25 21:16 Temperature Pulse Rate 87 Respiratory Rate 18 Blood Pressure Pulse Oximetry 94 92 Oxygen Delivery Nasal Cannula BiPAP Oxygen Flow Rate 3 3 08/16/25 22:00 08/17/25 00:00 08/17/25 00:00 Temperature Pulse Rate 85 85 Respiratory Rate Blood Pressure Pulse Oximetry 93 Oxygen Delivery High Flow Nasal Cannula Oxygen Flow Rate 5 08/17/25 00:00 08/17/25 02:00 08/17/25 04:00 Temperature 36.4 C L 35.8 C L Pulse Rate 86 87 85 Respiratory Rate 22 H 22 H Blood Pressure 131/65 142/77 H Pulse Oximetry 93 95 Oxygen Delivery Oxygen Flow Rate 08/17/25 04:00 08/17/25 04:10 08/17/25 06:00 Temperature Pulse Rate 87 86 Respiratory Rate Blood Pressure Pulse Oximetry 95 Oxygen Delivery High Flow Nasal Cannula Oxygen Flow Rate 5 08/17/25 07:57 08/17/25 08:00 08/17/25 08:00 Temperature 36.4 C L Pulse Rate 87 89 Respiratory Rate 22 H 23 H Blood Pressure 157/76 H Pulse Oximetry 92 93 92 Oxygen Delivery High Flow Nasal Cannula BiPAP Oxygen Flow Rate 5 08/17/25 08:00 08/17/25 09:40 08/17/25 10:00 Temperature Pulse Rate 88 89 88 Respiratory Rate 23 H Blood Pressure Pulse Oximetry 92 Oxygen Delivery BiPAP Oxygen Flow Rate 08/17/25 11:12 08/17/25 12:00 08/17/25 12:00 Temperature 36.3 C L Pulse Rate 89 87 87 Respiratory Rate 22 H 22 H Blood Pressure 146/78 H Pulse Oximetry 94 94 Oxygen Delivery BiPAP Oxygen Flow Rate 08/17/25 12:12 Temperature Pulse Rate 87 Respiratory Rate 21 H Blood Pressure Pulse Oximetry 93 Oxygen Delivery BiPAP Oxygen Flow Rate Intake/Output Intake/Output: Intake & Output 08/14/25 08/15/25 08/16/25 08/17/25 23:59 23:59 23:59 23:59 Intake Total 726 240 0 Output Total 1550 900 250 Balance -824 -660 -250 Meds/Results Medications: Active Medications Generic Name Dose Route Start Last Admin Trade Name Freq PRN Reason Stop Dose Admin Amlodipine Besylate 5 mg 08/15/25 09:00 08/17/25 08:44 Amlodipine Besylate 5 Mg Tablet PO 5 mg DAILY KAYCE Administration Apixaban 5 mg 08/15/25 21:00 08/17/25 08:44 Apixaban 5 Mg Tablet PO 5 mg Q12HR KAYCE Administration Dextrose 12.5 gm 08/15/25 06:34 Dextrose 50% 25 Gm/50 Ml Syringe IV PUSH PRN PRN Hypoglycemia Protocol Furosemide 40 mg 08/17/25 09:00 08/17/25 08:44 Furosemide 40 Mg Tablet PO 40 mg BID KAYCE Administration Glucagon 1 mg 08/15/25 06:34 Glucagon For Inj 1 Mg Vial IM PRN PRN Hypoglycemia Protocol Glucose 15 gm 08/15/25 06:34 Glucose Oral Gel 15 Gm Of Glucse In 37.5 Gm Tube PO PRN PRN Hypoglycemia Protocol Dextrose 1,000 mls @ 100 mls/hr 08/15/25 06:34 Dextrose 5% 1,000 Ml IVPB PRN PRN Hypoglycemia Protocol Insulin Aspart 2 - 5 units 08/15/25 08:00 08/17/25 12:19 Insulin Aspart (*Bkc) 100 Units/Ml SUB-Q Not Given TIDWM KAYCE Protocol Insulin Glargine 12 units 08/15/25 21:00 08/16/25 20:47 Insulin Glargine (*Bkc) 100 Units/Ml SUB-Q 12 units HS KAYCE Administration Perflutren Lipid Microsphere 0 ml 08/15/25 06:42 Perflutren Lipid Microspheres 1.5 Ml Vial Diluted To 10 Ml Total Volume IV PUSH 08/18/25 06:42 ONCE PRN adequate visualization Protocol Sertraline HCl 25 mg 08/15/25 09:00 08/17/25 08:44 Sertraline Hcl 25 Mg Tablet PO 25 mg DAILY KAYCE Administration Umeclidinium/Vilanterol 1 puff 08/15/25 08:00 08/17/25 07:56 Umeclidinium/Vilanterol 62.5-25 Mcg Ellipta INHALATION 1 puff DAILYRT KAYCE Administration Vitamin D 25 mcg 08/16/25 09:00 08/17/25 08:44 Cholecalciferol (Vitamin D3) 25 Mcg (1,000 Units) Tablet PO 25 mcg DAILY KAYCE Administration Radiology Results: ITS Impressions Chest CT 08/14/25 21:02 IMPRESSION: 1. Cardiomegaly with severe multivessel coronary artery calcifications. 2. Large right pleural effusion and moderate left pleural effusion due to congestive heart failure. 3. No evidence of pulmonary consolidation or atelectasis, except for compression atelectasis of right lower lobe due to the pleural effusion. Head CT 08/15/25 06:33 IMPRESSION: 1. No acute intracranial findings. Chest X-Ray 08/15/25 14:48 IMPRESSION: 1. No evidence of pneumothorax on the right side. Reduction in the amount of pleural effusion compared with CT scan. 2. Cardiomegaly. Patchy airspace opacity in the lower lung garcia, suspicious of pulmonary edema. Thoracentesis Ultrasound 08/15/25 15:06 IMPRESSION: 1. Successful ultrasound-guided thoracentesis yielding 1100 mL of clear straw- colored fluid. Labs Labs: Laboratory Results - last 24 hr 08/15/25 08/15/25 08/16/25 14:14 14:49 11:13 WBC RBC Hgb Hct MCV MCH MCHC RDW Plt Count MPV Puncture Site ABG pH ABG pCO2 ABG pO2 ABG PO2/FiO2 Ratio ABG HCO3 ABG O2 Saturation ABG O2 Content ABG Base Excess A-a Gradient Oxyhemoglobin Total Hemoglobin O2 Delivery Device O2 Liters/Min Vent Rate FiO2 Expiratory Pressure Inspiratory Pressure Sodium Potassium Chloride Carbon Dioxide Anion Gap BUN Creatinine Estim Creat Clear Calc Estimated GFR Glucose POC Capillary Glucose Calcium Magnesium Fluid Glucose 132 Fluid Total Protein 2.3 Fluid Albumin 1.4 Fluid LDH 64 Fluid Amylase 121 Fluid Triglycerides 14 08/16/25 08/16/25 08/17/25 16:41 20:26 03:52 WBC 4.7 RBC 3.65 L Hgb 9.7 L Hct 32.6 L MCV 89.3 MCH 26.6 MCHC 29.8 L RDW 15.9 H Plt Count 164 MPV 10.9 H Puncture Site ABG pH ABG pCO2 ABG pO2 ABG PO2/FiO2 Ratio ABG HCO3 ABG O2 Saturation ABG O2 Content ABG Base Excess A-a Gradient Oxyhemoglobin Total Hemoglobin O2 Delivery Device O2 Liters/Min Vent Rate FiO2 Expiratory Pressure Inspiratory Pressure Sodium 138 Potassium 4.8 Chloride 106 Carbon Dioxide 25 Anion Gap 7 BUN 65 H Creatinine 1.68 H Estim Creat Clear Calc 39 Estimated GFR 41 L Glucose 106 POC Capillary Glucose 150 H 186 H Calcium 8.7 Magnesium 1.9 Fluid Glucose Fluid Total Protein Fluid Albumin Fluid LDH Fluid Amylase Fluid Triglycerides 08/17/25 08/17/25 08/17/25 07:25 10:45 11:48 WBC RBC Hgb Hct MCV MCH MCHC RDW Plt Count MPV Puncture Site Left brachial ABG pH 7.296 L* ABG pCO2 51.3 H ABG pO2 68.5 L ABG PO2/FiO2 Ratio 2.45 ABG HCO3 24.4 ABG O2 Saturation 91.6 L ABG O2 Content 13.7 L ABG Base Excess -2.3 A-a Gradient 70.6 Oxyhemoglobin 92.4 Total Hemoglobin 10.5 L O2 Delivery Device Non-invasive vent O2 Liters/Min 0.0 Vent Rate 18 FiO2 28 Expiratory Pressure 6 Inspiratory Pressure 12 Sodium Potassium Chloride Carbon Dioxide Anion Gap BUN Creatinine Estim Creat Clear Calc Estimated GFR Glucose POC Capillary Glucose 98 91 Calcium Magnesium Fluid Glucose Fluid Total Protein Fluid Albumin Fluid LDH Fluid Amylase Fluid Triglycerides
--- NOTE | 2025-08-17 15:17 | P.PNIM_ITS ---
Progress Note: A&P Assessment and Plan (1) Congestive heart failure: Code(s): I50.9 - Heart failure, unspecified Status: Acute Assessment and Plan: Patient presents with SOB and found to have acute on chronic systolic and diastolic CHF. BNP 21K. CXR showing cardiomegaly, bilateral pleural effusion and congestion with possible pulmonary edema CT Chest showing cardiomegaly with severe multivessel coronary artery calcifications, R>L pleural effusions but no pulm consolidation or atelectasis, except for compression atelectasis of RLL due to the pleural effusion. Started on IV Lasix. Echo showing EF 40-45% with G3DD, mild concentric LVH, mild-moderate MR and small pericardial effusion. Renal function stable. Negative fluid balance. Weight down about 4kg Cardiology following. Changed to oral Lasix. Monitor urine output, daily weights and I/Os. (2) Acute on chronic respiratory failure with hypoxia and hypercapnia: Code(s): J96.21 - Acute and chronic respiratory failure with hypoxia; J96.22 - Acute and chronic respiratory failure with hypercapnia Status: Acute Assessment and Plan: ABG on admission 7.286/49/55 on 1L. Normally wears 3L O2 chronically. BiPAP started but only wearing intermittently ABG 7.296/51/68.5 on bipap; no initial ABG so not sure if this is improved. Adjust Bipap and repeat ABG. Speech therapy bedside evaluation recommends NPO until MBS can be performed. (3) COPD (chronic obstructive pulmonary disease): Code(s): J44.9 - Chronic obstructive pulmonary disease, unspecified Status: Acute Assessment and Plan: No wheezing but sounds tight. Stable on his 3L. Continue with home inhalers. Add Solu-Medrol (4) Pleural effusion: Code(s): J90 - Pleural effusion, not elsewhere classified Status: Acute Assessment and Plan: Patient with bilateral R>L pleural effusions. [place] related to CHF Thoracentesis 08/15 with removal of 1100mL of straw colored urine. Study results: Glucose normal. pH normal. <2000 RBC and 152 WBC with normal differential. TP 2.3. Alb 1.4. Studies showing transudative fluid c/w CHF. Diuretic therapy as above. (5) Altered mental status: Code(s): R41.82 - Altered mental status, unspecified Status: Acute Assessment and Plan: Patient remains confused felt related to hypercarbia. Not clear on his baseline mental function. Head CT showing no acute intracranial findings. No focal weakness. B12, folate and TSH normal. Vit D low so replacement ordered Repeat ABG noted. Check ammonia level. Follow (6) Paroxysmal atrial fibrillation: Code(s): I48.0 - Paroxysmal atrial fibrillation Status: Chronic Assessment and Plan: Patient with pAFib on Eliquis. Also has hx of DVT. Not on rate lowering agents. Maintaining sinus rhythm Continue Eliquis. Monitor on tele (7) Diabetic acidosis, type II: Code(s): E11.10 - Type 2 diabetes mellitus with ketoacidosis without coma Status: Acute Assessment and Plan: A1c 7.0%. The patient's blood glucose was reviewed on 08/17 Glucose remains well controlled. Continue AccuCheks covering with sliding scale. Hypoglycemia protocol available as needed. Hold Lantus since NPO. Continue to monitor. Add low dose maintenace fluid (8) Hypertension: Code(s): I10 - Essential (primary) hypertension Status: Acute Assessment and Plan: Patient's blood pressure was reviewed on 08/17 Blood pressure better controlled Will continue to monitor for now (9) CKD (chronic kidney disease): Code(s): N18.9 - Chronic kidney disease, unspecified Status: Acute Assessment and Plan: Baseline Cr around 1.4-1.8 range. Cr here 1.5-1.7 and stable on Lasix. Continue to monitor. Plan Code status - full DVT prophylaxis - Eliquis Subjective Date/time seen: 08/17/25 15:17 Interval history: 69yo male with CHF, COPD, HTN, Chronic resp failure on 3L, DM and bilateral BKAs here for shortness of breath. Patient more confused this morning and did agree to wear the bipap. Arouses easily. confused so hx unreliable. Review of Systems Review of Systems: ROS unobtainable: Yes unobtainable due to mental status Exam Narrative: AF 97.4 146/78 87 21 93% bipap Gen - NARD Chest - distant BS with decreased BS in the flanks. no wheezing. CV - RRR S1/S2. Telemetry showing no significant dysrhythmias Abd - Soft, NT/ND, Positive BS Ext -bilateral BKA. Neuro - arouses and becomes awake but confused. Slow to respond. Follows commands. Psych - dull affect Skin - Warm and dry. Objective Data Vital Signs Vital Signs: Vital Signs - 24 hr 08/16/25 15:56 08/16/25 16:00 08/16/25 18:00 Temperature 97.9 F Pulse Rate 83 85 86 Respiratory Rate 23 H Blood Pressure 139/71 Pulse Oximetry 94 Oxygen Delivery Oxygen Flow Rate 08/16/25 20:00 08/16/25 20:00 08/16/25 20:45 Temperature 98.0 F Pulse Rate 88 87 Respiratory Rate 22 H Blood Pressure 141/64 H Pulse Oximetry 94 94 Oxygen Delivery Nasal Cannula Oxygen Flow Rate 3 08/16/25 21:06 08/16/25 21:16 08/16/25 22:00 Temperature Pulse Rate 87 85 Respiratory Rate 18 Blood Pressure Pulse Oximetry 92 Oxygen Delivery BiPAP Oxygen Flow Rate 3 08/17/25 00:00 08/17/25 00:00 08/17/25 00:00 Temperature 97.5 F L Pulse Rate 85 86 Respiratory Rate 22 H Blood Pressure 131/65 Pulse Oximetry 93 93 Oxygen Delivery High Flow Nasal Cannula Oxygen Flow Rate 5 08/17/25 02:00 08/17/25 04:00 08/17/25 04:00 Temperature 96.5 F L Pulse Rate 87 85 87 Respiratory Rate 22 H Blood Pressure 142/77 H Pulse Oximetry 95 Oxygen Delivery Oxygen Flow Rate 08/17/25 04:10 08/17/25 06:00 08/17/25 07:57 Temperature Pulse Rate 86 Respiratory Rate Blood Pressure Pulse Oximetry 95 92 Oxygen Delivery High Flow Nasal Cannula High Flow Nasal Cannula Oxygen Flow Rate 5 5 08/17/25 08:00 08/17/25 08:00 08/17/25 08:00 Temperature 97.5 F L Pulse Rate 87 89 88 Respiratory Rate 22 H 23 H Blood Pressure 157/76 H Pulse Oximetry 93 92 Oxygen Delivery BiPAP Oxygen Flow Rate 08/17/25 09:40 08/17/25 10:00 08/17/25 11:12 Temperature 97.4 F L Pulse Rate 89 88 89 Respiratory Rate 23 H 22 H Blood Pressure 146/78 H Pulse Oximetry 92 94 Oxygen Delivery BiPAP Oxygen Flow Rate 08/17/25 12:00 08/17/25 12:00 08/17/25 12:12 Temperature Pulse Rate 87 87 87 Respiratory Rate 22 H 21 H Blood Pressure Pulse Oximetry 94 93 Oxygen Delivery BiPAP BiPAP Oxygen Flow Rate 08/17/25 14:00 Temperature Pulse Rate 87 Respiratory Rate Blood Pressure Pulse Oximetry Oxygen Delivery Oxygen Flow Rate Intake/Output Intake/Output: Intake & Output 08/14/25 08/15/25 08/16/25 08/17/25 23:59 23:59 23:59 23:59 Intake Total 726 240 0 Output Total 1550 900 250 Balance -931 -245 -106 Meds/Results Medications: Active Medications Generic Name Dose Route Start Last Admin Trade Name Freq PRN Reason Stop Dose Admin Amlodipine Besylate 5 mg 08/15/25 09:00 08/17/25 08:44 Amlodipine Besylate 5 Mg Tablet PO 5 mg DAILY KAYCE Administration Apixaban 5 mg 08/15/25 21:00 08/17/25 08:44 Apixaban 5 Mg Tablet PO 5 mg Q12HR KYACE Administration Dextrose 12.5 gm 08/15/25 06:34 Dextrose 50% 25 Gm/50 Ml Syringe IV PUSH PRN PRN Hypoglycemia Protocol Furosemide 40 mg 08/17/25 09:00 08/17/25 08:44 Furosemide 40 Mg Tablet PO 40 mg BID KAYCE Administration Glucagon 1 mg 08/15/25 06:34 Glucagon For Inj 1 Mg Vial IM PRN PRN Hypoglycemia Protocol Glucose 15 gm 08/15/25 06:34 Glucose Oral Gel 15 Gm Of Glucse In 37.5 Gm Tube PO PRN PRN Hypoglycemia Protocol Dextrose 1,000 mls @ 100 mls/hr 08/15/25 06:34 Dextrose 5% 1,000 Ml IVPB PRN PRN Hypoglycemia Protocol Insulin Aspart 2 - 5 units 08/15/25 08:00 08/17/25 12:19 Insulin Aspart (*Bkc) 100 Units/Ml SUB-Q Not Given TIDWM KAYCE Protocol Insulin Glargine 12 units 08/15/25 21:00 08/16/25 20:47 Insulin Glargine (*Bkc) 100 Units/Ml SUB-Q 12 units HS KAYCE Administration Perflutren Lipid Microsphere 0 ml 08/15/25 06:42 Perflutren Lipid Microspheres 1.5 Ml Vial Diluted To 10 Ml Total Volume IV PUSH 08/18/25 06:42 ONCE PRN adequate visualization Protocol Sertraline HCl 25 mg 08/15/25 09:00 08/17/25 08:44 Sertraline Hcl 25 Mg Tablet PO 25 mg DAILY KAYCE Administration Umeclidinium/Vilanterol 1 puff 08/15/25 08:00 08/17/25 07:56 Umeclidinium/Vilanterol 62.5-25 Mcg Ellipta INHALATION 1 puff DAILYRT KAYCE Administration Vitamin D 25 mcg 08/16/25 09:00 08/17/25 08:44 Cholecalciferol (Vitamin D3) 25 Mcg (1,000 Units) Tablet PO 25 mcg DAILY KAYCE Administration Radiology Results: ITS Impressions Chest CT 08/14/25 21:02 IMPRESSION: 1. Cardiomegaly with severe multivessel coronary artery calcifications. 2. Large right pleural effusion and moderate left pleural effusion due to congestive heart failure. 3. No evidence of pulmonary consolidation or atelectasis, except for compression atelectasis of right lower lobe due to the pleural effusion. Head CT 08/15/25 06:33 IMPRESSION: 1. No acute intracranial findings. Chest X-Ray 08/15/25 14:48 IMPRESSION: 1. No evidence of pneumothorax on the right side. Reduction in the amount of pleural effusion compared with CT scan. 2. Cardiomegaly. Patchy airspace opacity in the lower lung garcia, suspicious of pulmonary edema. Thoracentesis Ultrasound 08/15/25 15:06 IMPRESSION: 1. Successful ultrasound-guided thoracentesis yielding 1100 mL of clear straw- colored fluid. Labs Labs: Laboratory Results - last 24 hr 08/16/25 08/16/25 08/16/25 11:13 16:41 20:26 WBC RBC Hgb Hct MCV MCH MCHC RDW Plt Count MPV Puncture Site ABG pH ABG pCO2 ABG pO2 ABG PO2/FiO2 Ratio ABG HCO3 ABG O2 Saturation ABG O2 Content ABG Base Excess A-a Gradient Oxyhemoglobin Total Hemoglobin O2 Delivery Device O2 Liters/Min Vent Rate FiO2 Expiratory Pressure Inspiratory Pressure Sodium Potassium Chloride Carbon Dioxide Anion Gap BUN Creatinine Estim Creat Clear Calc Estimated GFR Glucose POC Capillary Glucose 150 H 186 H Calcium Magnesium 08/17/25 08/17/25 08/17/25 03:52 07:25 10:45 WBC 4.7 RBC 3.65 L Hgb 9.7 L Hct 32.6 L MCV 89.3 MCH 26.6 MCHC 29.8 L RDW 15.9 H Plt Count 164 MPV 10.9 H Puncture Site ABG pH ABG pCO2 ABG pO2 ABG PO2/FiO2 Ratio ABG HCO3 ABG O2 Saturation ABG O2 Content ABG Base Excess A-a Gradient Oxyhemoglobin Total Hemoglobin O2 Delivery Device O2 Liters/Min Vent Rate FiO2 Expiratory Pressure Inspiratory Pressure Sodium 138 Potassium 4.8 Chloride 106 Carbon Dioxide 25 Anion Gap 7 BUN 65 H Creatinine 1.68 H Estim Creat Clear Calc 39 Estimated GFR 41 L Glucose 106 POC Capillary Glucose 98 91 Calcium 8.7 Magnesium 1.9 08/17/25 11:48 WBC RBC Hgb Hct MCV MCH MCHC RDW Plt Count MPV Puncture Site Left brachial ABG pH 7.296 L* ABG pCO2 51.3 H ABG pO2 68.5 L ABG PO2/FiO2 Ratio 2.45 ABG HCO3 24.4 ABG O2 Saturation 91.6 L ABG O2 Content 13.7 L ABG Base Excess -2.3 A-a Gradient 70.6 Oxyhemoglobin 92.4 Total Hemoglobin 10.5 L O2 Delivery Device Non-invasive vent O2 Liters/Min 0.0 Vent Rate 18 FiO2 28 Expiratory Pressure 6 Inspiratory Pressure 12 Sodium Potassium Chloride Carbon Dioxide Anion Gap BUN Creatinine Estim Creat Clear Calc Estimated GFR Glucose POC Capillary Glucose Calcium Magnesium
[2025-08-17] MEDS: DEXTROSE 50% 25 GM/50 ML SYRINGE IV PUSH (16:03)
[2025-08-17] MEDS: DEXTROSE 5%/0.9% SOD CHL 1,000 ML 50 ML IV CONT (16:08)
[2025-08-17 16:54] LABS: Ammonia < 9 umol/L (9-30)
[2025-08-17 19:39] LABS: Ammonia < 9 umol/L (9-30)
[2025-08-18] VITALS (19 sets, daily range): BP systolic 144–164; BP diastolic 71–87; PULSE 80–90; RESP 14–25; TEMP 36.2–37.1; O2SAT 90–100
[2025-08-18 04:37] LABS: Hematocrit 32.4 % (42.0-52.0); Hemoglobin 9.9 g/dL (14.0-18.0); Mean Corpuscular HGB Conc 30.6 g/dl (32-36); Mean Corpuscular Hemoglobin 26.7 pg (26-34); Mean Corpuscular Volume 87.3 fl (80-100); Platelet Count Result 169 k/mm3 (150-375); Red Blood Count 3.71 M/mm3 (4.6-6.20); White Blood Count 2.6 K/mm3 (4.5-10.0)
[2025-08-18 04:57] LABS: Alanine Aminotransferase 19 U/L (6-50); Albumin Level 3.3 g/dL (3.5-5.1); Alkaline Phosphatase 123 U/L (38-126); Anion Gap 7 mmol/L (4-12); Aspartate Amino Transferase 26 U/L (17-59); Bilirubin,Total 0.3 mg/dL (0.2-1.3); Blood Urea Nitrogen 62 mg/dL (9-20); Calcium 8.7 mg/dL (8.4-10.2); Carbon Dioxide 25 mmol/L (22-30); Chloride 107 mmol/L (98-107); Estimated CRCL calculation 40 ml/min; Estimated Glomerular Filt Rate 42; Glucose 145 mg/dL (65-110); Potassium 5.0 mmol/L (3.4-5.0); Sodium 139 mmol/L (137-145); Total Protein 6.9 g/dL (6.3-8.2)
[2025-08-18] MEDS: UMECLIDINIUM/VILANTEROL 62.5-25 MCG ELLIPTA 1 PUFF INHALATION (07:21)
--- NOTE | 2025-08-18 08:14 | PC.NURSE ---
Remains very lethargic, withdrawn this am. Awakened by verbal command easily. Unable or or unwilling to cooperate when asked questions at this time. Oriented to self only. Remains on Bipap at this time, in no acute distress. athletic monitor remains on and functioning at this time. VSS.
--- NOTE | 2025-08-18 09:57 | PCPTNOTE ---
Attempted PT evaluation, pt refused just shaking his head no. Nursing aware. Will follow.
--- NOTE | 2025-08-18 10:31 | PC.NURSE ---
Patient refuses to cooperate with medication administration this morning. This RN tried to call a family member to discuss the patient's lack of cooperation and what appears to be failure to thrive at this time, however there was no answer. This RN cared for this patient on 08/17/25 and this shift and has seen minimal improvement. He remains on BIPAP machine at this time. Will not work with therapies and refuses to take medications randomly this admission.
--- NOTE | 2025-08-18 11:01 | PC.NURSE ---
This RN discussed with MD patients inability to cooperate with care at this time.
[2025-08-18] MEDS: DEXTROSE 5%/0.9% SOD CHL 1,000 ML 50 ML IV CONT (11:58)
[2025-08-18] MEDS: FUROSEMIDE 40 MG TABLET PO ×2 (12:04→17:24)
[2025-08-18] MEDS: SERTRALINE HCL 25 MG TABLET PO (12:04)
[2025-08-18] MEDS: APIXABAN 5 MG TABLET PO ×2 (12:04→20:33)
[2025-08-18] MEDS: CHOLECALCIFEROL (VITAMIN D3) 25 MCG (1,000 UNITS) TABLET PO (12:05)
--- NOTE | 2025-08-18 12:05 | PC.NURSE ---
Patient is alert and awake. Placed on 5L/HFNC. Given ice chips to moisten mouth. Tolerated well. Is now agreeable to take all morning medications. This RN discussed with MD and orders placed to give medications at this time. Patient states that he is feeling a little better and willing to have a swallow evaluation as he states he is feeling hungry at this time. He is oriented to self, place and year at this time. Confused to month. No acute distress noted. Oxygen saturation on 5L/HFNC is 98%. Heart rate remains at 87, NSR.
--- NOTE | 2025-08-18 14:36 | PCSTNOTE ---
Please refer to the Modified Barium Swallow Evaluation in the EMR. Pt is a 69 year old male who presents this admission for an increase in shortness of breath. Pt with a notable past medical history of CHF and bilateral BKA. A MBS was recommended based on a BSE. The patient was presented in a lateral view and presented the following consistencies: 5cc/tsp thin liquid barium via spoon, 5cc/tsp thin liquid barium via open cup, 5cc thin liquid barium via straw, 5cc pureed consistency, alex[place] cracker via finger. Oral stage: Oral preparation and transit were timely for all consistencies. The patient required extra time with mastication of the cracker consistency. Pharyngeal stage: All consistencies presented within functional limits with no material entering the airway. Recommend 1. Level 7/Regular with Level 0/Thin liquids 2. Sit in upright position for all meals
--- NOTE | 2025-08-18 17:03 | P.PNIM_ITS ---
Progress Note: A&P Assessment and Plan (1) Congestive heart failure: Code(s): I50.9 - Heart failure, unspecified Status: Acute Assessment and Plan: Patient presents with SOB and found to have acute on chronic systolic and diastolic CHF. BNP 21K. CXR showing cardiomegaly, bilateral pleural effusion and congestion with possible pulmonary edema CT Chest showing cardiomegaly with severe multivessel coronary artery calcifications, R>L pleural effusions but no pulm consolidation or atelectasis, except for compression atelectasis of RLL due to the pleural effusion. Started on IV Lasix. Echo showing EF 40-45% with G3DD, mild concentric LVH, mild-moderate MR and small pericardial effusion. Renal function stable. Negative fluid balance. Weight down about 4kg Cardiology following. Changed to oral Lasix. Monitor urine output, daily weights and I/Os. (2) Acute on chronic respiratory failure with hypoxia and hypercapnia: Code(s): J96.21 - Acute and chronic respiratory failure with hypoxia; J96.22 - Acute and chronic respiratory failure with hypercapnia Status: Acute Assessment and Plan: ABG on admission 7.286/49/55 on 1L. Normally wears 3L O2 chronically. BiPAP started but only wearing intermittently ABG 7.296/51/68.5 on bipap yesterday; no initial ABG so not sure if this is improved. Has improvement then refuses BiPAP. Speech therapy bedside evaluation recommends NPO until MBS can be performed so maybe aspirating. Called family listed in chart but no answer. Unable to leave message (3) COPD (chronic obstructive pulmonary disease): Code(s): J44.9 - Chronic obstructive pulmonary disease, unspecified Status: Acute Assessment and Plan: No wheezing but sounds distant Continue Solu-Medrol Continue with home inhalers. (4) Pleural effusion: Code(s): J90 - Pleural effusion, not elsewhere classified Status: Acute Assessment and Plan: Patient with bilateral R>L pleural effusions. [place] related to CHF Thoracentesis 08/15 with removal of 1100mL of straw colored urine. Study results: Glucose normal. pH normal. <2000 RBC and 152 WBC with normal differential. TP 2.3. Alb 1.4. Studies showing transudative fluid c/w CHF. Diuretic therapy as above. He is refusing meds as well (5) Altered mental status: Code(s): R41.82 - Altered mental status, unspecified Status: Acute Assessment and Plan: Patient remains confused felt related to hypercarbia. Not clear on his baseline mental function. Head CT showing no acute intracranial findings. No focal weakness. B12, folate and TSH normal. Ammonia <9. Vit D low so replacement ordered Continue to try to improve hypercarbia. Follow (6) Paroxysmal atrial fibrillation: Code(s): I48.0 - Paroxysmal atrial fibrillation Status: Chronic Assessment and Plan: Patient with pAFib on Eliquis. Also has hx of DVT. Not on rate lowering agents. Maintaining sinus rhythm Continue Eliquis. Monitor on tele (7) Diabetic acidosis, type II: Code(s): E11.10 - Type 2 diabetes mellitus with ketoacidosis without coma Status: Acute Assessment and Plan: A1c 7.0%. The patient's blood glucose was reviewed on 08/18 Glucose mildly elevated due to steroids. Continue AccuCheks covering with sliding scale. Hypoglycemia protocol available as needed. Holding Lantus since NPO. Continue to monitor. Continue low dose maintenance fluid (8) Hypertension: Code(s): I10 - Essential (primary) hypertension Status: Acute Assessment and Plan: Patient's blood pressure was reviewed on 08/18 Blood pressure stable Will continue to monitor for now (9) CKD (chronic kidney disease): Code(s): N18.9 - Chronic kidney disease, unspecified Status: Acute Assessment and Plan: Baseline Cr around 1.4-1.8 range. Cr here 1.5-1.7 and stable on Lasix. Continue to monitor. Plan Code status - full DVT prophylaxis - Eliquis Subjective Date/time seen: 08/18/25 17:03 Interval history: 69yo male with CHF, COPD, HTN, Chronic resp failure on 3L, DM and bilateral BKAs here for shortness of breath. Noncompliant with care overnight but able to get the BiPAP on him around 2am. He arouses but unable to provide hx. Review of Systems Review of Systems: ROS unobtainable: Yes unobtainable due to mental status Exam Narrative: AF 97.8 159/85 88 20 98% HFNC Gen - NARD with bipap in place at the time of this visit Chest - distant BS CV - RRR S1/S2. Telemetry showing no significant dysrhythmias Abd - Soft, NT/ND, Positive BS Ext -bilateral BKA. Neuro - arouses with garbled speech. Psych - dificult to assess Skin - Warm and dry. Objective Data Vital Signs Vital Signs: Vital Signs - 24 hr 08/17/25 18:00 08/17/25 19:33 08/17/25 20:00 Temperature 98.0 F Pulse Rate 88 89 Respiratory Rate 22 H Blood Pressure 147/76 H Pulse Oximetry 94 95 Oxygen Delivery BiPAP Oxygen Flow Rate Fraction of Inspired Oxygen 08/17/25 20:00 08/17/25 20:11 08/17/25 21:24 Temperature Pulse Rate 88 88 Respiratory Rate 22 H Blood Pressure Pulse Oximetry 94 93 Oxygen Delivery BiPAP High Flow Nasal Cannula Oxygen Flow Rate 5 Fraction of Inspired Oxygen 08/17/25 22:00 08/18/25 00:00 08/18/25 00:00 Temperature Pulse Rate 88 86 Respiratory Rate Blood Pressure Pulse Oximetry 90 Oxygen Delivery High Flow Nasal Cannula Oxygen Flow Rate 3 Fraction of Inspired Oxygen 08/18/25 00:00 08/18/25 01:00 08/18/25 01:56 Temperature 98.3 F Pulse Rate 88 87 Respiratory Rate 20 25 H Blood Pressure 152/77 H Pulse Oximetry 95 96 100 Oxygen Delivery High Flow Therapy with Na BiPAP Oxygen Flow Rate 5 Fraction of Inspired Oxygen 08/18/25 02:00 08/18/25 04:00 08/18/25 04:00 Temperature 97.6 F Pulse Rate 88 85 Respiratory Rate 21 H Blood Pressure 151/75 H Pulse Oximetry 94 94 Oxygen Delivery BiPAP Oxygen Flow Rate Fraction of Inspired Oxygen 08/18/25 04:00 08/18/25 06:00 08/18/25 07:21 Temperature Pulse Rate 85 80 82 Respiratory Rate 22 H Blood Pressure Pulse Oximetry 97 Oxygen Delivery BiPAP Oxygen Flow Rate Fraction of Inspired Oxygen 08/18/25 07:25 08/18/25 07:45 08/18/25 08:00 Temperature 97.5 F L Pulse Rate 87 80 80 Respiratory Rate 24 H 22 H 22 H Blood Pressure 154/79 H Pulse Oximetry 97 97 Oxygen Delivery BiPAP Oxygen Flow Rate Fraction of Inspired Oxygen 08/18/25 08:00 08/18/25 08:00 08/18/25 10:00 Temperature Pulse Rate 82 80 83 Respiratory Rate Blood Pressure Pulse Oximetry Oxygen Delivery Oxygen Flow Rate Fraction of Inspired Oxygen 08/18/25 11:37 08/18/25 12:00 08/18/25 12:00 Temperature 97.1 F L Pulse Rate 87 87 88 Respiratory Rate 20 20 Blood Pressure 164/87 H Pulse Oximetry 98 98 Oxygen Delivery High Flow Nasal Cannula Oxygen Flow Rate 5 Fraction of Inspired Oxygen 28 08/18/25 15:27 Temperature 97.8 F Pulse Rate 88 Respiratory Rate 20 Blood Pressure 159/85 H Pulse Oximetry 98 Oxygen Delivery Oxygen Flow Rate Fraction of Inspired Oxygen Intake/Output Intake/Output: Intake & Output 08/15/25 08/16/25 08/17/25 08/18/25 23:59 23:59 23:59 23:59 Intake Total 726 240 120 991.7 Output Total 1550 900 500 600 Balance -824 -660 -380 391.7 Meds/Results Medications: Active Medications Generic Name Dose Route Start Last Admin Trade Name Freq PRN Reason Stop Dose Admin Amlodipine Besylate 5 mg 08/15/25 09:00 08/18/25 10:29 Amlodipine Besylate 5 Mg Tablet PO Not Given DAILY KAYCE Apixaban 5 mg 08/15/25 21:00 08/18/25 10:29 Apixaban 5 Mg Tablet PO Not Given Q12HR KAYCE Dextrose 12.5 gm 08/15/25 06:34 08/17/25 16:03 Dextrose 50% 25 Gm/50 Ml Syringe IV PUSH 12.5 gm PRN PRN Administration Hypoglycemia Protocol Furosemide 40 mg 08/17/25 09:00 08/18/25 10:29 Furosemide 40 Mg Tablet PO Not Given BID KAYCE Glucagon 1 mg 08/15/25 06:34 Glucagon For Inj 1 Mg Vial IM PRN PRN Hypoglycemia Protocol Glucose 15 gm 08/15/25 06:34 Glucose Oral Gel 15 Gm Of Glucse In 37.5 Gm Tube PO PRN PRN Hypoglycemia Protocol Dextrose 1,000 mls @ 100 mls/hr 08/15/25 06:34 Dextrose 5% 1,000 Ml IVPB PRN PRN Hypoglycemia Protocol Dextrose/Sodium Chloride 1,000 mls @ 50 mls/hr 08/17/25 15:45 08/18/25 11:58 Dextrose 5% Sodium Chloride 0.9% IV CONT 50 mls/hr .Q20H KAYCE Administration Insulin Aspart 2 - 5 units 08/15/25 08:00 08/18/25 11:40 Insulin Aspart (*Bkc) 100 Units/Ml SUB-Q Not Given TIDWM [facility] Protocol Insulin Glargine 12 units 08/15/25 21:00 08/16/25 20:47 Insulin Glargine (*Bkc) 100 Units/Ml SUB-Q 12 units On Hold: 08/17/25 16:39 HS KAYCE Administration Methylprednisolone Sodium Succinate 60 mg 08/17/25 18:00 08/18/25 11:57 Methylprednisolone Sod Succ 125 Mg Vial IV PUSH 60 mg Q6HR KAYCE Administration Sertraline HCl 25 mg 08/15/25 09:00 08/18/25 10:29 Sertraline Hcl 25 Mg Tablet PO Not Given DAILY KAYCE Umeclidinium/Vilanterol 1 puff 08/15/25 08:00 08/18/25 07:21 Umeclidinium/Vilanterol 62.5-25 Mcg Ellipta INHALATION 1 puff DAILYRT KAYCE Administration Vitamin D 25 mcg 08/16/25 09:00 08/18/25 10:29 Cholecalciferol (Vitamin D3) 25 Mcg (1,000 Units) Tablet PO Not Given DAILY KAYCE Radiology Results: ITS Impressions Chest CT 08/14/25 21:02 IMPRESSION: 1. Cardiomegaly with severe multivessel coronary artery calcifications. 2. Large right pleural effusion and moderate left pleural effusion due to congestive heart failure. 3. No evidence of pulmonary consolidation or atelectasis, except for compression atelectasis of right lower lobe due to the pleural effusion. Head CT 08/15/25 06:33 IMPRESSION: 1. No acute intracranial findings. Chest X-Ray 08/15/25 14:48 IMPRESSION: 1. No evidence of pneumothorax on the right side. Reduction in the amount of pleural effusion compared with CT scan. 2. Cardiomegaly. Patchy airspace opacity in the lower lung garcia, suspicious of pulmonary edema. Thoracentesis Ultrasound 08/15/25 15:06 IMPRESSION: 1. Successful ultrasound-guided thoracentesis yielding 1100 mL of clear straw- colored fluid. Modified Barium Swallow 08/18/25 14:19 IMPRESSION: Patient tolerated regular consistency oral feedings in the upright position. Please correlate with speech pathologist findings and specific feeding recommendations. Labs Labs: Laboratory Results - last 24 hr 08/16/25 08/17/25 08/17/25 11:13 19:12 20:06 WBC RBC Hgb Hct MCV MCH MCHC RDW Plt Count MPV ABG O2 Content Not Reportable Oxyhemoglobin Not Reportable Total Hemoglobin Not Reportable Sodium Potassium Chloride Carbon Dioxide Anion Gap BUN Creatinine Estim Creat Clear Calc Estimated GFR Glucose POC Capillary Glucose 101 Calcium Total Bilirubin AST ALT Alkaline Phosphatase Ammonia < 9 L Total Protein Albumin 08/17/25 08/18/25 08/18/25 23:21 03:43 07:01 WBC 2.6 L RBC 3.71 L Hgb 9.9 L Hct 32.4 L MCV 87.3 MCH 26.7 MCHC 30.6 L RDW 15.7 H Plt Count 169 MPV 11.0 H ABG O2 Content Oxyhemoglobin Total Hemoglobin Sodium 139 Potassium 5.0 Chloride 107 Carbon Dioxide 25 Anion Gap 7 BUN 62 H Creatinine 1.65 H Estim Creat Clear Calc 40 Estimated GFR 42 L Glucose 145 H POC Capillary Glucose 131 H 179 H Calcium 8.7 Total Bilirubin 0.3 AST 26 ALT 19 Alkaline Phosphatase 123 Ammonia Total Protein 6.9 Albumin 3.3 L 08/18/25 08/18/25 11:12 15:00 WBC RBC Hgb Hct MCV MCH MCHC RDW Plt Count MPV ABG O2 Content Oxyhemoglobin Total Hemoglobin Sodium Potassium Chloride Carbon Dioxide Anion Gap BUN Creatinine Estim Creat Clear Calc Estimated GFR Glucose POC Capillary Glucose 177 H 202 H Calcium Total Bilirubin AST ALT Alkaline Phosphatase Ammonia Total Protein Albumin
[2025-08-18] MEDS: INSULIN ASPART (*BKC) 100 UNITS/ML SUB-Q (17:26)
[2025-08-19] VITALS (19 sets, daily range): BP systolic 143–153; BP diastolic 73–81; PULSE 81–90; RESP 14–22; TEMP 36.6–36.8; O2SAT 91–97
[2025-08-19 04:39] LABS: Hematocrit 32.4 % (42.0-52.0); Hemoglobin 9.8 g/dL (14.0-18.0); Immature Granulocyte Percent A 0.3 % (0-0.5); Lymphocytes Absolute Auto 0.14 K/mm3 (0.9-3.2); Mean Corpuscular HGB Conc 30.2 g/dl (32-36); Mean Corpuscular Hemoglobin 26.2 pg (26-34); Mean Corpuscular Volume 86.6 fl (80-100); Nucleated Red Blood Cells Absolute Auto 0.000 K/mm3 (0.0-0.012); Nucleated Red Blood Cells Perc 0.0 % (0.0-0.2); Platelet Count Result 195 k/mm3 (150-375); Red Blood Count 3.74 M/mm3 (4.6-6.20); White Blood Count 3.4 K/mm3 (4.5-10.0)
[2025-08-19 05:08] LABS: Albumin Level 3.3 g/dL (3.5-5.1); Anion Gap 6 mmol/L (4-12); Blood Urea Nitrogen 71 mg/dL (9-20); Calcium 8.9 mg/dL (8.4-10.2); Carbon Dioxide 26 mmol/L (22-30); Chloride 105 mmol/L (98-107); Estimated CRCL calculation 39 ml/min; Estimated Glomerular Filt Rate 41; Glucose 204 mg/dL (65-110); Magnesium 1.7 mg/dL (1.6-2.3); Sodium 137 mmol/L (137-145)
[2025-08-19 05:16] LABS: Potassium 5.0 mmol/L (3.4-5.0)
[2025-08-19 05:29] LABS: Anisocytosis 1+; Hypochromasia 1+; Ovalocytes 1+; Schistocytes None Seen
[2025-08-19] MEDS: INSULIN ASPART (*BKC) 100 UNITS/ML SUB-Q ×3 (08:11→17:07)
[2025-08-19] MEDS: UMECLIDINIUM/VILANTEROL 62.5-25 MCG ELLIPTA 1 PUFF INHALATION (08:11)
[2025-08-19] MEDS: SERTRALINE HCL 25 MG TABLET PO (08:12)
[2025-08-19] MEDS: APIXABAN 5 MG TABLET PO ×2 (08:12→20:51)
[2025-08-19] MEDS: CHOLECALCIFEROL (VITAMIN D3) 25 MCG (1,000 UNITS) TABLET PO (08:12)
[2025-08-19] MEDS: FUROSEMIDE 40 MG TABLET PO ×2 (08:12→17:06)
--- NOTE | 2025-08-19 13:52 | P.PNIM_ITS ---
Progress Note: A&P Assessment and Plan (1) Congestive heart failure: Code(s): I50.9 - Heart failure, unspecified Status: Acute Assessment and Plan: Patient presents with SOB and found to have acute on chronic systolic and diastolic CHF. BNP 21K. CXR showing cardiomegaly, bilateral pleural effusion and congestion with possible pulmonary edema CT Chest showing cardiomegaly with severe multivessel coronary artery calcifications, R>L pleural effusions but no pulm consolidation or atelectasis, except for compression atelectasis of RLL due to the pleural effusion. Started on IV Lasix. Echo showing EF 40-45% with G3DD, mild concentric LVH, mild-moderate MR and small pericardial effusion. Renal function stable. Negative fluid balance. Weight down about 4kg Cardiology following. Changed to oral Lasix. Monitor urine output, daily weights and I/Os. (2) Acute on chronic respiratory failure with hypoxia and hypercapnia: Code(s): J96.21 - Acute and chronic respiratory failure with hypoxia; J96.22 - Acute and chronic respiratory failure with hypercapnia Status: Acute Assessment and Plan: ABG on admission 7.286/49/55 on 1L. Normally wears 3L O2 chronically. BiPAP started but only wearing intermittently that correlates with his lack of improvement. MBS showing patient can swallow safely Spoke with dtr in the room and options discussed including hospice. Explained that once patient feels better, he refuses treatment and only able to provide ca re is when he is obtunded. She is wanting the patient to be made comfortable. Will have care coordination consulted to help [facility]. (3) COPD (chronic obstructive pulmonary disease): Code(s): J44.9 - Chronic obstructive pulmonary disease, unspecified Status: Acute Assessment and Plan: No wheezing but sounds distant Continue Solu-Medrol Continue with home inhalers. (4) Pleural effusion: Code(s): J90 - Pleural effusion, not elsewhere classified Status: Acute Assessment and Plan: Patient with bilateral R>L pleural effusions. [place] related to CHF Thoracentesis 08/15 with removal of 1100mL of straw colored urine. Study results: Glucose normal. pH normal. <2000 RBC and 152 WBC with normal differential. TP 2.3. Alb 1.4. Studies showing transudative fluid c/w CHF. Diuretic therapy as above. He is refusing meds as well (5) Altered mental status: Code(s): R41.82 - Altered mental status, unspecified Status: Acute Assessment and Plan: Patient remains confused felt related to hypercarbia. Not clear on his baseline mental function. Head CT showing no acute intracranial findings. No focal weakness. B12, folate and TSH normal. Ammonia <9. Vit D low so replacement ordered Plan for hospice care. Follow (6) Paroxysmal atrial fibrillation: Code(s): I48.0 - Paroxysmal atrial fibrillation Status: Chronic Assessment and Plan: Patient with pAFib on Eliquis. Also has hx of DVT. Not on rate lowering agents. Maintaining sinus rhythm Continue Eliquis. Monitor on tele (7) Diabetic acidosis, type II: Code(s): E11.10 - Type 2 diabetes mellitus with ketoacidosis without coma Status: Acute Assessment and Plan: A1c 7.0%. The patient's blood glucose was reviewed on 08/19 Glucose elevated due to steroids. Continue AccuCheks covering with sliding scale. Hypoglycemia protocol available as needed. Resume Lantus. Continue to monitor. (8) Hypertension: Code(s): I10 - Essential (primary) hypertension Status: Acute Assessment and Plan: Patient's blood pressure was reviewed on 08/19 Blood pressure stable Will continue to monitor for now (9) CKD (chronic kidney disease): Code(s): N18.9 - Chronic kidney disease, unspecified Status: Acute Assessment and Plan: Baseline Cr around 1.4-1.8 range. Cr here 1.5-1.7 and stable on Lasix. Continue to monitor. Plan Code status - DNR DVT prophylaxis - Eliquis Subjective Date/time seen: 08/19/25 13:52 Interval history: 69yo male with CHF, COPD, HTN, Chronic resp failure on 3L, DM and bilateral BKAs here for shortness of breath. Patient remains somnolent and confused. Review of Systems Review of Systems: ROS unobtainable: Yes unobtainable due to mental status Exam Narrative: AF 98.0 153/80 86 20 96% 4L HFNC Gen - NARD Chest - mild coarse BS anteriorly. Nml RR CV - RRR S1/S2. Telemetry showing no significant dysrhythmias Abd - Soft, NT/ND, Positive BS Ext -bilateral BKA. Neuro - arouses with garbled speech. Psych - difficult to assess Skin - Warm and dry. Objective Data Vital Signs Vital Signs: Vital Signs - 24 hr 08/18/25 15:27 08/18/25 17:00 08/18/25 17:00 Temperature 97.8 F Pulse Rate 88 90 88 Respiratory Rate 20 20 Blood Pressure 159/85 H Pulse Oximetry 98 98 Oxygen Delivery BiPAP Oxygen Flow Rate Fraction of Inspired Oxygen 28 08/18/25 18:00 08/18/25 20:00 08/18/25 20:00 Temperature 98.2 F Pulse Rate 87 89 Respiratory Rate 18 Blood Pressure 147/75 H Pulse Oximetry 97 95 Oxygen Delivery High Flow Nasal Cannula Oxygen Flow Rate 5 Fraction of Inspired Oxygen 08/18/25 20:00 08/18/25 22:00 08/18/25 23:57 Temperature 98.8 F Pulse Rate 89 86 87 Respiratory Rate 14 Blood Pressure 144/71 H Pulse Oximetry 93 Oxygen Delivery Oxygen Flow Rate Fraction of Inspired Oxygen 08/19/25 00:00 08/19/25 00:00 08/19/25 02:00 Temperature Pulse Rate 84 86 Respiratory Rate Blood Pressure Pulse Oximetry 92 Oxygen Delivery High Flow Nasal Cannula Oxygen Flow Rate 5 Fraction of Inspired Oxygen 08/19/25 03:56 08/19/25 04:00 08/19/25 04:00 Temperature 97.8 F Pulse Rate 86 86 Respiratory Rate 14 Blood Pressure 150/81 H Pulse Oximetry 96 96 Oxygen Delivery High Flow Nasal Cannula Oxygen Flow Rate 5 Fraction of Inspired Oxygen 08/19/25 06:00 08/19/25 08:00 08/19/25 08:00 Temperature Pulse Rate 84 84 90 Respiratory Rate 14 Blood Pressure Pulse Oximetry 96 Oxygen Delivery High Flow Nasal Cannula Oxygen Flow Rate 5 Fraction of Inspired Oxygen 28 08/19/25 08:00 08/19/25 08:06 08/19/25 08:16 Temperature 98.2 F Pulse Rate 81 85 89 Respiratory Rate 20 20 Blood Pressure 147/76 H Pulse Oximetry 95 97 Oxygen Delivery High Flow Nasal Cannula Oxygen Flow Rate 5 Fraction of Inspired Oxygen 08/19/25 08:16 08/19/25 09:45 08/19/25 10:00 Temperature Pulse Rate 89 90 Respiratory Rate 20 Blood Pressure Pulse Oximetry Oxygen Delivery High Flow Therapy with Na Oxygen Flow Rate 4 Fraction of Inspired Oxygen 08/19/25 10:32 08/19/25 11:57 08/19/25 11:57 Temperature Pulse Rate 90 87 Respiratory Rate 20 Blood Pressure Pulse Oximetry 97 Oxygen Delivery Nasal Cannula High Flow Nasal Cannula Oxygen Flow Rate 4 4 Fraction of Inspired Oxygen 28 08/19/25 12:08 Temperature 98.0 F Pulse Rate 86 Respiratory Rate 20 Blood Pressure 153/80 H Pulse Oximetry 96 Oxygen Delivery Oxygen Flow Rate Fraction of Inspired Oxygen Intake/Output Intake/Output: Intake & Output 08/16/25 08/17/25 08/18/25 08/19/25 23:59 23:59 23:59 23:59 Intake Total 690 236 9582.7 600 Output Total 900 500 600 Balance -660 -380 511.7 600 Meds/Results Medications: Active Medications Generic Name Dose Route Start Last Admin Trade Name Freq PRN Reason Stop Dose Admin Albuterol/Ipratropium 3 ml 08/19/25 20:00 Ipratropium 0.5 Mg/Albuterol Sulfate 2.5 Mg (Base) Ampul.Neb 3 Ml INHALATION Q6HRT [facility] Amlodipine Besylate 5 mg 08/15/25 09:00 08/19/25 08:12 Amlodipine Besylate 5 Mg Tablet PO 5 mg DAILY KAYCE Administration Apixaban 5 mg 08/15/25 21:00 08/19/25 08:12 Apixaban 5 Mg Tablet PO 5 mg Q12HR KAYCE Administration Dextrose 12.5 gm 08/15/25 06:34 08/17/25 16:03 Dextrose 50% 25 Gm/50 Ml Syringe IV PUSH 12.5 gm PRN PRN Administration Hypoglycemia Protocol Furosemide 40 mg 08/17/25 09:00 08/19/25 08:12 Furosemide 40 Mg Tablet PO 40 mg BID KAYCE Administration Glucagon 1 mg 08/15/25 06:34 Glucagon For Inj 1 Mg Vial IM PRN PRN Hypoglycemia Protocol Glucose 15 gm 08/15/25 06:34 Glucose Oral Gel 15 Gm Of Glucse In 37.5 Gm Tube PO PRN PRN Hypoglycemia Protocol Dextrose 1,000 mls @ 100 mls/hr 08/15/25 06:34 Dextrose 5% 1,000 Ml IVPB PRN PRN Hypoglycemia Protocol Insulin Aspart 2 - 5 units 08/15/25 08:00 08/19/25 11:24 Insulin Aspart (*Bkc) 100 Units/Ml SUB-Q 3 units TIDWM KAYCE Administration Protocol Insulin Glargine 12 units 08/15/25 21:00 08/16/25 20:47 Insulin Glargine (*Bkc) 100 Units/Ml SUB-Q 12 units On Hold: 08/17/25 16:39 HS KAYCE Administration Methylprednisolone Sodium Succinate 60 mg 08/17/25 18:00 08/19/25 11:20 Methylprednisolone Sod Succ 125 Mg Vial IV PUSH 60 mg Q6HR KAYCE Administration Sertraline HCl 25 mg 08/15/25 09:00 08/19/25 08:12 Sertraline Hcl 25 Mg Tablet PO 25 mg DAILY KAYCE Administration Umeclidinium/Vilanterol 1 puff 08/15/25 08:00 08/19/25 08:11 Umeclidinium/Vilanterol 62.5-25 Mcg Ellipta INHALATION 1 puff On Hold: 08/19/25 08:34 DAILYRT KAYCE Administration Vitamin D 25 mcg 08/16/25 09:00 08/19/25 08:12 Cholecalciferol (Vitamin D3) 25 Mcg (1,000 Units) Tablet PO 25 mcg DAILY KAYCE Administration Radiology Results: ITS Impressions Chest CT 08/14/25 21:02 IMPRESSION: 1. Cardiomegaly with severe multivessel coronary artery calcifications. 2. Large right pleural effusion and moderate left pleural effusion due to congestive heart failure. 3. No evidence of pulmonary consolidation or atelectasis, except for compression atelectasis of right lower lobe due to the pleural effusion. Head CT 08/15/25 06:33 IMPRESSION: 1. No acute intracranial findings. Chest X-Ray 08/15/25 14:48 IMPRESSION: 1. No evidence of pneumothorax on the right side. Reduction in the amount of pleural effusion compared with CT scan. 2. Cardiomegaly. Patchy airspace opacity in the lower lung garcia, suspicious of pulmonary edema. Thoracentesis Ultrasound 08/15/25 15:06 IMPRESSION: 1. Successful ultrasound-guided thoracentesis yielding 1100 mL of clear straw- colored fluid. Modified Barium Swallow 08/18/25 14:19 IMPRESSION: Patient tolerated regular consistency oral feedings in the upright position. Please correlate with speech pathologist findings and specific feeding recommendations. Labs Labs: Laboratory Results - last 24 hr 08/18/25 08/18/25 08/19/25 15:00 20:23 03:47 WBC 3.4 L RBC 3.74 L Hgb 9.8 L Hct 32.4 L MCV 86.6 MCH 26.2 MCHC 30.2 L RDW 15.5 H Plt Count 195 MPV 10.9 H Immature Gran % (Auto) 0.3 Neut % (Auto) 93.6 H Lymph % (Auto) 4.1 L [place] % (Auto) 2.0 L Eos % (Auto) 0.0 Baso % (Auto) 0.0 L Lymph # (Auto) 0.14 L [place] # (Auto) 0.1 Eos # (Auto) 0.0 Baso # (Auto) 0.0 Abs Immat Gran (auto) 0.01 Absolute Neuts (auto) 3.2 Absolute Nucleated RBC 0.000 Band Neutrophils % Not Reportable Nucleated RBC % 0.0 Platelet Estimate Adequate Hypochromasia 1+ Anisocytosis 1+ Ovalocytes 1+ Schistocytes None seen Sodium 137 Potassium 5.0 Chloride 105 Carbon Dioxide 26 Anion Gap 6 BUN 71 H Creatinine 1.68 H Estim Creat Clear Calc 39 Estimated GFR 41 L Glucose 204 H POC Capillary Glucose 202 H 224 H Calcium 8.9 Phosphorus 5.2 H Magnesium 1.7 Albumin 3.3 L 08/19/25 08/19/25 07:26 10:53 WBC RBC Hgb Hct MCV MCH MCHC RDW Plt Count MPV Immature Gran % (Auto) Neut % (Auto) Lymph % (Auto) [place] % (Auto) Eos % (Auto) Baso % (Auto) Lymph # (Auto) [place] # (Auto) Eos # (Auto) Baso # (Auto) Abs Immat Gran (auto) Absolute Neuts (auto) Absolute Nucleated RBC Band Neutrophils % Nucleated RBC % Platelet Estimate Hypochromasia Anisocytosis Ovalocytes Schistocytes Sodium Potassium Chloride Carbon Dioxide Anion Gap BUN Creatinine Estim Creat Clear Calc Estimated GFR Glucose POC Capillary Glucose 202 H 267 H Calcium Phosphorus Magnesium Albumin
[2025-08-19] MEDS: IPRATROPIUM 0.5 MG/ALBUTEROL SULFATE 2.5 MG (BASE) AMPUL.NEB 3 ML INHALATION (20:16)
[2025-08-19] MEDS: INSULIN GLARGINE (*BKC) 100 UNITS/ML 12 UNITS SUB-Q (20:51)
[2025-08-20] VITALS (20 sets, daily range): BP systolic 149–165; BP diastolic 71–88; PULSE 81–96; RESP 16–27; TEMP 36.3–36.8; O2SAT 85–99
[2025-08-20] MEDS: IPRATROPIUM 0.5 MG/ALBUTEROL SULFATE 2.5 MG (BASE) AMPUL.NEB 3 ML INHALATION ×3 (07:57→20:19)
[2025-08-20] MEDS: APIXABAN 5 MG TABLET PO ×2 (08:42→22:19)
[2025-08-20] MEDS: SERTRALINE HCL 25 MG TABLET PO (08:42)
[2025-08-20] MEDS: FUROSEMIDE 40 MG TABLET PO ×2 (08:42→17:43)
[2025-08-20] MEDS: INSULIN ASPART (*BKC) 100 UNITS/ML SUB-Q ×3 (08:42→17:40)
[2025-08-20] MEDS: CHOLECALCIFEROL (VITAMIN D3) 25 MCG (1,000 UNITS) TABLET PO (08:42)
--- NOTE | 2025-08-20 12:24 | PCNWS ---
Weekly nutritional screen. Patient is tolerating current Heart healthy diet with intake 25-100% of meals, Ensure BID in place. Pt often refuses care when alert and family is planning for discharge today on hospice care per nursing. No nutritional recommendations at this time.
--- NOTE | 2025-08-20 13:42 | P.PNIM_ITS ---
Progress Note: A&P Assessment and Plan (1) Congestive heart failure: Code(s): I50.9 - Heart failure, unspecified Status: Acute Assessment and Plan: Patient presents with SOB and found to have acute on chronic systolic and diastolic CHF. BNP 21K. CXR showing cardiomegaly, bilateral pleural effusion and congestion with possible pulmonary edema CT Chest showing cardiomegaly with severe multivessel coronary artery calcifications, R>L pleural effusions but no pulm consolidation or atelectasis, except for compression atelectasis of RLL due to the pleural effusion. Improving Continue Lasix. Echo showing EF 40-45% with G3DD, mild concentric LVH, mild-moderate MR and small pericardial effusion. Renal function stable. Negative fluid balance. Weight down about 4kg Cardiology following. Changed to oral Lasix. Monitor urine output, daily weights and I/Os. (2) Acute on chronic respiratory failure with hypoxia and hypercapnia: Code(s): J96.21 - Acute and chronic respiratory failure with hypoxia; J96.22 - Acute and chronic respiratory failure with hypercapnia Status: Acute Assessment and Plan: Improving down to 2 L oxygen ABG on admission 7.286/49/55 on 1L. Normally wears 3L O2 chronically. BiPAP started but only wearing intermittently that correlates with his lack of improvement. MBS showing patient can swallow safely care coordination consulted to help transition patient to hospice care at a skilled nursing. (3) COPD (chronic obstructive pulmonary disease): Code(s): J44.9 - Chronic obstructive pulmonary disease, unspecified Status: Acute Assessment and Plan: No wheezing but sounds distant Continue Solu-Medrol will change to bid Continue with home inhalers. (4) Pleural effusion: Code(s): J90 - Pleural effusion, not elsewhere classified Status: Acute Assessment and Plan: Patient with bilateral R>L pleural effusions. [place] related to CHF Thoracentesis 08/15 with removal of 1100mL of straw colored urine. Study results: Glucose normal. pH normal. <2000 RBC and 152 WBC with normal differential. TP 2.3. Alb 1.4. Studies showing transudative fluid c/w CHF. Diuretic therapy as above. (5) Altered mental status: Code(s): R41.82 - Altered mental status, unspecified Status: Acute Assessment and Plan: Patient remains confused felt related to hypercarbia. Not clear on his baseline mental function. Head CT showing no acute intracranial findings. No focal weakness. B12, folate and TSH normal. Ammonia <9. Vit D low so replacement ordered Plan for hospice care. Follow (6) Paroxysmal atrial fibrillation: Code(s): I48.0 - Paroxysmal atrial fibrillation Status: Chronic Assessment and Plan: Patient with pAFib on Eliquis. Also has hx of DVT. Not on rate lowering agents. Maintaining sinus rhythm Continue Eliquis. Monitor on tele (7) Diabetic acidosis, type II: Code(s): E11.10 - Type 2 diabetes mellitus with ketoacidosis without coma Status: Acute Assessment and Plan: A1c 7.0%. The patient's blood glucose was reviewed on 08/19 Glucose elevated due to steroids. Continue AccuCheks covering with sliding scale. Hypoglycemia protocol available as needed. Resume Lantus. Continue to monitor. (8) Hypertension: Code(s): I10 - Essential (primary) hypertension Status: Acute Assessment and Plan: Patient's blood pressure was reviewed Blood pressure stable Will continue to monitor for now (9) CKD (chronic kidney disease): Code(s): N18.9 - Chronic kidney disease, unspecified Status: Acute Assessment and Plan: Baseline Cr around 1.4-1.8 range. Cr here 1.5-1.7 and stable on Lasix. Continue to monitor. Plan Code status - DNR DVT prophylaxis - Eliquis Subjective Date/time seen: 08/20/25 13:42 Interval history: 69yo male with CHF, COPD, HTN, Chronic resp failure on 3L, DM and bilateral BKAs here for shortness of breath. 08/20/25 Patient was seen examined at bedside. He is feeling better. Still is confused. Breathing is better is on 2 L oxygen. Denies any chest pain, abdominal pain, nausea vomiting. Hospice team is going to have meeting with his family today. Possible plan to discharge on hospice on Monday. Reviewed lab tests WBC 2.4, hemoglobin 9.8, creatinine 1.6 8. Review chest x- ray Exam Narrative: AF 98.0 153/80 86 20 96% 4L HFNC Gen - NARD Chest - mild coarse BS anteriorly. Nml RR CV - RRR S1/S2. Telemetry showing no significant dysrhythmias Abd - Soft, NT/ND, Positive BS Ext -bilateral BKA. Neuro -awake oriented to his name. Psych - difficult to assess Skin - Warm and dry. Const: General: cooperative, no acute distress, well developed, awake, Physically active, average body habitus and well nourished Nutritional Appearance: average body habitus and well nourished Orientation/consciousness: oriented to person HENMT: Head: normal to inspection, No palpable skull fracture present, normocephalic, atraumatic and abrasion Ears: hearing grossly normal bilaterally Eyes: General: appearance normal, both eyes and all related structures Alignment and Position: alignment normal Periorbital: periorbital findings normal Eyelids: eyelids normal Neck: Neck: normal visual inspection and full ROM Chest: Chest palpation & inspection: normal inspection of the chest Resp: Effort & Inspection: normal respiratory effort Cardio: Palpation: normal PMI Rate: regular rate Rhythm: regular rhythm Heart sounds: S1 normal heart sound present and S2 normal heart sound present GI: Inspection: normal to inspection Auscultation: normal bowel sounds Rectal Exam: deferred : General: Yes no CVA tenderness Back/Spine/Pelvis: Back: no CVA tenderness Skin: General skin exam: normal color Lesions: no lesions Rashes: no rashes Trauma: no lacerations or abrasions Neuro: General: oriented to person Extrem: General: normal to inspection Right upper extremity: normal to inspection and shoulder/upper arm Left upper extremity: normal to inspection and shoulder/upper arm Right lower extremity: normal to inspection Left lower extremity: normal to inspection Other: Bilateral [id number] amputation Psych: Appearance: grossly normal Mental Status: mental status grossly normal Affect: normal affect Objective Data Vital Signs Vital Signs: Vital Signs - 24 hr 08/19/25 14:00 08/19/25 15:57 08/19/25 16:00 Temperature 98.2 F Pulse Rate 86 86 86 Respiratory Rate 18 18 Blood Pressure 143/74 H Pulse Oximetry 91 91 Oxygen Delivery High Flow Nasal Cannula Oxygen Flow Rate 4 Fraction of Inspired Oxygen 28 08/19/25 16:00 08/19/25 18:00 08/19/25 20:00 Temperature 97.8 F Pulse Rate 85 88 86 Respiratory Rate 22 H Blood Pressure 150/73 H Pulse Oximetry 93 Oxygen Delivery Oxygen Flow Rate Fraction of Inspired Oxygen 08/19/25 20:00 08/19/25 20:00 08/19/25 20:16 Temperature Pulse Rate 86 Respiratory Rate Blood Pressure Pulse Oximetry 95 92 Oxygen Delivery High Flow Nasal Cannula Oxygen Flow Rate 5 4 Fraction of Inspired Oxygen 08/19/25 20:16 08/19/25 20:22 08/19/25 22:00 Temperature Pulse Rate 85 86 84 Respiratory Rate 16 16 Blood Pressure Pulse Oximetry Oxygen Delivery Oxygen Flow Rate Fraction of Inspired Oxygen 08/20/25 00:00 08/20/25 00:00 08/20/25 00:00 Temperature 98 F Pulse Rate 84 84 Respiratory Rate 22 H Blood Pressure 161/82 H Pulse Oximetry 97 97 Oxygen Delivery High Flow Nasal Cannula Oxygen Flow Rate 5 Fraction of Inspired Oxygen 08/20/25 02:00 08/20/25 04:00 08/20/25 04:00 Temperature Pulse Rate 84 82 Respiratory Rate Blood Pressure Pulse Oximetry 98 Oxygen Delivery High Flow Nasal Cannula Oxygen Flow Rate 5 Fraction of Inspired Oxygen 08/20/25 04:00 08/20/25 05:26 08/20/25 07:58 Temperature 97.7 F Pulse Rate 81 85 Respiratory Rate 20 Blood Pressure 161/82 H Pulse Oximetry 99 92 Oxygen Delivery High Flow Nasal Cannula Oxygen Flow Rate 3 Fraction of Inspired Oxygen 08/20/25 07:58 08/20/25 08:00 08/20/25 08:00 Temperature 97.4 F L Pulse Rate 88 87 88 Respiratory Rate 16 27 H 16 Blood Pressure 165/88 H Pulse Oximetry 91 91 Oxygen Delivery High Flow Nasal Cannula Oxygen Flow Rate 3 Fraction of Inspired Oxygen 08/20/25 08:00 08/20/25 08:06 08/20/25 08:46 Temperature Pulse Rate 88 88 Respiratory Rate 16 Blood Pressure Pulse Oximetry 98 Oxygen Delivery Room Air Oxygen Flow Rate Fraction of Inspired Oxygen 08/20/25 09:30 08/20/25 10:00 08/20/25 10:38 Temperature Pulse Rate 93 Respiratory Rate Blood Pressure Pulse Oximetry 93 85 L Oxygen Delivery Room Air High Flow Therapy with Na Oxygen Flow Rate 1 Fraction of Inspired Oxygen 08/20/25 11:51 08/20/25 12:00 08/20/25 12:00 Temperature 97.5 F L Pulse Rate 91 91 92 Respiratory Rate 25 H 25 H Blood Pressure 149/76 H Pulse Oximetry 92 92 Oxygen Delivery High Flow Nasal Cannula Oxygen Flow Rate 1 Fraction of Inspired Oxygen Intake/Output Intake/Output: Intake & Output 08/17/25 08/18/25 08/19/25 11/26/25 23:59 23:59 23:59 23:59 Intake Total 120 1111.7 1090 360 Output Total 500 600 300 Balance -380 511.7 790 360 Meds/Results Medications: Active Medications Generic Name Dose Route Start Last Admin Trade Name Freq PRN Reason Stop Dose Admin Albuterol/Ipratropium 3 ml 08/19/25 20:00 08/20/25 13:41 Ipratropium 0.5 Mg/Albuterol Sulfate 2.5 Mg (Base) Ampul.Neb 3 Ml INHALATION 3 ml Q6HRT KAYCE Administration Amlodipine Besylate 5 mg 08/15/25 09:00 08/20/25 08:42 Amlodipine Besylate 5 Mg Tablet PO 5 mg DAILY KAYCE Administration Apixaban 5 mg 08/15/25 21:00 08/20/25 08:42 Apixaban 5 Mg Tablet PO 5 mg Q12HR KAYCE Administration Dextrose 12.5 gm 08/15/25 06:34 08/17/25 16:03 Dextrose 50% 25 Gm/50 Ml Syringe IV PUSH 12.5 gm PRN PRN Administration Hypoglycemia Protocol Furosemide 40 mg 08/17/25 09:00 08/20/25 08:42 Furosemide 40 Mg Tablet PO 40 mg BID KAYCE Administration Glucagon 1 mg 08/15/25 06:34 Glucagon For Inj 1 Mg Vial IM PRN PRN Hypoglycemia Protocol Glucose 15 gm 08/15/25 06:34 Glucose Oral Gel 15 Gm Of Glucse In 37.5 Gm Tube PO PRN PRN Hypoglycemia Protocol Dextrose 1,000 mls @ 100 mls/hr 08/15/25 06:34 Dextrose 5% 1,000 Ml IVPB PRN PRN Hypoglycemia Protocol Insulin Aspart 2 - 5 units 08/15/25 08:00 08/20/25 11:41 Insulin Aspart (*Bkc) 100 Units/Ml SUB-Q 3 units TIDWM KAYCE Administration Protocol Insulin Glargine 12 units 08/15/25 21:00 08/19/25 20:51 Insulin Glargine (*Bkc) 100 Units/Ml SUB-Q 12 units HS KAYCE Administration Methylprednisolone Sodium Succinate 60 mg 08/17/25 18:00 08/20/25 11:41 Methylprednisolone Sod Succ 125 Mg Vial IV PUSH 60 mg Q6HR KAYCE Administration Sertraline HCl 25 mg 08/15/25 09:00 08/20/25 08:42 Sertraline Hcl 25 Mg Tablet PO 25 mg DAILY KAYCE Administration Umeclidinium/Vilanterol 1 puff 08/15/25 08:00 08/19/25 08:11 Umeclidinium/Vilanterol 62.5-25 Mcg Ellipta INHALATION 1 puff On Hold: 08/19/25 08:34 DAILYRT KAYCE Administration Vitamin D 25 mcg 08/16/25 09:00 08/20/25 08:42 Cholecalciferol (Vitamin D3) 25 Mcg (1,000 Units) Tablet PO 25 mcg DAILY KAYCE Administration Radiology Results: ITS Impressions Chest CT 08/14/25 21:02 IMPRESSION: 1. Cardiomegaly with severe multivessel coronary artery calcifications. 2. Large right pleural effusion and moderate left pleural effusion due to congestive heart failure. 3. No evidence of pulmonary consolidation or atelectasis, except for compression atelectasis of right lower lobe due to the pleural effusion. Head CT 08/15/25 06:33 IMPRESSION: 1. No acute intracranial findings. Chest X-Ray 08/15/25 14:48 IMPRESSION: 1. No evidence of pneumothorax on the right side. Reduction in the amount of pleural effusion compared with CT scan. 2. Cardiomegaly. Patchy airspace opacity in the lower lung garcia, suspicious of pulmonary edema. Thoracentesis Ultrasound 08/15/25 15:06 IMPRESSION: 1. Successful ultrasound-guided thoracentesis yielding 1100 mL of clear straw- colored fluid. Modified Barium Swallow 08/18/25 14:19 IMPRESSION: Patient tolerated regular consistency oral feedings in the upright position. Please correlate with speech pathologist findings and specific feeding recommendations. Labs Labs: Laboratory Results - last 24 hr 08/15/25 08/19/25 08/19/25 14:14 14:54 20:15 POC Capillary Glucose 240 H 318 H Fluid Cholesterol 35 08/20/25 08/20/25 07:14 11:15 POC Capillary Glucose 236 H 285 H Fluid Cholesterol Quality VTE Prophylaxis VTE prophylaxis: pharmacologic ordered (When able to go back on Eliquis.)
[2025-08-20] MEDS: INSULIN GLARGINE (*BKC) 100 UNITS/ML 12 UNITS SUB-Q (22:19)
[2025-08-21] VITALS (15 sets, daily range): BP systolic 150–164; BP diastolic 81–84; PULSE 80–95; RESP 16–20; TEMP 36.4–37.1; O2SAT 90–95
[2025-08-21 04:13] LABS: Hematocrit 30.0 % (42.0-52.0); Hemoglobin 9.4 g/dL (14.0-18.0); Immature Platelet Fraction Pct 5.2 % (0.9-11.2); Mean Corpuscular HGB Conc 31.3 g/dl (32-36); Mean Corpuscular Hemoglobin 26.5 pg (26-34); Mean Corpuscular Volume 84.5 fl (80-100); Platelet Count Result 140 k/mm3 (150-375); Red Blood Count 3.55 M/mm3 (4.6-6.20); White Blood Count 4.9 K/mm3 (4.5-10.0)
[2025-08-21 04:29] LABS: Anion Gap 2 mmol/L (4-12); Blood Urea Nitrogen 82 mg/dL (9-20); Calcium 8.9 mg/dL (8.4-10.2); Carbon Dioxide 30 mmol/L (22-30); Chloride 100 mmol/L (98-107); Estimated CRCL calculation 41 ml/min; Estimated Glomerular Filt Rate 45; Glucose 180 mg/dL (65-110); Potassium 4.2 mmol/L (3.4-5.0); Sodium 132 mmol/L (137-145)
[2025-08-21] MEDS: IPRATROPIUM 0.5 MG/ALBUTEROL SULFATE 2.5 MG (BASE) AMPUL.NEB 3 ML INHALATION ×3 (07:37→19:40)
[2025-08-21] MEDS: UMECLIDINIUM/VILANTEROL 62.5-25 MCG ELLIPTA 1 PUFF INHALATION (07:51)
--- NOTE | 2025-08-21 08:18 | PC.NURSE ---
Pt transferred to room 341 at 0753. Report given to DOREEN Mccabe.
[2025-08-21] MEDS: APIXABAN 5 MG TABLET PO ×2 (09:02→21:10)
[2025-08-21] MEDS: SERTRALINE HCL 25 MG TABLET PO (09:02)
[2025-08-21] MEDS: CHOLECALCIFEROL (VITAMIN D3) 25 MCG (1,000 UNITS) TABLET PO (09:02)
[2025-08-21] MEDS: FUROSEMIDE 40 MG TABLET PO ×2 (09:02→17:29)
--- NOTE | 2025-08-21 11:35 | P.PNIM_ITS ---
Progress Note: A&P Assessment and Plan (1) Congestive heart failure: Code(s): I50.9 - Heart failure, unspecified Status: Acute Assessment and Plan: Patient presents with SOB and found to have acute on chronic systolic and diastolic CHF. BNP 21K. CXR showing cardiomegaly, bilateral pleural effusion and congestion with possible pulmonary edema CT Chest showing cardiomegaly with severe multivessel coronary artery calcifications, R>L pleural effusions but no pulm consolidation or atelectasis, except for compression atelectasis of RLL due to the pleural effusion. Started on IV Lasix. Echo showing EF 40-45% with G3DD, mild concentric LVH, mild-moderate MR and small pericardial effusion. Renal function stable. Cardiology following. Changed to oral Lasix. Monitor urine output, daily weights and I/Os. (2) Acute on chronic respiratory failure with hypoxia and hypercapnia: Code(s): J96.21 - Acute and chronic respiratory failure with hypoxia; J96.22 - Acute and chronic respiratory failure with hypercapnia Status: Acute Assessment and Plan: ABG on admission 7.286/49/55 on 1L. Normally wears 3L O2 chronically. BiPAP started but only wearing intermittently that correlates with his lack of improvement. MBS showing patient can swallow safely Spoke with dtr in the room and options discussed including hospice. Explained that once patient feels better, he refuses treatment and only able to provide care is when he is obtunded. She was wanting the patient to be made comfortable so care coordination consulted to help transition patient to hospice care at a senior care. THis is being arranged. (3) COPD (chronic obstructive pulmonary disease): Code(s): J44.9 - Chronic obstructive pulmonary disease, unspecified Status: Acute Assessment and Plan: No wheezing but sounds distant Continue Solu-Medrol but will wean down Continue with home inhalers. (4) Pleural effusion: Code(s): J90 - Pleural effusion, not elsewhere classified Status: Acute Assessment and Plan: Patient with bilateral R>L pleural effusions. [place] related to CHF Thoracentesis 08/15 with removal of 1100mL of straw colored urine. Study results: Glucose normal. pH normal. <2000 RBC and 152 WBC with normal differential. TP 2.3. Alb 1.4. Studies showing transudative fluid c/w CHF. Diuretic therapy as above. (5) Altered mental status: Code(s): R41.82 - Altered mental status, unspecified Status: Acute Assessment and Plan: Patient remains confused felt related to hypercarbia. Not clear on his baseline mental function. Head CT showing no acute intracranial findings. No focal weakness. B12, folate and TSH normal. Ammonia <9. Vit D low so replacement ordered Plan for hospice care. Follow (6) Paroxysmal atrial fibrillation: Code(s): I48.0 - Paroxysmal atrial fibrillation Status: Chronic Assessment and Plan: Patient with pAFib on Eliquis. Also has hx of DVT. Not on rate lowering agents. Maintaining sinus rhythm Continue Eliquis for now. Okay to stop tele (7) Diabetic acidosis, type II: Code(s): E11.10 - Type 2 diabetes mellitus with ketoacidosis without coma Status: Acute Assessment and Plan: A1c 7.0%. The patient's blood glucose was reviewed on 08/21 Glucose elevated due to steroids. Continue AccuCheks covering with sliding scale. Hypoglycemia protocol available as needed. Weaning steroids so will cut Lantus dose. Continue to monitor. (8) Hypertension: Code(s): I10 - Essential (primary) hypertension Status: Acute Assessment and Plan: Patient's blood pressure was reviewed on 08/21 Blood pressure elevated at times Will continue to monitor for now (9) CKD (chronic kidney disease): Code(s): N18.9 - Chronic kidney disease, unspecified Status: Acute Assessment and Plan: Baseline Cr around 1.4-1.8 range. Cr here 1.5-1.7 and stable on Lasix. Continue to monitor. Plan Code status - DNR DVT prophylaxis - Eliquis Subjective Date/time seen: 08/21/25 11:35 Interval history: 69yo male with CHF, COPD, HTN, Chronic resp failure on 3L, DM and bilateral BKAs here for shortness of breath. Resuming care. Chart reviewed. Patient alert but confused. He denies pain or any problems. Review of Systems Review of Systems: ROS unobtainable: Yes unobtainable due to mental status Exam Narrative: AF 97.6 162/84 94 18 95% 1L HFNC Gen - NARD Chest - bronchial BS in the bases, nml RR CV - RRR S1/S2 Abd - Soft, NT/ND, Positive BS Ext -bilateral BKA. Neuro - awake, alert but confused Psych - difficult to assess Skin - Warm and dry. Objective Data Vital Signs Vital Signs: Vital Signs - 24 hr 08/20/25 11:51 08/20/25 12:00 08/20/25 12:00 Temperature 97.5 F L Pulse Rate 91 91 92 Respiratory Rate 25 H 25 H Blood Pressure 149/76 H Pulse Oximetry 92 92 Oxygen Delivery High Flow Nasal Cannula Oxygen Flow Rate 1 08/20/25 13:42 08/20/25 13:42 08/20/25 13:50 Temperature Pulse Rate 92 92 Respiratory Rate 16 16 Blood Pressure Pulse Oximetry 90 Oxygen Delivery High Flow Nasal Cannula Oxygen Flow Rate 1 08/20/25 14:00 08/20/25 16:00 08/20/25 16:00 Temperature 98.1 F Pulse Rate 96 95 95 Respiratory Rate 23 H Blood Pressure 155/71 H Pulse Oximetry 94 Oxygen Delivery Oxygen Flow Rate 08/20/25 20:00 08/20/25 20:00 08/20/25 20:00 Temperature 98.3 F Pulse Rate 90 91 92 Respiratory Rate 20 Blood Pressure 150/84 H Pulse Oximetry 91 91 Oxygen Delivery High Flow Nasal Cannula Oxygen Flow Rate 3 08/20/25 20:20 08/20/25 20:20 08/20/25 20:26 Temperature Pulse Rate 93 90 Respiratory Rate 18 18 Blood Pressure Pulse Oximetry 91 Oxygen Delivery High Flow Nasal Cannula Oxygen Flow Rate 1 08/21/25 00:00 08/21/25 00:00 08/21/25 04:00 Temperature 97.7 F Pulse Rate 94 91 90 Respiratory Rate 20 Blood Pressure 164/82 H Pulse Oximetry 92 Oxygen Delivery Oxygen Flow Rate 08/21/25 07:39 08/21/25 07:39 08/21/25 07:46 Temperature 97.6 F Pulse Rate 93 88 Respiratory Rate 18 16 Blood Pressure 162/84 H Pulse Oximetry 92 95 Oxygen Delivery High Flow Nasal Cannula Oxygen Flow Rate 1 08/21/25 07:51 08/21/25 08:00 08/21/25 08:00 Temperature Pulse Rate 89 89 94 Respiratory Rate 18 18 Blood Pressure Pulse Oximetry 95 Oxygen Delivery Nasal Cannula Oxygen Flow Rate 1 Intake/Output Intake/Output: Intake & Output 08/18/25 08/19/25 08/20/25 08/21/25 23:59 23:59 23:59 23:59 Intake Total 1111.7 1090 1150 560 Output Total 600 300 Balance 511.7 790 1150 560 Meds/Results Medications: Active Medications Generic Name Dose Route Start Last Admin Trade Name Freq PRN Reason Stop Dose Admin Albuterol/Ipratropium 3 ml 08/19/25 20:00 08/21/25 07:37 Ipratropium 0.5 Mg/Albuterol Sulfate 2.5 Mg (Base) Ampul.Neb 3 Ml INHALATION 3 ml Q6HRT KAYCE Administration Amlodipine Besylate 5 mg 08/15/25 09:00 08/21/25 09:02 Amlodipine Besylate 5 Mg Tablet PO 5 mg DAILY KAYCE Administration Apixaban 5 mg 08/15/25 21:00 08/21/25 09:02 Apixaban 5 Mg Tablet PO 5 mg Q12HR KAYCE Administration Dextrose 12.5 gm 08/15/25 06:34 08/17/25 16:03 Dextrose 50% 25 Gm/50 Ml Syringe IV PUSH 12.5 gm PRN PRN Administration Hypoglycemia Protocol Furosemide 40 mg 08/17/25 09:00 08/21/25 09:02 Furosemide 40 Mg Tablet PO 40 mg BID KAYCE Administration Glucagon 1 mg 08/15/25 06:34 Glucagon For Inj 1 Mg Vial IM PRN PRN Hypoglycemia Protocol Glucose 15 gm 08/15/25 06:34 Glucose Oral Gel 15 Gm Of Glucse In 37.5 Gm Tube PO PRN PRN Hypoglycemia Protocol Dextrose 1,000 mls @ 100 mls/hr 08/15/25 06:34 Dextrose 5% 1,000 Ml IVPB PRN PRN Hypoglycemia Protocol Insulin Aspart 2 - 5 units 08/15/25 08:00 08/21/25 08:08 Insulin Aspart (*Bkc) 100 Units/Ml SUB-Q Not Given TIDWM KAYCE Protocol Insulin Glargine 12 units 08/15/25 21:00 08/20/25 22:19 Insulin Glargine (*Bkc) 100 Units/Ml SUB-Q 12 units HS KAYCE Administration Methylprednisolone Sodium Succinate 60 mg 08/20/25 21:00 08/21/25 09:02 Methylprednisolone Sod Succ 125 Mg Vial IV PUSH 60 mg Q12HR KAYCE Administration Sertraline HCl 25 mg 08/15/25 09:00 08/21/25 09:02 Sertraline Hcl 25 Mg Tablet PO 25 mg DAILY KAYCE Administration Umeclidinium/Vilanterol 1 puff 08/15/25 08:00 08/21/25 07:51 Umeclidinium/Vilanterol 62.5-25 Mcg Ellipta INHALATION 1 puff DAILYRT KAYCE Administration Vitamin D 25 mcg 08/16/25 09:00 08/21/25 09:02 Cholecalciferol (Vitamin D3) 25 Mcg (1,000 Units) Tablet PO 25 mcg DAILY KAYCE Administration Radiology Results: ITS Impressions Chest CT 08/14/25 21:02 IMPRESSION: 1. Cardiomegaly with severe multivessel coronary artery calcifications. 2. Large right pleural effusion and moderate left pleural effusion due to congestive heart failure. 3. No evidence of pulmonary consolidation or atelectasis, except for compression atelectasis of right lower lobe due to the pleural effusion. Head CT 08/15/25 06:33 IMPRESSION: 1. No acute intracranial findings. Chest X-Ray 08/15/25 14:48 IMPRESSION: 1. No evidence of pneumothorax on the right side. Reduction in the amount of pleural effusion compared with CT scan. 2. Cardiomegaly. Patchy airspace opacity in the lower lung garcia, suspicious of pulmonary edema. Thoracentesis Ultrasound 08/15/25 15:06 IMPRESSION: 1. Successful ultrasound-guided thoracentesis yielding 1100 mL of clear straw- colored fluid. Modified Barium Swallow 08/18/25 14:19 IMPRESSION: Patient tolerated regular consistency oral feedings in the upright position. Please correlate with speech pathologist findings and specific feeding recommendations. Labs Labs: Laboratory Results - last 24 hr 08/20/25 08/20/25 08/21/25 15:58 20:18 03:50 WBC 4.9 RBC 3.55 L Hgb 9.4 L Hct 30.0 L MCV 84.5 MCH 26.5 MCHC 31.3 L RDW 15.0 H Plt Count 140 L MPV 10.9 H % Immature Plt Fraction 5.2 Sodium 132 L Potassium 4.2 Chloride 100 Carbon Dioxide 30 Anion Gap 2 L BUN 82 H D Creatinine 1.55 H Estim Creat Clear Calc 41 Estimated GFR 45 L Glucose 180 H POC Capillary Glucose 215 H 270 H Calcium 8.9 08/21/25 07:09 WBC RBC Hgb Hct MCV MCH MCHC RDW Plt Count MPV % Immature Plt Fraction Sodium Potassium Chloride Carbon Dioxide Anion Gap BUN Creatinine Estim Creat Clear Calc Estimated GFR Glucose POC Capillary Glucose 136 H Calcium
[2025-08-21] MEDS: INSULIN ASPART (*BKC) 100 UNITS/ML SUB-Q (17:29)
[2025-08-21] MEDS: INSULIN GLARGINE (*BKC) 100 UNITS/ML 6 UNITS SUB-Q (21:08)
[2025-08-22] VITALS (8 sets, daily range): BP systolic 158; BP diastolic 88; PULSE 85–90; RESP 16–20; TEMP 36.6; O2SAT 87–95
[2025-08-22] MEDS: IPRATROPIUM 0.5 MG/ALBUTEROL SULFATE 2.5 MG (BASE) AMPUL.NEB 3 ML INHALATION ×3 (01:35→13:44)
[2025-08-22] MEDS: UMECLIDINIUM/VILANTEROL 62.5-25 MCG ELLIPTA 1 PUFF INHALATION (07:17)
[2025-08-22] MEDS: FUROSEMIDE 40 MG TABLET PO (09:06)
[2025-08-22] MEDS: CHOLECALCIFEROL (VITAMIN D3) 25 MCG (1,000 UNITS) TABLET PO (09:06)
[2025-08-22] MEDS: SERTRALINE HCL 25 MG TABLET PO (09:07)
[2025-08-22] MEDS: APIXABAN 5 MG TABLET PO (09:07)
--- NOTE | 2025-08-22 11:23 | PM.DS ---
DS: Admitting Diagnosis Discharge Date 08/22/2025 Admitting Diagnosis Shortness of breath DS: Discharge Diagnosis Discharge Diagnosis (1) Congestive heart failure: Code(s): I50.9 - Heart failure, unspecified Status: Acute (2) Acute on chronic respiratory failure with hypoxia and hypercapnia: Code(s): J96.21 - Acute and chronic respiratory failure with hypoxia; J96.22 - Acute and chronic respiratory failure with hypercapnia Status: Acute (3) COPD (chronic obstructive pulmonary disease): Code(s): J44.9 - Chronic obstructive pulmonary disease, unspecified Status: Acute (4) Pleural effusion: Code(s): J90 - Pleural effusion, not elsewhere classified Status: Acute (5) Altered mental status: Code(s): R41.82 - Altered mental status, unspecified Status: Acute (6) Paroxysmal atrial fibrillation: Code(s): I48.0 - Paroxysmal atrial fibrillation Status: Chronic (7) Diabetic acidosis, type II: Code(s): E11.10 - Type 2 diabetes mellitus with ketoacidosis without coma Status: Acute (8) Hypertension: Code(s): I10 - Essential (primary) hypertension Status: Acute (9) CKD (chronic kidney disease): Code(s): N18.9 - Chronic kidney disease, unspecified Status: Acute DS: Summary Hospital Course Hospital Course: # Congestive heart failure: Patient presents with SOB and found to have acute on chronic systolic and diastolic CHF. BNP 21K. CXR showing cardiomegaly, bilateral pleural effusion and congestion with possible pulmonary edema CT Chest showing cardiomegaly with severe multivessel coronary artery calcifications, R>L pleural effusions but no pulm consolidation or atelectasis, except for compression atelectasis of RLL due to the pleural effusion. Started on IV Lasix. Echo showing EF 40-45% with G3DD, mild concentric LVH, mild-moderate MR and small pericardial effusion. Renal function stable. Cardiology following. Changed to oral Lasix. Monitor urine output, daily weights and I/Os. # Acute on chronic respiratory failure with hypoxia and hypercapnia: ABG on admission 7.286/49/55 on 1L. Normally wears 3L O2 chronically. BiPAP started but only wearing intermittently that correlates with his lack of improvement. MBS showing patient can swallow safely Spoke with dtr in the room and options discussed including hospice. Explained that once patient feels better, he refuses treatment and only able to provide care is when he is obtunded. She was wanting the patient to be made comfortable so care coordination consulted to help transition patient to hospice care at a halfway. THis is being arranged and patient getting transferred to nursing facility with hospice discussion there. # COPD (chronic obstructive pulmonary disease): No wheezing but sounds distant Continue Solu-Medrol but will wean down Continue with home inhalers. # Pleural effusion: Patient with bilateral R>L pleural effusions. [place] related to CHF Thoracentesis 08/15 with removal of 1100mL of straw colored urine. Study results: Glucose normal. pH normal. <2000 RBC and 152 WBC with normal differential. TP 2.3. Alb 1.4. Studies showing transudative fluid c/w CHF. Diuretic therapy as above. # Altered mental status: Patient remains confused felt related to hypercarbia. Not clear on his baseline mental function. Head CT showing no acute intracranial findings. No focal weakness. B12, folate and TSH normal. Ammonia <9. Vit D low so replacement ordered Plan for hospice care. Follow # Paroxysmal atrial fibrillation: Patient with pAFib on Eliquis. Also has hx of DVT. Not on rate lowering agents. Maintaining sinus rhythm Continue Eliquis for now. Okay to stop tele # Diabetic acidosis, type II: A1c 7.0%. Glucose elevated due to steroids. Continue AccuCheks covering with sliding scale. Hypoglycemia protocol available as needed. Weaning steroids so will cut Lantus dose. Continue to monitor. # Hypertension: Blood pressure elevated at times Will continue to monitor for now # CKD (chronic kidney disease): Baseline Cr around 1.4-1.8 range. Cr here 1.5-1.7 and stable on Lasix. Continue to monitor. # Code status - DNR # DVT prophylaxis - Eliquis Time Spent with Patient Time attestation: Total time spent providing and/or coordinating discharge services: 45 minutes Exam Narrative: Gen - NARD Chest - bronchial BS in the bases, nml RR CV - RRR S1/S2 Abd - Soft, NT/ND, Positive BS Ext -bilateral BKA. Neuro - awake, alert but confused Psych -normal mood, calm cooperative Skin - Warm and dry. DS: Data Data Completed and Pending Completed studies during hospitalization: Pending at discharge 08/15/25 14:20 Cytology [PTH] Routine Exam Type: CA echo doppler color flow Complete two-dimensional, color flow and Doppler transthoracic echocardiogram is performed. Staff Referring Physician: Mariel Garnica NP Cuffing Machine Operator: Denis Eduardo III Attending Provider: Blair Zuluaga MD Summary 1. Complete two-dimensional, color flow and Doppler transthoracic echocardiogram is performed. 2. Left ventricular chamber dimension is moderately enlarged. 3. Left ventricular systolic function is moderately globally reduced, estimated at 40-45. 4. There is mild concentric increased left ventricular wall thickness. 5. The left ventricular diastolic function is grade III diastolic dysfunction. 6. E/e' 22 is elevated. 7. Left atrial chamber dimension is moderately enlarged. 8. There is moderate aortic valve sclerosis. 9. The mitral valve has a mildly calcified annulus. 10. There is mild to moderate mitral valve regurgitation. 11. There is trace tricuspid valve regurgitation. 12. There is small circumferential pericardial effusion. 13. Pleural effusion noted. Left Ventricle E/e' 22 is elevated. Left ventricular chamber dimension is moderately enlarged. Left ventricular systolic function is moderately globally reduced, estimated at 40-45. There is mild concentric increased left ventricular wall thickness. The left ventricular diastolic function is grade III diastolic dysfunction. Right Ventricle Right ventricular chamber dimension is not well visualized. Right ventricular systolic function is normal based on normal TAPSE 2.2 cm. Left Atria Left atrial chamber dimension is moderately enlarged. Right Atria Right atrial chamber dimension is normal. Aortic Valve The aortic valve is trileaflet. There is moderate aortic valve sclerosis. There is no aortic valve stenosis. There is no aortic valve regurgitation. Pulmonic Valve There is no pulmonic regurgitation. Mitral Valve The mitral valve has a mildly calcified annulus. There is no mitral valve stenosis. There is mild to moderate mitral valve regurgitation. Tricuspid Valve There is trace tricuspid valve regurgitation. RVSP is not measured due to an inadequate TR jet. Pericardium/Pleural There is small circumferential pericardial effusion. No cardiac tamponade. Pleural effusion noted. Inferior Vena Cava Normal inferior vena cava with >50% collapse upon inspiration consistent with normal right atrial pressure, 5 mmHg. Aorta The aortic root size at the sinus of Valsalva is normal. Labs on day of discharge: Labs from last 24 hours 08/22/25 08/21/25 08/21/25 07:41 21:12 17:04 POC Capillary Glucose 105 221 H 254 H 08/21/25 11:47 POC Capillary Glucose 186 H Preliminary micro results at discharge 08/15/25 14:14 Acid Fast Bacilli Culture - Preliminary Pleural Fluid Imaging Radiologist's impression: ITS Impressions Chest X-Ray 08/14/25 17:41 IMPRESSION: 1. Cardiomegaly, bilateral pleural effusion and congestion of the lungs with possible pulmonary edema in the perihilar region on both sides. Findings suggestive of congestive heart failure. Chest CT 08/14/25 21:02 IMPRESSION: 1. Cardiomegaly with severe multivessel coronary artery calcifications. 2. Large right pleural effusion and moderate left pleural effusion due to congestive heart failure. 3. No evidence of pulmonary consolidation or atelectasis, except for compression atelectasis of right lower lobe due to the pleural effusion. Head CT 08/15/25 06:33 IMPRESSION: 1. No acute intracranial findings. Chest X-Ray 08/15/25 14:48 IMPRESSION: 1. No evidence of pneumothorax on the right side. Reduction in the amount of pleural effusion compared with CT scan. 2. Cardiomegaly. Patchy airspace opacity in the lower lung garcia, suspicious of pulmonary edema. Thoracentesis Ultrasound 08/15/25 15:06 IMPRESSION: 1. Successful ultrasound-guided thoracentesis yielding 1100 mL of clear straw-colored fluid. Modified Barium Swallow 08/18/25 14:19 IMPRESSION: Patient tolerated regular consistency oral feedings in the upright position. Please correlate with speech pathologist findings and specific feeding recommendations. Discharge Plan Discharge Attending physician on discharge: Ervin Marcum Consulting providers: Juliane Lou; Julius Christopher Discharging Clinician: Ervin Marcum Anticipated Discharge Date/Time: 08/22/25 11:28 Patient Disposition: Hospice - Medical Facility Activity: as tolerated Diet: as tolerated and heart healthy Patient Instructions: Heart Failure (GEN), Hypoxia (GEN) Patient Language: Cypriot Stand Alone Forms: General Discharge Information, Intermediate Discharge Follow-up/Referrals: Mesfin Whitley MD [Primary Care Provider, Emergency Medicine] - 1 Week Discharge Medications: New furosemide 40 mg Tablet 40 mg PO BID Qty: 30 0RF insulin glargine [Lantus U-100 Insulin] 100 unit/mL Solution 6 unit subcut HS Qty: 10 0RF ipratropium-albuterol 0.5 mg-3 mg(2.5 mg base)/3 mL Solution For Nebulization 3 ml inhalation Q6HRT Qty: 30 0RF Continued metformin 500 mg tablet 500 mg PO BID sertraline [Zoloft] 50 mg Tablet 25 mg PO QAM Qty: 30 0RF umeclidinium-vilanterol [Anoro Ellipta] 62.5-25 mcg/actuation Blister With Device 1 inh inhalation DAILYRT 30 Days Qty: 1 2RF Eliquis 5 mg tablet 5 mg PO Q12H amlodipine 5 mg tablet 5 mg PO DAILY Discontinued insulin glargine [Lantus Solostar U-100 Insulin] 100 unit/mL (3 mL) insulin pen 15 unit subcut HS Qty: 15 0RF insulin lispro 100 unit/mL insulin pen 4 unit subcut AC Qty: 15 0RF Rx Instructions: Before meals, hold for a glucose <150 amlodipine [Norvasc] 5 mg Tablet 5 mg PO DAILY 30 Days Qty: 30 0RF Eliquis 5 mg Tablet 5 mg PO Q12HR 30 Days Qty: 60 0RF furosemide 40 mg Tablet 40 mg PO DAILY 30 Days Qty: 30 0RF furosemide [Lasix] 40 mg tablet 40 mg PO DAILY umeclidinium-vilanterol [Anoro Ellipta] 62.5-25 mcg/actuation blister with device 1 inh inhalation DAILY metformin 500 mg tablet 500 mg PO BID insulin glargine [Basaglar KwikPen U-100 Insulin] 100 unit/mL (3 mL) insulin pen 15 unit subcut HS insulin lispro 100 unit/mL insulin pen 4 unit subcut TIDWM Rx Instructions: HOLD FOR GLUCOSE <150 sertraline 25 mg tablet 25 mg PO DAILY Date of admission: 08/15/25 13:32 Primary Care Provider: Mesfin Whitley Admitting Provider: Blair Zuluaga Attending physician on admission: Blair Zuluaga Condition: Guarded Prognosis
[2025-08-22] MEDS: INSULIN ASPART (*BKC) 100 UNITS/ML SUB-Q (12:41)
== END 2025-08-22 15:20 | disposition hospice, inpatient (51) | DRG 291 ==
LOC: ANHED 21:59 → ANHIMU 08-15 00:05 → ANH3MED 08-21 07:53
PROVIDERS: Emergency Medicine; Internal Medicine; Nurse Practitioner; Admitting Provider Internal Medicine; Emergency Provider Emergency Medicine; PCP Emergency Medicine; Visit Provider Internal Medicine
DX: I13.0 Hypertensive heart and chronic kidney disease with heart failure and stage 1 through stage 4 chronic kidney disease, or unspecified chronic kidney disease (principal); E11.10 Type 2 diabetes mellitus with ketoacidosis without coma; I50.33 Acute on chronic diastolic (congestive) heart failure; J96.22 Acute and chronic respiratory failure with hypercapnia; J96.21 Acute and chronic respiratory failure with hypoxia; J91.8 Pleural effusion in other conditions classified elsewhere; T38.0X5A Adverse effect of glucocorticoids and synthetic analogues, initial encounter; E11.319 Type 2 diabetes mellitus with unspecified diabetic retinopathy without macular edema; E11.22 Type 2 diabetes mellitus with diabetic chronic kidney disease; E78.5 Hyperlipidemia, unspecified; F41.9 Anxiety disorder, unspecified; F32.A Depression, unspecified; F17.210 Nicotine dependence, cigarettes, uncomplicated; H91.90 Unspecified hearing loss, unspecified ear; I48.0 Paroxysmal atrial fibrillation; J44.9 Chronic obstructive pulmonary disease, unspecified; K21.9 Gastro-esophageal reflux disease without esophagitis; N18.30 Chronic kidney disease, stage 3 unspecified; R41.82 Altered mental status, unspecified; Z89.512 Acquired absence of left leg below knee; Z89.511 Acquired absence of right leg below knee; Z99.81 Dependence on supplemental oxygen; Z85.46 Personal history of malignant neoplasm of prostate; Z79.4 Long term (current) use of insulin; Z79.84 Long term (current) use of oral hypoglycemic drugs; Z79.01 Long term (current) use of anticoagulants; Z86.11 Personal history of tuberculosis; Z90.49 Acquired absence of other specified parts of digestive tract; Z86.718 Personal history of other venous thrombosis and embolism; Z66 Do not resuscitate
CPT/HCPCS: 32555; 36415; 36600; 70450; 71045; 71250; 74230; 80048; 80053; 80069; 81001; 82042; 82140; 82150; 82306; 82375; 82607; 82746; 82805; 82945; 82948; 83036; 83050; 83615; 83735; 83880; 83986; 84100; 84157; 84311; 84443; 84478; 84484; 85018; 85025; 85027; 85055; 85610; 85730; 87206; 88108; 88305; 89051; 92610; 92611; 93005; 93306; 94002; 94003; 94640; 96374; 97110; 97162; 97166; 97530; 99285; A9270; G0378; J1815; J1938; J2919; J7042